=== PATIENT | male | born 1960 | race Caucasian/White ===

== ENCOUNTER 2020-08-07 17:26 | Emergency (ER) | payer BC, SELFPAY ==
[2020-08-07] VITALS (11 sets, daily range): BP systolic 88–109; BP diastolic 59–74; PULSE 72–92; RESP 16; TEMP 36.8; O2SAT 95–100; BMI 26.9
[2020-08-07 17:48] LABS: INR 1.2 (0.9-1.3); Prothrombin Time 13.7 SECONDS (10.1-12.7)
[2020-08-07 17:50] LABS: PTT Partial Thromboplastin Tim 29 SECONDS (26.4-36.2)
[2020-08-07 17:52] LABS: Alanine Aminotransferase 70 IU/L (<50); Albumin Globulin Ratio 1.3 (1.0-2.8); Alkaline Phosphatase 166 U/L (38-126); Aspartate Aminotransferase 36 IU/L (17-59); BUN Creatinine Ratio 20.4 (6-22); Bilirubin Total 1.1 mg/dL (0.2-1.3); Blood Urea Nitrogen 11 mg/dL (9-20); Calcium 8.1 mg/dL (8.4-10.2); Carbon Dioxide 28 mmol/L (22-32); Chloride 106 mmol/L (98-107); Estimated Glomerular Filt Rate > 60.0 mL/min (>60); Globulin 2.4 g/dL (1.7-4.1); Glucose 101 mg/dL (70-100); HEMOLYSIS < 15 (0-50); Hematocrit 29.5 % (41-53); Lipase < 10 U/L (23-300); Mean Corpuscular HGB Conc 33.8 % (30-36); Mean Corpuscular Hemoglobin 33.1 PG (26-34); Mean Corpuscular Volume 97.9 fL (80-100); Platelet Count 63 X10^3/uL (150-400); Potassium 3.4 mmol/L (3.4-5.1); Red Blood Cell Count 3.01 X10^6/uL (4.5-5.9); Sodium 134 mmol/L (137-145); Total Protein 5.4 g/dL (6.3-8.2)
[2020-08-07 17:54] LABS: Add Manual Diff / Slide Review YES
[2020-08-07 18:12] LABS: Neutrophils Absolute Manual 570 /uL (3000-5900); RBC Morphology Normal Morphology; Total Cells Counted 100
[2020-08-07 18:13] LABS: Platelet Estimate Decreased on smear
--- NOTE | 2020-08-07 18:21 | ED.GENADULT ---
HPI - General Adult General Chief complaint: Abdominal Pain Stated complaint: Abdominal Pain Time Seen by Provider: 08/07/20 17:57 Source: patient Mode of arrival: EMS Limitations: no limitations History of Present Illness HPI narrative: Patient is a 60-year-old male. History of cholangiocarcinoma. Had a Whipple approximately 2 years ago. Is currently being seen by Oncology at [facility]. His last chemo was approximately 1 week ago. Here for evaluation of bilateral lower abdominal pain. States it is a sharp pain. Has had diarrhea since the surgery and this is not changed. No changes urinary status. No vomiting. No fevers. Related Data Allergies Allergy/AdvReac Type Severity Reaction Status Date / Time erythromycin base Allergy Verified 08/07/20 17:39 Penicillins Allergy Verified 08/07/20 17:39 Review of Systems Constitutional Constitutional: Denies fever(s) Cardiovascular Cardiovascular: Denies chest pain and Denies dyspnea Respiratory Respiratory: Denies dyspnea Gastrointestinal Gastrointestinal: Reports abdominal pain, Reports diarrhea (Not new), Denies nausea and Denies vomiting Genitourinary Genitourinary: Denies dysuria Genitourinary: Denies dysuria Musculoskeletal Musculoskeletal: Denies arthralgias and Denies myalgias Integumentary/Breasts Skin/Breast: Denies lesions and Denies rash Neurologic Neurologic: Denies behavioral changes Psychiatric Psychiatric: Denies behavioral changes Hematologic/Lymphatic On Anticoagulants: No Allergic/Immunologic Allergic/Immunologic: Denies urticaria Patient History Medical History Cholangiocarcinoma Lqumx-Hmfvhsdjr-Tvlyv syndrome Social History Smoking Status: Former smoker Smoking Status: Former smoker alcohol intake frequency: 0-2 drinks per day Substance Use Type: does not use Exam Initial Vital Signs Initial Vital Signs: Vital Signs Temperature 98.2 F 08/07/20 17:25 Pulse Rate 92 H 08/07/20 17:25 Respiratory Rate 16 08/07/20 17:25 Blood Pressure 105/59 L 08/07/20 17:25 Pulse Oximetry 100 08/07/20 17:25 Const General: cooperative, comfortable and well developed Limitations: mental status not altered HENMT Head: normal to inspection and normocephalic Resp Effort & Inspection: normal respiratory effort Auscultation: clear to auscultation bilaterally Cardio Rate: regular rate Rhythm: regular rhythm GI Inspection: non-distended Palpation: soft, No firm and tender (Bilateral lower abdomen) Skin Other: Well-healed surgical incision midline abdomen consistent with stated Whipple history Neuro General: patient alert and patient awake Cognition: normal cognition Speech: speech normal Extrem General: capillary refill normal Psych Appearance: grossly normal and well kempt Course Orders Ordered: ED Orders 08/07/20 17:31 Complete Blood Count AUTO DIFF Stat Comprehensive Metabolic Panel Stat Lipase Stat Partial Thromboplastin Time Stat Prothrombin Time INR Stat 08/07/20 17:40 EKG-12 Lead Stat 08/07/20 18:22 CT abdomen pelvis w con Stat Discontinued Medications Hydromorphone HCl (Hydromorphone 1 Mg Inj) 1 mg IV NOW ONE Stop: 08/07/20 18:50 Last Admin: 08/07/20 18:54 Dose: 1 mg Documented by: LEONARD Sodium Chloride (Normal Saline 0.9%) 1,000 mls @ 1,000 mls/hr IV BOLUS ONE Stop: 08/07/20 19:20 Last Infusion: 08/07/20 20:35 Dose: 0 mls/hr Documented by: Admin: 08/07/20 18:54 Dose: 1,000 mls/hr Documented by: LEONARD Vital Signs Vital signs: Vital Signs - 8 hr 08/07/20 17:25 08/07/20 17:37 08/07/20 18:00 Temperature 98.2 F Pulse Rate 92 H 92 H 80 Respiratory Rate 16 Blood Pressure 105/59 L 96/68 Pulse Oximetry 100 100 100 08/07/20 18:30 08/07/20 18:54 08/07/20 19:00 Temperature Pulse Rate 76 82 Respiratory Rate Blood Pressure 106/63 109/74 95/65 Pulse Oximetry 100 95 100 08/07/20 19:30 08/07/20 20:00 08/07/20 20:24 Temperature Pulse Rate 77 72 82 Respiratory Rate Blood Pressure 94/64 94/69 99/66 Pulse Oximetry 96 99 99 08/07/20 20:30 08/07/20 20:32 Temperature Pulse Rate 74 79 Respiratory Rate Blood Pressure 88/66 L 93/62 Pulse Oximetry 100 100 Medical Decision Making Lab Data Lab results reviewed: Yes I reviewed the patient's lab results. Result diagrams: 08/07/20 17:31 08/07/20 17:31 Labs: Lab Results 08/07/20 08/07/20 08/07/20 Range/Units 17:31 17:31 17:31 WBC 1.0 L* (4.5-11.0) X10^3/uL RBC 3.01 L (4.5-5.9) X10^6/uL Hgb 10.0 L (13.5-17.5) g/dL Hct 29.5 L (41-53) % MCV 97.9 (80-100) fL MCH 33.1 (26-34) PG MCHC 33.8 (30-36) % RDW 15.0 H (11.6-14.8) % Plt Count 63 L (150-400) X10^3/uL Neut % (Auto) Not Reportable Lymph % (Auto) Not Reportable Price % (Auto) Not Reportable Eos % (Auto) Not Reportable Baso % (Auto) Not Reportable Lymph # (Auto) Not Reportable Price # (Auto) Not Reportable Baso # (Auto) Not Reportable Total Counted 100 Seg Neutrophils % 57.0 (38-70) % Lymphocytes % (Manual) 28.0 (25-45) % Monocytes % (Manual) 14.0 H (2-11) % Eosinophils % (Manual) 1.0 L (2-4) % Neutrophils # (Manual) 570 L (2948-8150) /uL Platelet Estimate Decreased on smear RBC Morphology Normal morphology PT 13.7 H (10.1-12.7) SECONDS INR 1.2 (0.9-1.3) APTT 29 (26.4-36.2) SECONDS Sodium 134 L (137-145) mmol/L Potassium 3.4 (3.4-5.1) mmol/L Chloride 106 (98-107) mmol/L Carbon Dioxide 28 (22-32) mmol/L BUN 11 (9-20) mg/dL Creatinine 0.54 L (0.66-1.25) mg/dL Estimated GFR > 60.0 (>60) mL/min BUN/Creatinine Ratio 20.4 (6-22) Glucose 101 H (70-100) mg/dL Calcium 8.1 L (8.4-10.2) mg/dL Total Bilirubin 1.1 (0.2-1.3) mg/dL AST 36 (17-59) IU/L ALT 70 H (<50) IU/L Alkaline Phosphatase 166 H (38-126) U/L Total Protein 5.4 L (6.3-8.2) g/dL Albumin 3.0 L (3.5-5.0) g/dL Globulin 2.4 (1.7-4.1) g/dL Albumin/Globulin Ratio 1.3 (1.0-2.8) Lipase < 10 L (23-300) U/L Imaging Data CT scan - abdomen/pelvis: Radiologist's Impression: [address] [id number] Scan ReportSigned Patient: Hiram Dai CMR#: [id number]: 1Acct:[id number]/Sex: 60 / MDate of Service: 08/07/20Loc: EDAccession Number: [id number] Procedure: CT abdomen pelvis w con Ordering Provider: Alvin Braga D.O. PROCEDURE: CT ABDOMEN PELVIS W CON INDICATIONS: Bilateral lower abdominal pain TECHNIQUE: After the administration of intravenous contrast, 5 mm thick sections acquired from the diaphragm to the symphysis. 5 mm coronal and sagittal reformats were acquired. For radiation dose reduction, the following was used: automated exposure control, adjustment of mA and/or kV according to patient size. COMPARISON: Outside Film, CT, CT ABDOMEN PELVIS WITH CONTRAST, 07/10/2018, 23:51. [facility], CT, CT ABDOMEN WITH CONTRAST, 06/14/2019, 8:43. Outside Film, CT, CT CHEST ABDOMEN PELVIS WITH CONTRAST, 09/04/2018, 8:27. Outside Film, CT, CT CHEST ABDOMEN PELVIS WITH CONTRAST, 05/27/2019, 12:03. Outside Film, CT, CT CHEST ABDOMEN PELVIS WITH CONTRAST, 12/24/2018, 12:16. Outside Film, CT, CT ABDOMEN PELVIS WITH CONTRAST, 10/27/2018, 9:33. Outside Film, CT, CT ABDOMEN PELVIS WITH CONTRAST, 10/13/2018, 9:06. Outside Film, CT, CT ABDOMEN PELVIS WITH CONTRAST, 10/05/2018, 8:07. Outside Film, CT, CT ABDOMEN PANCREATIC PROTOCOL, 09/27/2018, 22:07. Outside Film, CT, CT ABDOMEN PELVIS WITH CONTRAST, 09/25/2018, 8:26. FINDINGS: Image quality: Excellent. ABDOMEN: Lung bases: There is a 2.2 cm subpleural nodule in the left lower lobe, most likely round atelectasis. Small subcentimeter nodules are seen in left lower lobe are unchanged. Heart size is normal. Epicardial pacing device is noted. Solid organs: There are postsurgical changes related to with postprocedure. Liver is normal in size. There is mild intrahepatic biliary dilation is in the left hepatic lobe. Gallbladder is absent. There is a mass involving the pancreatic tail measuring 3.4 cm, new since the last CT dated 06/14/2019. There is irregular pancreatic duct dilation measuring up to 5 mm. Spleen is moderately enlarged. No adrenal nodules. Kidneys demonstrate normal size and enhancement, without hydronephrosis. Peritoneum and bowel: Bowel loops demonstrate normal wall thickness and caliber. No free air. There is a small amount of free fluid around the liver and in the pelvis. A 1.9 x 2.7 cm irregular soft tissue is seen in the anterior abdomen, probably within omentum or mesenteric. Nodes and vessels: No retroperitoneal or mesenteric adenopathy by size criteria. Aorta and inferior vena cava are normal in size. Miscellaneous: No ventral hernias. PELVIS: Genitourinary: Bladder wall thickness is normal. Prostate is enlarged. Miscellaneous: No inguinal adenopathy. There is a fat containing right inguinal hernia. Bones: No suspicious bony lesions. No vertebral body compression fractures. IMPRESSION: 1. There is a mass in the pancreatic tail measuring 3.4 cm, new since the last CT dated 06/14/2019, consistent with recurrent neoplasm. 2. Status post Whipple's procedure. There is irregular pancreatic duct dilation. Mild intrahepatic biliary dilation is noted. 3. There is a 1.9 x 2.7 cm irregular soft tissue in the anterior abdomen either within the omentum or mesentery, suspicious for omental/peritoneal carcinomatosis. A small amount of free peritoneal fluid is present. 4. A 2.2 cm round density in the left lung base, most likely round atelectasis. Comparison to more recent outside CT would be helpful. Recommend a short-term follow-up CT to ensure resolution. 5. Mild splenomegaly. The result was discussed with Dr. Braga. Dictated by: Delmy Nunez M.D. on 08/07/2020 at 19:02 Approved by: Delmy Nunez M.D. on 08/07/2020 at 19:20 ECG Data Attestation: I personally reviewed and interpreted this ECG as follows: Prior ECG tracings: not available for review Interpretation: Atrial fibrillation Ventricular rate 81 Right bundle-branch block Nonspecific ST T wave changes MDM Narrative Medical decision making narrative: Patient does have a low white blood cell count and also low platelets however he did receive chemotherapy 1 week ago. He is afebrile. He is having diarrhea but this is not new and he states that this has not caused any changes in his abdominal discomfort. His CT scan today does have abnormal findings however I discussed it with his oncologist at [facility]. The findings today are not emergent and his oncologist was going to talk with the radiologist at [facility] to see if they can compare the CT scan done today with more recent CT scans that we have here at our facility. No indication for antibiotics. Patient does have pain medicine already prescribed to him. I discussed this with him and his . His oncologist office going to contact him tomorrow for follow-up. He was given return precautions. He expressed understanding and agreement. Discharge Plan Departure Patient Disposition: Home Clinical Impression: Abdominal pain Instructions: DI for Abdominal Pain-Adult Activity Restrictions/Additional Instructions: Continue all of your medications as directed. You should be receiving a call from your oncologist tomorrow to discuss follow-up. Return to the emergency department for any new or worsening symptoms Referrals: Laurie Hammer PA-C [Primary Care Provider] -
[2020-08-07] MEDS: SODIUM CHLORIDE 0.9% 1,000 ML 1000 ML IV (18:54)
[2020-08-07] MEDS: HYDROMORPHONE 1 MG INJ IV (18:54)
== END 2020-08-07 20:50 | disposition home or self-care (01) ==
PROVIDERS: Emergency Medicine; Emergency Provider Emergency Medicine; PCP Physician Assistant
DX: R10.9 Unspecified abdominal pain (principal); D72.819 Decreased white blood cell count, unspecified; D69.6 Thrombocytopenia, unspecified; R19.7 Diarrhea, unspecified; Z85.09 Personal history of malignant neoplasm of other digestive organs
CPT/HCPCS: 36415; 74177; 80053; 83690; 85007; 85025; 85610; 85730; 93005; 96361; 96374; 99283; 99284; J1170

== ENCOUNTER 2021-02-01 18:41 | Inpatient (IN) | payer BC, SELFPAY ==
[2021-02-01] VITALS (10 sets, daily range): BP systolic 97–101; BP diastolic 55–64; PULSE 66–103; RESP 17–21; TEMP 37.3; O2SAT 90–98; BMI 24.2
[2021-02-01 19:20] LABS: COVID19 -Nasal RAPID POSITIVE (Negative)
--- NOTE | 2021-02-01 19:33 | DI.RAD.S_ITS ---
PROCEDURE: XR CHEST 1V INDICATIONS: COVID positive with hypoxia TECHNIQUE: One view of the chest was acquired. COMPARISON: [facility], CT, CT ABDOMEN PELVIS W CON, 08/07/2020, 18:37. FINDINGS: Surgical changes and devices: Port-A-Cath and sternotomy wire stable over time. Lungs and pleura: Lungs are abnormal with patchy bilateral alveolar infiltration involving the lungs, in a pattern consistent with the stated clinical history of atypical/viral pneumonia.. No pleural effusions or pneumothorax. Mediastinum: Mediastinal contours appear normal. Heart size is normal. Bones and chest wall: No suspicious bony lesions. Overlying soft tissues appear unremarkable. IMPRESSION: Moderately severe to severe atypical/viral pneumonia. No pneumothorax seen. Port-A-Cath in normal position. Prior sternotomy wires, presumed prior CABG. Dictated by: Shady Ann M.D. on 02/01/2021 at 20:36 Approved by: Shady Ann M.D. on 02/01/2021 at 20:37
--- NOTE | 2021-02-01 19:41 | ED_ITS ---
HPI - General Adult General Chief complaint: Upper Respiratory Symptoms Stated complaint: COUGH CHEMO WEEK AGO THURSDAY Time Seen by Provider: 02/01/21 19:31 Source: patient and family Mode of arrival: Wheelchair Limitations: no limitations History of Present Illness HPI narrative: Patient is a 60-year-old male. Has cholangiocarcinoma. Has had a Whipple procedure. Had chemotherapy approximately 1 week ago. He also has had 2 doses of the Pfizer vaccine with the 2nd dose being greater than 1 month ago. Here with evaluation of cough I and fevers and not feeling well over the past 4-5 days. He has not had any known sick contacts. Related Data Home Medications Medication Instructions Recorded Confirmed fluconazole 200 mg tablet mg DAILY 02/02/21 furosemide 20 mg tablet 20 mg DAILY 02/02/21 02/02/21 hydrocortisone 5 mg tablet 10 mg DAILY 02/02/21 02/02/21 metoprolol tartrate 100 mg tablet 25 mg BID 02/02/21 02/02/21 omeprazole 20 mg capsule,delayed 40 mg QID 02/02/21 02/02/21 release Allergies Allergy/AdvReac Type Severity Reaction Status Date / Time erythromycin base Allergy Verified 08/07/20 17:39 Penicillins Allergy Verified 08/07/20 17:39 Review of Systems Constitutional Constitutional: Reports fatigue and Reports fever(s) Cardiovascular Cardiovascular: Denies chest pain Respiratory Respiratory: Reports cough Gastrointestinal Gastrointestinal: Reports system reviewed and no additional complaints, except as documented Musculoskeletal Musculoskeletal: Reports system reviewed and no additional complaints, except as documented Integumentary/Breasts Skin/Breast: Reports system reviewed and no additional complaints, except as documented Neurologic Neurologic: Reports system reviewed and no additional complaints, except as documented Endocrine Endocrine: Reports fatigue Hematologic/Lymphatic On Anticoagulants: Yes Allergic/Immunologic Allergic/Immunologic: Reports system reviewed and no additional complaints, except as documented Patient History Medical History Cholangiocarcinoma COVID-19 vaccine series completed Jgwyy-Izrolusqc-Zwoxc syndrome Surgical History History of Whipple procedure Midline sternotomy scar Family History Mother CVA (cerebral vascular accident) Father Lung cancer Social History household members: spouse and family Smoking Status: Former smoker Smoking Status: Former smoker alcohol intake frequency: 0-2 drinks per day Substance Use Type: does not use Exam Initial Vital Signs Initial Vital Signs: Vital Signs Temperature 99.1 F 02/01/21 18:45 Pulse Rate 66 02/01/21 18:45 Respiratory Rate 20 02/01/21 18:45 Blood Pressure 97/64 02/01/21 18:45 Pulse Oximetry 90 L 02/01/21 18:45 Const General: cooperative and comfortable HENMT Head: normal to inspection and normocephalic Resp Effort & Inspection: normal respiratory effort Auscultation: clear to auscultation bilaterally Cardio Rate: regular rate Rhythm: regular rhythm GI Palpation: soft Skin General: no rashes or lesions noted Neuro General: patient alert, patient awake and patient oriented x3 Extrem General: normal to inspection and capillary refill normal Psych Appearance: grossly normal and well kempt Course Orders Ordered: ED Orders 02/01/21 19:01 COVID19 -Nasal swab/Pre-Proc Stat 02/01/21 19:33 XR chest 1V Stat 02/01/21 19:50 EKG-12 Lead Stat 02/01/21 20:33 Blood Culture Stat C-Reactive Protein Quant Stat Complete Blood Count AUTO DIFF Stat Comprehensive Metabolic Panel Stat Lactate (Lactic Acid) Stat Procalcitonin Stat Troponin & CK Cardiac Panel Stat 02/01/21 20:49 Arterial Blood Gas Stat Dexamethasone (Dexamethasone 10 Mg/Ml Vial) 6 mg IV DAILY CHAD POTASSIUM CHLORIDE IN WATER (Potassium Cl 10 Meq/100 Ml Josie) 10 meq in 100 mls @ 100 mls/hr IV Q1H CHAD Stop: 02/02/21 05:29 Last Admin: 02/02/21 01:50 Dose: 100 mls/hr Documented by: Infusion: 02/02/21 01:31 Dose: 100 mls/hr Documented by: Admin: 02/02/21 00:31 Dose: 100 mls/hr Documented by: Admin: 02/02/21 00:31 Dose: Not Given Documented by: MARITZA Remdesivir 100 mg/ Sodium (Chloride) 250 mls @ 250 mls/hr IV 2000 [facility] Azithromycin 500 mg/ Dextrose 250 mls @ 250 mls/hr IV Q24H [facility] Naloxone HCl (Naloxone 0.4 Mg/Ml Vial) 0.2 mg IV Q2MIN PRN PRN Reason: Opiate Reversal Ondansetron HCl (Ondansetron 4 Mg/2 Ml Inj) 4 mg IV Q8HR PRN PRN Reason: Nausea And Vomiting Discontinued Medications Dexamethasone (Dexamethasone 10 Mg/Ml Vial) 10 mg IV NOW ONE Stop: 02/01/21 19:34 Last Admin: 02/01/21 20:08 Dose: 10 mg Documented by: QUEENIE Remdesivir 200 mg/ Sodium (Chloride) 250 mls @ 250 mls/hr IV NOW ONE Stop: 02/01/21 19:34 Last Infusion: 02/01/21 21:51 Dose: 0 mls/hr Documented by: Admin: 02/01/21 20:50 Dose: 250 mls/hr Documented by: QUEENIE Azithromycin 500 mg/ Dextrose 250 mls @ 250 mls/hr IV NOW ONE Stop: 02/01/21 19:43 Last Admin: 02/01/21 20:12 Dose: Not Given Documented by: QUEENIE Azithromycin 500 mg/ Sodium (Chloride) 250 mls @ 250 mls/hr IV NOW ONE Stop: 02/01/21 21:14 Last Infusion: 02/01/21 22:11 Dose: 0 mls/hr Documented by: Admin: 02/01/21 21:04 Dose: 250 mls/hr Documented by: QUEENIE Azithromycin 500 mg/ Dextrose 250 mls @ 250 mls/hr IV Q24H [facility] Morphine Sulfate (Morphine 4 Mg/Ml Inj) 4 mg IV NOW ONE Stop: 02/01/21 20:48 Last Admin: 02/01/21 20:51 Dose: 4 mg Documented by: QUEENIE Potassium Chloride (Potassium Chloride 20 Meq Tab) 40 meq PO NOW ONE Stop: 02/01/21 23:25 Last Admin: 02/02/21 00:27 Dose: 40 meq Documented by: MARITZA Vital Signs Vital signs: Vital Signs - 8 hr 02/01/21 20:39 02/01/21 20:45 Pulse Rate 102 H Pulse Oximetry 97 97 Medical Decision Making Lab Data Lab results reviewed: Yes I reviewed the patient's lab results. Result diagrams: 02/01/21 20:33 02/01/21 20:33 Labs: Lab Results 02/01/21 02/01/21 02/01/21 Range/Units 10:33 10:33 10:33 WBC (4.5-11.0) X10^3/uL RBC (4.5-5.9) X10^6/uL Hgb (13.5-17.5) g/dL Hct (41-53) % MCV (80-100) fL MCH (26-34) PG MCHC (30-36) % RDW (11.6-14.8) % Plt Count (150-400) X10^3/uL Neut % (Auto) Not Reportable Lymph % (Auto) Not Reportable [place] % (Auto) Not Reportable Eos % (Auto) Not Reportable Baso % (Auto) Not Reportable Lymph # (Auto) Not Reportable [place] # (Auto) Not Reportable Baso # (Auto) Not Reportable Total Counted Seg Neutrophils % (38-70) % Lymphocytes % (Manual) (25-45) % Monocytes % (Manual) (2-11) % Eosinophils % (Manual) (2-4) % Neutrophils # (Manual) (6611-3631) /uL Platelet Estimate RBC Morphology Not Reportable Anisocytosis Macrocytosis D-Dimer 2728 H (<230) ng/mL Sodium (137-145) mmol/L Potassium (3.4-5.1) mmol/L Chloride (98-107) mmol/L Carbon Dioxide (22-32) mmol/L BUN (9-20) mg/dL Creatinine (0.66-1.25) mg/dL Estimated GFR (>60) mL/min BUN/Creatinine Ratio (6-22) Glucose (70-100) mg/dL Lactate (0.7-2.1) mmol/L Calcium (8.4-10.2) mg/dL Magnesium (1.6-2.3) mg/dL Ferritin 723 H (18-464) ng/mL Total Bilirubin (0.2-1.3) mg/dL AST (17-59) IU/L ALT (<50) IU/L Alkaline Phosphatase (38-126) U/L Lactate Dehydrogenase 402 (313-618) U/L Total Creatine Kinase (55-170) U/L CK-MB (CK-2) CK-MB (CK-2) Rel Index Troponin I (0.01-0.034) ng/mL C-Reactive Protein (<1.0) mg/dL Total Protein (6.3-8.2) g/dL Albumin (3.5-5.0) g/dL Globulin (1.7-4.1) g/dL Albumin/Globulin Ratio (1.0-2.8) Procalcitonin (<0.5) ng/mL SARS-CoV-2 (PCR) (Negative) 02/01/21 02/01/21 02/01/21 Range/Units 19:01 20:33 20:33 WBC 3.0 L (4.5-11.0) X10^3/uL RBC 2.91 L (4.5-5.9) X10^6/uL Hgb 9.6 L (13.5-17.5) g/dL Hct 28.3 L (41-53) % MCV 97.2 (80-100) fL MCH 33.1 (26-34) PG MCHC 34.0 (30-36) % RDW 19.3 H (11.6-14.8) % Plt Count 26 L* (150-400) X10^3/uL Neut % (Auto) Lymph % (Auto) [place] % (Auto) Eos % (Auto) Baso % (Auto) Lymph # (Auto) [place] # (Auto) Baso # (Auto) Total Counted 100 Seg Neutrophils % 93.0 H (38-70) % Lymphocytes % (Manual) 2.0 L (25-45) % Monocytes % (Manual) 4.0 (2-11) % Eosinophils % (Manual) 1.0 L (2-4) % Neutrophils # (Manual) 2790 L (0587-2639) /uL Platelet Estimate Decreased on smear RBC Morphology Anisocytosis 1+ H Macrocytosis 3+ H D-Dimer (<230) ng/mL Sodium 135 L (137-145) mmol/L Potassium 2.1 L* (3.4-5.1) mmol/L Chloride 106 (98-107) mmol/L Carbon Dioxide 22 (22-32) mmol/L BUN 14 (9-20) mg/dL Creatinine 0.51 L (0.66-1.25) mg/dL Estimated GFR > 60.0 (>60) mL/min BUN/Creatinine Ratio 27.5 H (6-22) Glucose 219 H (70-100) mg/dL Lactate (0.7-2.1) mmol/L Calcium 7.7 L (8.4-10.2) mg/dL Magnesium (1.6-2.3) mg/dL Ferritin (18-464) ng/mL Total Bilirubin 1.4 H (0.2-1.3) mg/dL AST 27 (17-59) IU/L ALT 20 (<50) IU/L Alkaline Phosphatase 115 (38-126) U/L Lactate Dehydrogenase (313-618) U/L Total Creatine Kinase < 20 L (55-170) U/L CK-MB (CK-2) TNP CK-MB (CK-2) Rel Index TNP Troponin I 0.018 (0.01-0.034) ng/mL C-Reactive Protein 13.9 H (<1.0) mg/dL Total Protein 5.3 L (6.3-8.2) g/dL Albumin 2.1 L (3.5-5.0) g/dL Globulin 3.2 (1.7-4.1) g/dL Albumin/Globulin Ratio 0.7 L (1.0-2.8) Procalcitonin (<0.5) ng/mL SARS-CoV-2 (PCR) Positive H (Negative) 02/01/21 02/01/21 02/01/21 Range/Units 20:33 20:33 20:33 WBC (4.5-11.0) X10^3/uL RBC (4.5-5.9) X10^6/uL Hgb (13.5-17.5) g/dL Hct (41-53) % MCV (80-100) fL MCH (26-34) PG MCHC (30-36) % RDW (11.6-14.8) % Plt Count (150-400) X10^3/uL Neut % (Auto) Lymph % (Auto) [place] % (Auto) Eos % (Auto) Baso % (Auto) Lymph # (Auto) [place] # (Auto) Baso # (Auto) Total Counted Seg Neutrophils % (38-70) % Lymphocytes % (Manual) (25-45) % Monocytes % (Manual) (2-11) % Eosinophils % (Manual) (2-4) % Neutrophils # (Manual) (2377-1514) /uL Platelet Estimate RBC Morphology Anisocytosis Macrocytosis D-Dimer (<230) ng/mL Sodium (137-145) mmol/L Potassium (3.4-5.1) mmol/L Chloride (98-107) mmol/L Carbon Dioxide (22-32) mmol/L BUN (9-20) mg/dL Creatinine (0.66-1.25) mg/dL Estimated GFR (>60) mL/min BUN/Creatinine Ratio (6-22) Glucose (70-100) mg/dL Lactate 4.2 H* (0.7-2.1) mmol/L Calcium (8.4-10.2) mg/dL Magnesium 1.9 (1.6-2.3) mg/dL Ferritin (18-464) ng/mL Total Bilirubin (0.2-1.3) mg/dL AST (17-59) IU/L ALT (<50) IU/L Alkaline Phosphatase (38-126) U/L Lactate Dehydrogenase (313-618) U/L Total Creatine Kinase (55-170) U/L CK-MB (CK-2) CK-MB (CK-2) Rel Index Troponin I (0.01-0.034) ng/mL C-Reactive Protein (<1.0) mg/dL Total Protein (6.3-8.2) g/dL Albumin (3.5-5.0) g/dL Globulin (1.7-4.1) g/dL Albumin/Globulin Ratio (1.0-2.8) Procalcitonin 0.36 (<0.5) ng/mL SARS-CoV-2 (PCR) (Negative) Imaging Data Chest x-ray: Radiologist's Impression: [address] [id number] ReportSigned Patient: Hiram Dai CMR#: [id number]: 1960cct:[id number]/Sex: 60 / MDate of Service: 02/01/21Loc: EDAccession Number: [id number] Procedure: XR chest 1V Ordering Provider: Alvin Braga D.O. PROCEDURE: XR CHEST 1V INDICATIONS: COVID positive with hypoxia TECHNIQUE: One view of the chest was acquired. COMPARISON: [facility], CT, CT ABDOMEN PELVIS W CON, 08/07/2020, 18:37. FINDINGS: Surgical changes and devices: Port-A-Cath and sternotomy wire stable over time. Lungs and pleura: Lungs are abnormal with patchy bilateral alveolar infiltration involving the lungs, in a pattern consistent with the stated clinical history of atypical/viral pneumonia.. No pleural effusions or pneumothorax. Mediastinum: Mediastinal contours appear normal. Heart size is normal. Bones and chest wall: No suspicious bony lesions. Overlying soft tissues appear unremarkable. IMPRESSION: Moderately severe to severe atypical/viral pneumonia. No pneumothorax seen. Port-A-Cath in normal position. Prior sternotomy wires, presumed prior CABG. Dictated by: Shady Ann M.D. on 02/01/2021 at 20:36 Approved by: Shady Ann M.D. on 02/01/2021 at 20:37 MDM Narrative Medical decision making narrative: Patient is COVID positive. Is hypoxic on room air. He improves with oxygen by nasal cannula. Given his hypoxia, chemotherapy status can chest x-ray patient does require admission to the hospital for further evaluation. He was started on remdesivir. Was given dexamethasone. He states he does have a allergy to erythromycin but states that he has had azithromycin in the past and has not had issues with this. This was also ordered for him. Discussed case with LIZZY Griffin the [facility] provider who will admit for further evaluation for treatment. I did discuss this with the patient as well. He expressed understanding and agreement. Discharge Plan Departure Patient Disposition: Admitted As Inpatient Clinical Impression: COVID-19, Hypoxia Admit Date/Time: 02/01/21 20:45 Admit Provider: Adri Griffin
[2021-02-01] MEDS: DEXAMETHASONE 10 MG/ML VIAL IV (20:08)
[2021-02-01 20:48] LABS: Hematocrit 28.3 % (41-53); Hemoglobin 9.6 g/dL (13.5-17.5); Mean Corpuscular Hemoglobin 33.1 PG (26-34); Mean Corpuscular Volume 97.2 fL (80-100); Red Blood Cell Count 2.91 X10^6/uL (4.5-5.9); Red Cell Distribution Width 19.3 % (11.6-14.8)
[2021-02-01 20:50] LABS: Add Manual Diff / Slide Review YES; Platelet Count 26 X10^3/uL (150-400)
[2021-02-01] MEDS: REMDESIVIR 200 MG in SODIUM CHLORIDE 0.9% 210 ML 250 ML IV (20:50)
[2021-02-01] MEDS: MORPHINE 4 MG/ML INJ IV (20:51)
[2021-02-01 20:59] LABS: Alanine Aminotransferase 20 IU/L (<50); Albumin 2.1 g/dL (3.5-5.0); Albumin Globulin Ratio 0.7 (1.0-2.8); Alkaline Phosphatase 115 U/L (38-126); Aspartate Aminotransferase 27 IU/L (17-59); BUN Creatinine Ratio 27.5 (6-22); Bilirubin Total 1.4 mg/dL (0.2-1.3); Blood Urea Nitrogen 14 mg/dL (9-20); Calcium 7.7 mg/dL (8.4-10.2); Carbon Dioxide 22 mmol/L (22-32); Chloride 106 mmol/L (98-107); Creatine Kinase < 20 U/L (55-170); Estimated Glomerular Filt Rate > 60.0 mL/min (>60); Globulin 3.2 g/dL (1.7-4.1); Glucose 219 mg/dL (70-100); HEMOLYSIS < 15 (0-50); Sodium 135 mmol/L (137-145); Total Protein 5.3 g/dL (6.3-8.2)
[2021-02-01 21:00] LABS: D Dimer 2728 ng/mL (<230)
[2021-02-01] MEDS: AZITHROMYCIN 500 MG in SODIUM CHLORIDE 0.9% 250 ML IV (21:04)
[2021-02-01 21:06] LABS: Neutrophils Absolute Manual 2790 /uL (3000-5900); Total Cells Counted 100
[2021-02-01 21:07] LABS: Anisocytosis 1+; Macrocytosis 3+
[2021-02-01 21:07] LABS: Lactate Dehydrogenase 402 U/L (313-618)
[2021-02-01 21:08] LABS: Platelet Estimate Decreased on smear; Troponin I 0.018 ng/mL (0.01-0.034)
--- NOTE | 2021-02-01 21:08 | PC.NURSE ---
Pt with cough and fever and SOB starting 4-5 days ago. stage 4 colangiocarcinoma. took home COVID test which was positive. Vaccinated in October with Pfizer x 2. Arrived to ED requiring O2 @ 4L to >94%. 90% RA. Last chemo 7 days ago. Lungs clear anteriorly, cough persistant with yellow exudate. temp 99.1. h/o afib and currently in afib at 94, BP 101/55. Port accessed in RUC with good blood return. 20G IV placed in RAC. RT in room for EKG and ABG. Labs drawn including BC x 2 before administration of ABX. appears calm and comfortable. medicated for pain with morphine 4mg. denies nausea. given warm blanket per request and lights dimmed for comfort.
[2021-02-01 21:14] LABS: Procalcitonin 0.36 ng/mL (<0.5)
[2021-02-01 21:20] LABS: C-Reactive Protein Quant 13.9 mg/dL (<1.0); Lactate (Lactic Acid) 4.2 mmol/L (0.7-2.1)
[2021-02-01 21:21] LABS: Potassium 2.1 mmol/L (3.4-5.1)
[2021-02-01 21:38] LABS: Ferritin 723 ng/mL (18-464)
--- NOTE | 2021-02-01 21:43 | PM.HP.1 ---
History of Present Illness History of Present Illness Date Patient Seen: 02/01/21 Chief complaint: Cough, found to be COVID + Narrative: Hiram Dai is a 60 y.o. male currently undergoing chemotherapy at [facility] for cholangiocarcinoma was seen there a week ago for his chemotherapy. He developed a cough and became short of breath. He took a home COVID test that resulted positive and presented today with increased hypoxia. He denies fevers sweats or chills, chest pain, nausea or vomiting, he has persistent diarrhea due to the Whipple procedure he underwent, denies constipation or neuropathy. Chest Xray ordered in the ED indicated bilateral atypical pneumonia. Patient is afebrile, blood pressure 100/77, heart rate 87, respiratory rate 16, oxygen saturation 95% on 4 L, he weighs 68 kg with a BMI of 24.2. His white count is depressed at 3.0 with a mild left shift RBC 2.91, hemoglobin 9.6, hematocrit 28.3, seriously low platelet count of 26, D-dimer is 01/30/2028, he has a compensated respiratory alkalosis with a pCO2 of 28.2 and an ABG O2 of 69, pH is 7.5, sodium 135, potassium 2.1, chloride 106, CO2 22, BUN 14, creatinine 0.51, with a GFR greater than 60, glucose is 209, lactate 2.9, calcium 7.7, ferritin 723, total bilirubin 1.4, the total CK of less than 20, C-reactive protein is 13.9, albumin is 2.1, procalcitonin is normal at 0.36, and COVID PCR is positive. Patient History Medical History (Updated 02/02/21 @ 02:36 by ISAURA Portillo) Cholangiocarcinoma COVID-19 vaccine series completed Ouhwk-Sicvczahu-Xozbf syndrome Surgical History History of Whipple procedure Midline sternotomy scar Family & Social History Family History Mother CVA (cerebral vascular accident) Father Lung cancer Safety & Behavioral: Feels Safe in Current Yes Environment Tobacco & Substance use: Smoking Status Former smoker alcohol intake frequency 0-2 drinks per day Substance Use Type does not use Meds Home Medications and Allergies Home Medications Medication Instructions Recorded Confirmed Type fluconazole 200 mg tablet mg DAILY 02/02/21 History furosemide 20 mg tablet 20 mg DAILY 02/02/21 02/02/21 History metoprolol tartrate 100 mg tablet 25 mg BID 02/02/21 02/02/21 History omeprazole 20 mg capsule,delayed mg DAILY 02/02/21 History release Allergies Allergy/AdvReac Type Severity Reaction Status Date / Time erythromycin base Allergy Verified 08/07/20 17:39 Penicillins Allergy Verified 08/07/20 17:39 Review of Systems Review of Systems ROS: Yes All systems reviewed with the patient and are negative except as otherwise documented Exam Vital Signs (past 8 hours): - 02/01/21 18:45 02/01/21 20:39 02/01/21 20:47 Temperature 99.1 F Pulse Rate 66 102 H 98 H Respiratory Rate 20 21 Blood Pressure 97/64 101/55 L Pulse Oximetry 90 L 97 97 02/01/21 21:00 Temperature Pulse Rate 102 H Respiratory Rate 17 Blood Pressure Pulse Oximetry 98 Oxygen Delivery Method Nasal Cannula Oxygen Flow Rate 4 Narrative Exam Narrative: Gen: Alert, oriented, cachectic and ill appearing 60 y.o. male, on a nasal cannula HEENT: normocephalic, atraumatic, conjunctiva clear, sclera non-icteric, oral mucosa pink and moist Neck: supple, full ROM, no JVD, trachea is midline Resp: Lungs CTA, non-labored breathing Chest: Portacath in place on right upper chest, no s/s of infection CV: RRR, no murmur or rubs Abd: soft, non-tender, normoactive BTs Skin: no lesions or rashes, dry and intact Neuro: Alert and oriented X 4 w/no focal deficits. Speech clear and coherent. Extremities: moves all 4 extremities, is ambulatory, negative Yajaira?s sign Psyche: normal mood and affect. Objective Labs Result Diagrams: 02/01/21 20:33 02/01/21 20:33 Labs: Laboratory Results - last 24 hr 02/01/21 02/01/21 02/01/21 10:33 10:33 10:33 WBC 3.0 L RBC 2.91 L Hgb 9.6 L Hct 28.3 L MCV 97.2 MCH 33.1 MCHC 34.0 RDW 19.3 H Plt Count 26 L* Neut % (Auto) Not Reportable Lymph % (Auto) Not Reportable [place] % (Auto) Not Reportable Eos % (Auto) Not Reportable Baso % (Auto) Not Reportable Lymph # (Auto) Not Reportable [place] # (Auto) Not Reportable Baso # (Auto) Not Reportable Total Counted 100 Seg Neutrophils % 93.0 H Lymphocytes % (Manual) 2.0 L Monocytes % (Manual) 4.0 Eosinophils % (Manual) 1.0 L Neutrophils # (Manual) 2790 L Platelet Estimate Decreased on smear RBC Morphology Not Reportable Anisocytosis 1+ H Macrocytosis 3+ H D-Dimer 2728 H Sodium Potassium Chloride Carbon Dioxide BUN Creatinine Estimated GFR BUN/Creatinine Ratio Glucose Lactate Calcium Ferritin 723 H Total Bilirubin AST ALT Alkaline Phosphatase Lactate Dehydrogenase 402 Total Creatine Kinase CK-MB (CK-2) CK-MB (CK-2) Rel Index Troponin I C-Reactive Protein Total Protein Albumin Globulin Albumin/Globulin Ratio Procalcitonin SARS-CoV-2 (PCR) 02/01/21 02/01/21 02/01/21 10:33 10:33 10:33 WBC RBC Hgb Hct MCV MCH MCHC RDW Plt Count Neut % (Auto) Lymph % (Auto) [place] % (Auto) Eos % (Auto) Baso % (Auto) Lymph # (Auto) [place] # (Auto) Baso # (Auto) Total Counted Seg Neutrophils % Lymphocytes % (Manual) Monocytes % (Manual) Eosinophils % (Manual) Neutrophils # (Manual) Platelet Estimate RBC Morphology Anisocytosis Macrocytosis D-Dimer Sodium 135 L Potassium 2.1 L* Chloride 106 Carbon Dioxide 22 BUN 14 Creatinine 0.51 L Estimated GFR > 60.0 BUN/Creatinine Ratio 27.5 H Glucose 219 H Lactate 4.2 H* Calcium 7.7 L Ferritin Total Bilirubin 1.4 H AST 27 ALT 20 Alkaline Phosphatase 115 Lactate Dehydrogenase Total Creatine Kinase < 20 L CK-MB (CK-2) TNP CK-MB (CK-2) Rel Index TNP Troponin I 0.018 C-Reactive Protein 13.9 H Total Protein 5.3 L Albumin 2.1 L Globulin 3.2 Albumin/Globulin Ratio 0.7 L Procalcitonin 0.36 SARS-CoV-2 (PCR) 02/01/21 19:01 WBC RBC Hgb Hct MCV MCH MCHC RDW Plt Count Neut % (Auto) Lymph % (Auto) [place] % (Auto) Eos % (Auto) Baso % (Auto) Lymph # (Auto) [place] # (Auto) Baso # (Auto) Total Counted Seg Neutrophils % Lymphocytes % (Manual) Monocytes % (Manual) Eosinophils % (Manual) Neutrophils # (Manual) Platelet Estimate RBC Morphology Anisocytosis Macrocytosis D-Dimer Sodium Potassium Chloride Carbon Dioxide BUN Creatinine Estimated GFR BUN/Creatinine Ratio Glucose Lactate Calcium Ferritin Total Bilirubin AST ALT Alkaline Phosphatase Lactate Dehydrogenase Total Creatine Kinase CK-MB (CK-2) CK-MB (CK-2) Rel Index Troponin I C-Reactive Protein Total Protein Albumin Globulin Albumin/Globulin Ratio Procalcitonin SARS-CoV-2 (PCR) Positive H Assessment & Plan Assessment & Plan narrative: Candi Dai is admitted to the inpatient service for further treatment of his hypoxia associated with a breakthrough COVID-19 associated hypoxia. 1. COVID-19 breakthrough infection in the setting of immunocompromize and fully and currently vaccinated, acute and present on admission He was adminstered IV Remdesivir, Dexamethasone, and Azithromycin and will be continued RT consult for hypoxia 2. Thrombocytopenia in the setting of right femoral DVT diagnosed 3 weeks ago and present on admission Patient was self administering enoxaparin 120 mg daily which will be held Current platelet count is 26 compared to 63 in July 2020. Recommendation is when his platelet count increases to over 50, he can resume his anticoagulation with enoxaparin. Consulted with Dr. Goldsmith, Oncologist at [facility]. Patient's Caprini calculated score placed him at the highest risk for a PE or other embolic event Monitor CBC daily 3. Severe hypokalemia, likely in the setting of persistent diarrhea, present on admission Potassium is 2.1 He will receive IV potassium riders 60 mEq and oral potassium 40 mEq X 1 and monitor potassium daily 4. History of atrial fibrillation, unknown if currently present He is rate controlled on Metoprolol tartrate 100 mg, his dose needs to be confirmed with his pharmacy VTE prophylaxis: Wells risk score: 7 Bilateral SCDs, when platelet count rises above 50, he can resume therapeutic dose of enoxaparin injections Consults: none Patient is admitted under inpatient status with expected length of stay greater than 2 midnights due to severity of presenting symptoms, risk of adverse event, and complexity of treatment plan. FEN: saline lock, regular diet , BMP and magnesium in the am. Dispo: unknown at this time Code Status: Full code, as discussed with patient who names his spouse, Adri as surrogate and POA COVID-19 COVID-19 status: Positive Result date/Date tested (Pos, Neg/Pending): 02/01/21 Scores Wells' Criteria for PE Clinical signs and symptoms of DVT: Yes PE is #1 Dx or equally likely: No Heart rate > 100: Yes Immobilization at least 3 days or surg in previous 4 weeks: No History of PE or DVT: Yes Hemoptysis: No Malignancy w/Treatment within 6 months or palliative: Yes Wells' PE Score total: 7.0 Quality VTE Deep Vein Thrombosis/Pulmonary Embolism Present on Admission: Yes MIPS - Admit I confirm the patient?s Advance Care Plan is present, Code status is documented, Surrogate decision maker is in patient?s record [If Yes, STOP here]: Yes
[2021-02-01 21:50] LABS: HCO3 ABG 22 mmol/L (22-26); PCO2 ABG 28.2 mmHg (35-45); PO2 ABG 69 mmHg (80-100); TCO2 ABG 23 mmol/L (21-31)
[2021-02-01 21:51] LABS: Fractionated Inspired Oxygen 36; Oxygen Saturation ABG 95 % (95-100)
[2021-02-01 22:42] LABS: Reflexed Lactate in 2 Hours Y
[2021-02-01 22:44] LABS: Magnesium 1.9 mg/dL (1.6-2.3)
[2021-02-01 23:27] LABS: Lactate 2HR (Lactic Acid Rflx) 2.9 mmol/L (0.7-2.1)
[2021-02-02] VITALS (10 sets, daily range): BP systolic 97–120; BP diastolic 48–77; PULSE 42–91; RESP 16–21; TEMP 36.5–36.9; O2SAT 93–100; BMI 24.2
[2021-02-02] MEDS: POTASSIUM CHLORIDE 20 MEQ TAB 40 MEQ PO (00:27)
[2021-02-02] MEDS: POTASSIUM CHLORIDE IN WATER 10 MEQ/100 ML PIGGYBACK 100 MEQ IV ×5 (00:31→05:00)
[2021-02-02 07:07] LABS: Add Manual Diff / Slide Review NO; Basophils Absolute Auto 0 /uL (0-100); Basophils Percent Auto 0.1 % (0-2); Eosinophils Absolute Auto 0 /uL (0-450); Hematocrit 24.8 % (41-53); Hemoglobin 8.5 g/dL (13.5-17.5); Lymphocytes Absolute Auto 100 /uL (1100-4500); Lymphocytes Percent Auto 7.5 % (25-40); Mean Corpuscular HGB Conc 34.2 % (30-36); Mean Corpuscular Hemoglobin 32.9 PG (26-34); Mean Corpuscular Volume 96.3 fL (80-100); Monocytes Absolute Auto 100 /uL (0-900); Monocytes Percent Auto 3.8 % (3-14); Neutrophils Absolute Auto 1400 /uL (1500-7000); Neutrophils Percent Auto 88.6 % (50-75); Red Blood Cell Count 2.58 X10^6/uL (4.5-5.9); Red Cell Distribution Width 18.9 % (11.6-14.8)
[2021-02-02 07:11] LABS: Platelet Count 19 X10^3/uL (150-400); White Blood Cell Count 1.6 X10^3/uL (4.5-11.0)
[2021-02-02 07:56] LABS: BUN Creatinine Ratio 30.4 (6-22); Blood Urea Nitrogen 14 mg/dL (9-20); Calcium 7.5 mg/dL (8.4-10.2); Carbon Dioxide 25 mmol/L (22-32); Chloride 108 mmol/L (98-107); Estimated Glomerular Filt Rate > 60.0 mL/min (>60); Glucose 226 mg/dL (70-100); HEMOLYSIS < 15 (0-50); Sodium 136 mmol/L (137-145)
[2021-02-02 07:57] LABS: Lactate Dehydrogenase 362 U/L (313-618)
[2021-02-02 08:07] LABS: C-Reactive Protein Quant 13.9 mg/dL (<1.0)
[2021-02-02 08:31] LABS: Platelet Estimate Decreased on smear; RBC Morphology Normal Morphology
[2021-02-02 08:32] LABS: Anisocytosis 1+; Macrocytosis 1+; Tear Drop Cells 1+
[2021-02-02] MEDS: DEXAMETHASONE 10 MG/ML VIAL 6 MG IV (10:02)
--- NOTE | 2021-02-02 11:22 | CM.DANOTE ---
Patient is a 60 year old male who was admitted on 02/01/21 for Cough/COVID. Pt has [employer] for insurance and his PCP is Dr. Ruby Peck. EMR was reviewed. Per MD, pt with hx of cholangiocarcinoma and receiving Chemo from [facility] at baseline. Pt developed hypoxia and cough and found to be COVID + and pt was fully vaccinated. Pt with DVT two weeks ago and MD unable to currently treat due to pt's count/lab levels. Pt not medically stable to d/c today and currently on room air. SW called pt's room phone due to COVID+ precautions and pt able to participate in discussion. Pt confirms that he lives at home with his spouse and adult Dtr and 2 grandchildren in [place]. Pt states his spouse is his DPOA and she plans to bring in a copy to the hospital today. Pt confirms that he and his family are all COVID vaccinated and no one else in the household showing signs of sickness or COVID. Pt states his is currently not working due to pt's Chemo/cancer dx and needs and therefore she is home and available for assist if needed. Pt drives and typically does not use DME to ambulate and is hopeful to d/c home when stable and family can transport him home and he does not anticipate any needs at discharge. Pt denies any hx of HH or SNF and states his next chemo appt at [facility] is next Thursday02/08/21. Plan: SW to follow closely for pt's progress with COVID recovery and cancer at baseline towards confirming safe d/c home with spouse and family assist and any further identified needs. RASHID Brower Discharge Planning/Care Management CM Discharge Assessment Start: 02/02/21 11:19 Freq: Status: Active Protocol: Document 02/02/21 11:20 BF (Rec: 02/02/21 11:22 [id number]) Discharge Planning Assessment Assigned Production Line Manager RASHID Rajan DPOA/Assigned Designee Name spouse Faina Contact Information [phone] Advance Directives? Yes Advance Directives on File No: spouse bringing today History Provided By Patient,Medical Record Has Patient been admitted in last 30 No days? Prior Living Arrangements House Household Members spouse,family Comment Spouse, adult Dtr, and two grandchildren Type of transporation used prior to Relies on Others admit Independent with ADL's Yes Is patient alert and oriented? Yes Needs Assistance With Managing Medications,Home Chores / Shopping Caregiver for Another No: grandchildren in the home though Community Services used prior to IV Therapy admission: Comment Chemo at [facility] appt scheduled for 02/08/21 Barriers to Discharge No Discharge Plan Home Transportation Arrangement spouse or Dtr can transport at d/c Referrals Initiated None needed Additional Comment Pending pt progress and DVT Whiteboard Updated in Patient Room with Yes name and ext. # of Production Line Manager Review Status In Process Please Provide Date Initial DC 02/02/21 Assessment Was Performed Next Review Type Continued Stay Review
--- NOTE | 2021-02-02 11:45 | PC.NURSE ---
Desat to 88% on 4L; RT consulted and pt and O2 increased to 5L NC; IS 1800; dry cough with deep breathing; pt denies pain and SOB with rest; BL 1+ ankle edema; pt encouraged to use call light, as needed
--- NOTE | 2021-02-02 16:44 | PM.PN.1 ---
Subjective Subjective Date Patient Seen: 02/02/21 Time Patient Seen: 16:45 Interval history: This is a 60-year-old male with a history of metastatic cholangiocarcinoma who is admitted with acute respiratory failure secondary to COVID-19. His oxygen requirement has increased slightly to 5 L today. He complains of chronic diarrhea since his whipple surgery, no recent changes. He denies nausea or vomiting. Feels slightly improved compared to yesterday but quite weak. Just received chemotherapy last Thursday. Exam Vital Signs (past 8 hours): - 02/02/21 10:40 02/02/21 12:10 02/02/21 16:00 Temperature 97.9 F 97.7 F Pulse Rate 70 42 L Respiratory Rate 21 16 Blood Pressure 120/74 112/55 L Pulse Oximetry 93 94 96 Oxygen Delivery Method Nasal Cannula Oxygen Flow Rate 5 Narrative Exam Narrative: Gen: Alert, oriented, cachectic and ill appearing 60 y.o. male, on a nasal cannula HEENT: normocephalic, atraumatic, conjunctiva clear, sclera non-icteric, oral mucosa pink and moist Neck: supple, full ROM, no JVD, trachea is midline Resp: coarse breath sounds bilaterally, no wheezing bilaterally. Chest: Portacath in place on right upper chest, no erythema or induration. CV: bradycardic with regular rhythm, no m/r/g. Abd: soft, non-tender, normoactive BTs Skin: bilateral hand ecchymoses, and possible purplish purpura though just on the dorsum of hands for now. Neuro: Alert and oriented X 4 w/no focal deficits. Speech clear and coherent. Extremities: moves all 4 extremities, is ambulatory, negative Yajaira?s sign Psyche: normal mood and affect. Objective Labs Result Diagrams: 02/02/21 06:45 02/02/21 06:45 Labs: Laboratory Results - last 24 hr 02/01/21 02/01/21 02/01/21 10:33 10:33 10:33 WBC RBC Hgb Hct MCV MCH MCHC RDW Plt Count Neut % (Auto) Not Reportable Lymph % (Auto) Not Reportable Rogers % (Auto) Not Reportable Eos % (Auto) Not Reportable Baso % (Auto) Not Reportable Neut # (Auto) Lymph # (Auto) Not Reportable Rogers # (Auto) Not Reportable Eos # (Auto) Baso # (Auto) Not Reportable Total Counted Seg Neutrophils % Lymphocytes % (Manual) Monocytes % (Manual) Eosinophils % (Manual) Neutrophils # (Manual) Platelet Estimate RBC Morphology Not Reportable Anisocytosis Macrocytosis Tear Drop Cells D-Dimer 2728 H ABG pH ABG pCO2 ABG pO2 ABG HCO3 ABG Total CO2 ABG O2 Saturation ABG Base Excess FiO2 Sodium Potassium Chloride Carbon Dioxide BUN Creatinine Estimated GFR BUN/Creatinine Ratio Glucose Lactate Calcium Magnesium Ferritin 723 H Total Bilirubin AST ALT Alkaline Phosphatase Lactate Dehydrogenase 402 Total Creatine Kinase CK-MB (CK-2) CK-MB (CK-2) Rel Index Troponin I C-Reactive Protein Total Protein Albumin Globulin Albumin/Globulin Ratio Procalcitonin SARS-CoV-2 (PCR) 02/01/21 02/01/21 02/01/21 19:01 20:33 20:33 WBC 3.0 L RBC 2.91 L Hgb 9.6 L Hct 28.3 L MCV 97.2 MCH 33.1 MCHC 34.0 RDW 19.3 H Plt Count 26 L* Neut % (Auto) Lymph % (Auto) Rogers % (Auto) Eos % (Auto) Baso % (Auto) Neut # (Auto) Lymph # (Auto) Rogers # (Auto) Eos # (Auto) Baso # (Auto) Total Counted 100 Seg Neutrophils % 93.0 H Lymphocytes % (Manual) 2.0 L Monocytes % (Manual) 4.0 Eosinophils % (Manual) 1.0 L Neutrophils # (Manual) 2790 L Platelet Estimate Decreased on smear RBC Morphology Anisocytosis 1+ H Macrocytosis 3+ H Tear Drop Cells D-Dimer ABG pH ABG pCO2 ABG pO2 ABG HCO3 ABG Total CO2 ABG O2 Saturation ABG Base Excess FiO2 Sodium 135 L Potassium 2.1 L* Chloride 106 Carbon Dioxide 22 BUN 14 Creatinine 0.51 L Estimated GFR > 60.0 BUN/Creatinine Ratio 27.5 H Glucose 219 H Lactate Calcium 7.7 L Magnesium Ferritin Total Bilirubin 1.4 H AST 27 ALT 20 Alkaline Phosphatase 115 Lactate Dehydrogenase Total Creatine Kinase < 20 L CK-MB (CK-2) TNP CK-MB (CK-2) Rel Index TNP Troponin I 0.018 C-Reactive Protein 13.9 H Total Protein 5.3 L Albumin 2.1 L Globulin 3.2 Albumin/Globulin Ratio 0.7 L Procalcitonin SARS-CoV-2 (PCR) Positive H 02/01/21 02/01/21 02/01/21 20:33 20:33 20:33 WBC RBC Hgb Hct MCV MCH MCHC RDW Plt Count Neut % (Auto) Lymph % (Auto) Rogers % (Auto) Eos % (Auto) Baso % (Auto) Neut # (Auto) Lymph # (Auto) Rogers # (Auto) Eos # (Auto) Baso # (Auto) Total Counted Seg Neutrophils % Lymphocytes % (Manual) Monocytes % (Manual) Eosinophils % (Manual) Neutrophils # (Manual) Platelet Estimate RBC Morphology Anisocytosis Macrocytosis Tear Drop Cells D-Dimer ABG pH ABG pCO2 ABG pO2 ABG HCO3 ABG Total CO2 ABG O2 Saturation ABG Base Excess FiO2 Sodium Potassium Chloride Carbon Dioxide BUN Creatinine Estimated GFR BUN/Creatinine Ratio Glucose Lactate 4.2 H* Calcium Magnesium 1.9 Ferritin Total Bilirubin AST ALT Alkaline Phosphatase Lactate Dehydrogenase Total Creatine Kinase CK-MB (CK-2) CK-MB (CK-2) Rel Index Troponin I C-Reactive Protein Total Protein Albumin Globulin Albumin/Globulin Ratio Procalcitonin 0.36 SARS-CoV-2 (PCR) 02/01/21 02/01/21 02/02/21 20:49 23:10 06:45 WBC 1.6 L* RBC 2.58 L Hgb 8.5 L Hct 24.8 L MCV 96.3 MCH 32.9 MCHC 34.2 RDW 18.9 H Plt Count 19 L* Neut % (Auto) 88.6 H Lymph % (Auto) 7.5 L Rogers % (Auto) 3.8 Eos % (Auto) 0.0 L Baso % (Auto) 0.1 Neut # (Auto) 1400 L Lymph # (Auto) 100 L Rogers # (Auto) 100 Eos # (Auto) 0 Baso # (Auto) 0 Total Counted Seg Neutrophils % Lymphocytes % (Manual) Monocytes % (Manual) Eosinophils % (Manual) Neutrophils # (Manual) Platelet Estimate Decreased on smear RBC Morphology Normal morphology Anisocytosis 1+ H Macrocytosis 1+ H D Tear Drop Cells 1+ H D-Dimer ABG pH 7.50 H ABG pCO2 28.2 L ABG pO2 69 L ABG HCO3 22 ABG Total CO2 23 ABG O2 Saturation 95 ABG Base Excess -1.0 FiO2 36 Sodium Potassium Chloride Carbon Dioxide BUN Creatinine Estimated GFR BUN/Creatinine Ratio Glucose Lactate 2.9 H Calcium Magnesium Ferritin Total Bilirubin AST ALT Alkaline Phosphatase Lactate Dehydrogenase Total Creatine Kinase CK-MB (CK-2) CK-MB (CK-2) Rel Index Troponin I C-Reactive Protein Total Protein Albumin Globulin Albumin/Globulin Ratio Procalcitonin SARS-CoV-2 (PCR) 02/02/21 02/02/21 06:45 06:45 WBC RBC Hgb Hct MCV MCH MCHC RDW Plt Count Neut % (Auto) Lymph % (Auto) Rogers % (Auto) Eos % (Auto) Baso % (Auto) Neut # (Auto) Lymph # (Auto) Rogers # (Auto) Eos # (Auto) Baso # (Auto) Total Counted Seg Neutrophils % Lymphocytes % (Manual) Monocytes % (Manual) Eosinophils % (Manual) Neutrophils # (Manual) Platelet Estimate RBC Morphology Anisocytosis Macrocytosis Tear Drop Cells D-Dimer ABG pH ABG pCO2 ABG pO2 ABG HCO3 ABG Total CO2 ABG O2 Saturation ABG Base Excess FiO2 Sodium 136 L Potassium 3.0 L Chloride 108 H Carbon Dioxide 25 BUN 14 Creatinine 0.46 L Estimated GFR > 60.0 BUN/Creatinine Ratio 30.4 H Glucose 226 H Lactate Calcium 7.5 L Magnesium 2.0 Ferritin Total Bilirubin AST ALT Alkaline Phosphatase Lactate Dehydrogenase 362 Total Creatine Kinase CK-MB (CK-2) CK-MB (CK-2) Rel Index Troponin I C-Reactive Protein 13.9 H Total Protein Albumin Globulin Albumin/Globulin Ratio Procalcitonin SARS-CoV-2 (PCR) [facility] Medical History Cholangiocarcinoma COVID-19 vaccine series completed Avynm-Hkctkdonb-Xfffb syndrome Surgical History History of Whipple procedure Midline sternotomy scar Family History Mother CVA (cerebral vascular accident) Father Lung cancer Social History household members: spouse and family Smoking Status: Former smoker Assessment & Plan Assessment & Plan narrative: Candi Dai is admitted to the inpatient service for further treatment of his hypoxia associated with a breakthrough COVID-19 associated hypoxia. 1. COVID-19 pneumonia and acute respiratory failure with hypoxia. - patient was vaccinated. - continue remdesevir and decadron. - supportive care with pain control, fever suppression, and oxygen to maintain O2 >90% while on supplemental therapy. - increased requirements today to 5L. 2. 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 Patient was self administering enoxaparin 120 mg daily which is held currently. Current platelet count is 26 compared to 63 in July 2020. Also has ? ITP based on oncology note that is scanned, though he does not appear to have any chronic medications related to ITP. Recommendation is when his platelet count increases to over 50, he can resume his anticoagulation with enoxaparin. Consulted with Dr. Goldsmith, Oncologist at [facility]. have sent a HIT antibody given thrombosis and apparent worsening of thrombocytopenia and recent initiation of Lovenox. 4T score of 4, however vague presntation and alternative cause could be his acute infection or recent chemo which is more likely. 3. Severe hypokalemia, likely in the setting of persistent diarrhea, present on admission Potassium is 2.1 on admission, improved with repletion to 3.0 4. History of atrial fibrillation, unknown if currently present somewhat bradycardic today, will hold home beta mara for now. 5. Cholangiocarcinoma, s/p whipple procedure - continue creon - has mets to lung based on oncology note from 6 months ago. Chemo was last done on Thursday 01/25 per patient. VTE prophylaxis: SCDs, can resume lovenox as noted above when thrombocytopenia improves. Consults: none Dispo: likely discharge home, timing uncertain currently. Code Status: Full code, as discussed with patient who names his spouse, Adri as surrogate and POA COVID-19 COVID-19 status: Positive Result date/Date tested (Pos, Neg/Pending): 02/01/21 Quality VTE Deep Vein Thrombosis/Pulmonary Embolism Present on Admission: Yes
--- NOTE | 2021-02-02 16:54 | PC.NURSE ---
Adri, POC, notified about patient's lipase dosing per pharmacist. Adri states she can be here in the morning with the patient's medication. Pharmacy notified.
[2021-02-02] MEDS: REMDESIVIR 100 MG in SODIUM CHLORIDE 0.9% 230 ML 250 ML IV (19:50)
[2021-02-02] MEDS: ACETAMINOPHEN 325 MG TABLET 650 MG PO (19:50)
[2021-02-02] MEDS: AZITHROMYCIN 500 MG in DEXTROSE 5% IN WATER 250 ML IV (21:43)
[2021-02-03] VITALS (10 sets, daily range): BP systolic 91–101; BP diastolic 52–72; PULSE 50–103; RESP 18–22; TEMP 36.4–36.6; O2SAT 88–94
--- NOTE | 2021-02-03 00:50 | PC.NURSE ---
0045- Patient noted to have bradycardia rate as low as 35. RN Tiny notified.
[2021-02-03] MEDS: ACETAMINOPHEN 325 MG TABLET 650 MG PO (06:53)
[2021-02-03 07:22] LABS: Add Manual Diff / Slide Review NO; Basophils Absolute Auto 0 /uL (0-100); Basophils Percent Auto 0.1 % (0-2); Eosinophils Absolute Auto 0 /uL (0-450); Hematocrit 23.5 % (41-53); Hemoglobin 7.9 g/dL (13.5-17.5); Lymphocytes Absolute Auto 100 /uL (1100-4500); Lymphocytes Percent Auto 7.5 % (25-40); Mean Corpuscular HGB Conc 33.7 % (30-36); Mean Corpuscular Hemoglobin 32.9 PG (26-34); Mean Corpuscular Volume 97.6 fL (80-100); Monocytes Absolute Auto 100 /uL (0-900); Monocytes Percent Auto 4.2 % (3-14); Neutrophils Absolute Auto 1500 /uL (1500-7000); Neutrophils Percent Auto 88.2 % (50-75); Red Blood Cell Count 2.41 X10^6/uL (4.5-5.9); Red Cell Distribution Width 18.8 % (11.6-14.8)
[2021-02-03 07:24] LABS: White Blood Cell Count 1.7 X10^3/uL (4.5-11.0)
[2021-02-03 07:25] LABS: Platelet Count 12 X10^3/uL (150-400)
[2021-02-03 07:29] LABS: Alanine Aminotransferase 17 IU/L (<50); Albumin 1.9 g/dL (3.5-5.0); Albumin Globulin Ratio 0.6 (1.0-2.8); Alkaline Phosphatase 96 U/L (38-126); Aspartate Aminotransferase 20 IU/L (17-59); BUN Creatinine Ratio 37.8 (6-22); Bilirubin Total 0.5 mg/dL (0.2-1.3); Blood Urea Nitrogen 17 mg/dL (9-20); Calcium 7.6 mg/dL (8.4-10.2); Carbon Dioxide 24 mmol/L (22-32); Chloride 107 mmol/L (98-107); Estimated Glomerular Filt Rate > 60.0 mL/min (>60); Globulin 3.1 g/dL (1.7-4.1); Glucose 214 mg/dL (70-100); HEMOLYSIS < 15 (0-50); Sodium 134 mmol/L (137-145)
[2021-02-03 07:32] LABS: Potassium 2.5 mmol/L (3.4-5.1)
--- NOTE | 2021-02-03 07:52 | PC.NURSE ---
Nurse received critical labs and was passed on to nurse in report, pt continues to have low plts 12, WBCs 1.4, and K+2.5. day shift nurse will check with provider to see if any new orders.
[2021-02-03] MEDS: FUROSEMIDE 20 MG TABLET PO (09:12)
[2021-02-03] MEDS: POTASSIUM CHLORIDE 20 MEQ TAB 40 MEQ PO ×2 (09:12→16:36)
[2021-02-03] MEDS: FLUCONAZOLE 100 MG TABLET 200 MG PO (09:12)
[2021-02-03] MEDS: DEXAMETHASONE 10 MG/ML VIAL 6 MG IV (09:13)
[2021-02-03 10:24] LABS: Anisocytosis 1+; Macrocytosis 1+; Platelet Estimate Decreased on smear
--- NOTE | 2021-02-03 10:28 | PC.NURSE ---
Addendum entered by Suzy Thompson R.N. 02/03/21 14:18: Patient now down to 3L o2 and sats are 94%. Patients in for a visit but did not know that she could not see him due to our covid guidelines. She brought in patients creon, and some personal belongings. Patients blood sugar 343, 4u of insulin given. Patient is getting decadron steroids. states that if platelet level falls to 10 or below we will transfuse him. Patient given one oxycodone earlier and helpful for back pain. Original Note: Assess- Patient is alert and oriented x3. He has 2+ edema to his l.arm and bilateral lower extremities. Patient is on 6L NC and his sats are any where from 83-90%. He was just up to the commode and is now sitting up in the chair, his sats were up to 97% Patient is going to sit up in recliner for a bit. Medications given, patient does have a cough and is bringing up some sputum. Unable to see color or consistency as he threw kleenex in the garbage. We will be getting a sputum sample as soon as he is able to cough something up. Breath sounds are decreased and he is congested. Resting in reclining chair now.
[2021-02-03] MEDS: OXYCODONE IR 5 MG TABLET PO (10:46)
[2021-02-03] MEDS: INSULIN LISPRO 100 UNIT/ML 3ML VIAL SUBCUT ×3 (11:58→21:08)
--- NOTE | 2021-02-03 14:23 | P.PN_ITS ---
Subjective Subjective Date Patient Seen: 02/03/21 Time Patient Seen: 14:24 Interval history: This is a 60-year-old male with a history of metastatic cholangiocarcinoma who is admitted with acute respiratory failure secondary to COVID-19. His oxygen requirement has remained stable today, and I was able to turn him down to 3L today. He complains of chronic diarrhea since his whipple surgery, no recent changes. He denies nausea or vomiting. Feels unchanged since yesterday. Cough was productive and sputum was sent for culture today. Exam Vital Signs (past 8 hours): - 02/03/21 09:10 02/03/21 09:24 02/03/21 10:45 Temperature 97.8 F Pulse Rate 86 Respiratory Rate 20 Blood Pressure 97/70 Pulse Oximetry 88 L 90 L 92 Oxygen Delivery Method Nasal Cannula Oxygen Flow Rate 6 Narrative Exam Narrative: Gen: Alert, oriented, cachectic and ill appearing 60 y.o. male, on a nasal cannula HEENT: normocephalic, atraumatic, conjunctiva clear, sclera non-icteric, oral mucosa pink and moist Neck: supple, full ROM, no JVD, trachea is midline Resp: coarse breath sounds bilaterally, no wheezing bilaterally. Chest: Portacath in place on right upper chest, no erythema or induration. CV: bradycardic with regular rhythm, no m/r/g. Abd: soft, non-tender, normoactive BTs Skin: bilateral hand ecchymoses, and possible purplish purpura though just on the dorsum of hands for now. No other rashes noted. Neuro: Alert and oriented X 4 w/no focal deficits. Speech clear and coherent. Extremities: moves all 4 extremities, is ambulatory, negative Yajaira?s sign Psyche: normal mood and affect. Objective Labs Result Diagrams: 02/03/21 06:45 02/03/21 06:45 Labs: Laboratory Results - last 24 hr 02/03/21 02/03/21 06:45 06:45 WBC 1.7 L* RBC 2.41 L Hgb 7.9 L Hct 23.5 L MCV 97.6 MCH 32.9 MCHC 33.7 RDW 18.8 H Plt Count 12 L* Neut % (Auto) 88.2 H Lymph % (Auto) 7.5 L Marinette % (Auto) 4.2 Eos % (Auto) 0.0 L Baso % (Auto) 0.1 Neut # (Auto) 1500 Lymph # (Auto) 100 L [place] # (Auto) 100 Eos # (Auto) 0 Baso # (Auto) 0 Platelet Estimate Decreased on smear RBC Morphology See below Anisocytosis 1+ H Macrocytosis 1+ H Sodium 134 L Potassium 2.5 L* Chloride 107 Carbon Dioxide 24 BUN 17 Creatinine 0.45 L Estimated GFR > 60.0 BUN/Creatinine Ratio 37.8 H Glucose 214 H Calcium 7.6 L Magnesium 2.0 Total Bilirubin 0.5 AST 20 ALT 17 Alkaline Phosphatase 96 Total Protein 5.0 L Albumin 1.9 L Globulin 3.1 Albumin/Globulin Ratio 0.6 L PFSH Medical History Cholangiocarcinoma COVID-19 vaccine series completed Iguyk-Ltjccknts-Gipjh syndrome Surgical History History of Whipple procedure Midline sternotomy scar Family History Mother CVA (cerebral vascular accident) Father Lung cancer Social History household members: spouse and family Smoking Status: Former smoker Assessment & Plan Assessment & Plan narrative: Candi Dai is admitted to the inpatient service for further treatment of his hypoxia associated with a breakthrough COVID-19 associated hypoxia. 1. COVID-19 pneumonia and acute respiratory failure with hypoxia. - patient was vaccinated. - continue remdesevir and decadron, today is day 3 of therapy. - supportive care with pain control, fever suppression, and oxygen to maintain O2 >90% while on supplemental therapy. - stable oxygenation requirements today. 2. Pancytopenia with recent right femoral DVT diagnosed 3 weeks ago and present on admission, also with prior history of ITP and chronic thrombocytopenia. Pancy topenia likely secondary to chemotherapy, possible COVID is contributing as well. -Patient was self administering enoxaparin 120 mg daily which is held currently. -Current platelet count is 26 compared to 63 in July 2020. Also has ? ITP based on oncology note that is scanned, though he does not appear to have any chronic medications related to ITP. -Recommendation is when his platelet count increases to over 50, he can resume his anticoagulation with enoxaparin. Consulted with Dr. Goldsmith, Oncologist at [facility]. -have sent a HIT antibody given thrombosis and apparent worsening of th rombocytopenia and recent initiation of Lovenox. 4T score of 4, however vague presentation and alternative cause could be his acute infection or recent chemo which is more likely. -transfuse for Plt <10, <50 if bleeding develops. No current signs of active bleeding. 3. Severe hypokalemia, likely in the setting of persistent diarrhea, present on admission Potassium is 2.1 on admission, improved with repletion to 3.0 though dipped again today. Will continue to follow. 4. History of atrial fibrillation, unknown if currently present somewhat bradycardic yesterday, will hold home beta mara for now. Also with soft BP today. 5. Cholangiocarcinoma, s/p whipple procedure - continue creon - has mets to lung based on oncology note from 6 months ago. Chemo was last done on Thursday 01/25 per patient. VTE prophylaxis: SCDs, can resume lovenox as noted above when thrombocytopenia improves. Consults: none Dispo: likely discharge home, timing uncertain currently. Code Status: Full code, as discussed with patient who names his spouse, Adri as surrogate and POA COVID-19 COVID-19 status: Positive Result date/Date tested (Pos, Neg/Pending): 02/01/21 Quality VTE Deep Vein Thrombosis/Pulmonary Embolism Present on Admission: Yes
--- NOTE | 2021-02-03 17:06 | PC.NURSE ---
Addendum entered by Sunita Menjivar R.N. 02/03/21 21:27: Tele showing a-fib x 2 per ICU staff. Addendum entered by Sunita Menjivar R.N. 02/03/21 21:21: Pt resting at intervals. Denies discomfort. O2 @ 3L SpO2 92% HL RAC & port right chest intact/patent. CBG @ HS 254, covered w/2u S/S Call light w/in reach, pt calls appropriately for needs. Continue w/plan of care. Original Note: Pt watching TV, States he has nausea, Med w/zofran w/good relief. Lungs diminished, SpO2 93% 3L O2 CBG 255, covered w/3u S/S as per orders. Right chest alicia cath intact, HL RAC intact/patent. Call light w/in reach, bed alarm on for pt safety.
[2021-02-03] MEDS: REMDESIVIR 100 MG in SODIUM CHLORIDE 0.9% 230 ML 250 ML IV (19:56)
[2021-02-03] MEDS: LIPASE PROTEASE AMYLASE 2 EACH PO (20:19)
[2021-02-03] MEDS: AZITHROMYCIN 500 MG in DEXTROSE 5% IN WATER 250 ML IV (21:45)
[2021-02-04] VITALS (12 sets, daily range): BP systolic 101–131; BP diastolic 67–83; PULSE 74–95; RESP 11–24; TEMP 36.6–37.1; O2SAT 88–96
[2021-02-04] MEDS: SODIUM CHLORIDE 0.9% FLUSH 10 ML IV ×4 (05:25→20:15)
[2021-02-04 06:03] LABS: Add Manual Diff / Slide Review NO; Basophils Absolute Auto 0 /uL (0-100); Basophils Percent Auto 0.2 % (0-2); Eosinophils Absolute Auto 0 /uL (0-450); Hemoglobin 8.5 g/dL (13.5-17.5); Lymphocytes Absolute Auto 100 /uL (1100-4500); Lymphocytes Percent Auto 5.9 % (25-40); Mean Corpuscular Hemoglobin 33.1 PG (26-34); Mean Corpuscular Volume 97.1 fL (80-100); Monocytes Absolute Auto 100 /uL (0-900); Monocytes Percent Auto 4.9 % (3-14); Neutrophils Absolute Auto 2100 /uL (1500-7000); Red Blood Cell Count 2.58 X10^6/uL (4.5-5.9); Red Cell Distribution Width 19.4 % (11.6-14.8); White Blood Cell Count 2.3 X10^3/uL (4.5-11.0)
[2021-02-04 06:05] LABS: Alanine Aminotransferase 15 IU/L (<50); Albumin 1.9 g/dL (3.5-5.0); Albumin Globulin Ratio 0.6 (1.0-2.8); Alkaline Phosphatase 96 U/L (38-126); Aspartate Aminotransferase 21 IU/L (17-59); BUN Creatinine Ratio 41.9 (6-22); Bilirubin Total 0.7 mg/dL (0.2-1.3); Blood Urea Nitrogen 18 mg/dL (9-20); Calcium 7.6 mg/dL (8.4-10.2); Carbon Dioxide 23 mmol/L (22-32); Chloride 109 mmol/L (98-107); Estimated Glomerular Filt Rate > 60.0 mL/min (>60); Globulin 3.2 g/dL (1.7-4.1); Glucose 204 mg/dL (70-100); HEMOLYSIS < 15 (0-50); Potassium 2.8 mmol/L (3.4-5.1); Sodium 135 mmol/L (137-145); Total Protein 5.1 g/dL (6.3-8.2)
[2021-02-04 06:13] LABS: Platelet Count 13 X10^3/uL (150-400)
[2021-02-04 06:16] LABS: Hemoglobin A1C% w Est Avg Glu 6.6 % (4.0-6.0)
[2021-02-04 06:37] LABS: Anisocytosis 1+; Macrocytosis 1+; Platelet Estimate Decreased on smear
[2021-02-04] MEDS: FLUCONAZOLE 100 MG TABLET 200 MG PO (07:36)
[2021-02-04] MEDS: DEXAMETHASONE 10 MG/ML VIAL 6 MG IV (07:36)
[2021-02-04] MEDS: LIPASE PROTEASE AMYLASE 2 EACH PO ×3 (07:38→18:13)
[2021-02-04] MEDS: INSULIN LISPRO 100 UNIT/ML 3ML VIAL SUBCUT ×4 (09:11→21:07)
--- NOTE | 2021-02-04 09:23 | DIET.PN ---
Dietary Progress Note RD Note: 60y M immune compromised (current chemo tx) fully vaccinated admitted for cough found to be covid+. Pts POs 25-50% c some nausea. Kitchen to send ONS Ensure Max c lunches to support protein and micronutrient intake.
--- NOTE | 2021-02-04 09:36 | PC.NURSE ---
Addendum entered by Maria Esther Lewis R.N. 02/04/21 14:56: Sats on 6L at rest 88-93%, after coughing and deep breathing sats up to 93%, patient c/o of just feeling weak. Had 2 episodes of liquid stool, patient reports this is chronic since his chemo, last chemo was January 25. Original Note: Patient alert, oriented, denies pain, does report shortness of breath with activity, sats on 4L 88%. Increased oxygen to 6L, lungs sound clear, no productive cough. Patient assisted up to BSC had mix of urine and liquid stool. Patient bathed and bed changed out. Patient encouraged to prone, patient states he cant lie on his stomach, is agreeable to lie on his side. RT in to assess, sats on 6L 90%, Dr Hidalgo aware.
[2021-02-04] MEDS: cefTRIAXone 1,000 MG in SODIUM CHLORIDE 0.9% 100 ML 200 ML IV (13:01)
[2021-02-04] MEDS: POTASSIUM CHLORIDE 20 MEQ TAB 40 MEQ PO ×2 (13:20→18:03)
--- NOTE | 2021-02-04 15:44 | PM.PN.1 ---
Subjective Subjective Date Patient Seen: 02/04/21 Time Patient Seen: 15:44 Interval history: This is a 60-year-old male with a history of metastatic cholangiocarcinoma who is admitted with acute respiratory failure secondary to COVID-19. His oxygen requirement has increased slightly to 6L today but he is in no distress. He denies nausea or vomiting. Feels unchanged since yesterday. Cough was productive and sputum was sent for culture which is growing GNB today, ceftriaxone was added. Exam Vital Signs (past 8 hours): - 02/04/21 08:00 02/04/21 08:57 02/04/21 09:34 Temperature 98.5 F Pulse Rate 93 H Respiratory Rate 20 20 Blood Pressure 124/74 Pulse Oximetry 88 L 91 90 L 02/04/21 12:12 Temperature 98.5 F Pulse Rate 74 Respiratory Rate 18 Blood Pressure 110/81 Pulse Oximetry 93 Oxygen Delivery Method Nasal Cannula Oxygen Flow Rate 6 Narrative Exam Narrative: Gen: Alert, oriented, cachectic and ill appearing 60 y.o. male, on a nasal cannula HEENT: normocephalic, atraumatic, conjunctiva clear, sclera non-icteric, oral mucosa pink and moist Neck: supple, full ROM, no JVD, trachea is midline Resp: coarse breath sounds bilaterally, no wheezing bilaterally. Chest: Portacath in place on right upper chest, no erythema or induration. CV: bradycardic with regular rhythm, no m/r/g. Abd: soft, non-tender, normoactive BTs Skin: bilateral hand ecchymoses, and possible purplish purpura though just on the dorsum of hands for now. No other rashes noted. Neuro: Alert and oriented X 4 w/no focal deficits. Speech clear and coherent. Extremities: moves all 4 extremities, is ambulatory, negative Yajaira?s sign Psyche: normal mood and affect. Objective Labs Result Diagrams: 02/04/21 05:35 02/04/21 05:35 Labs: Laboratory Results - last 24 hr 02/04/21 02/04/21 02/04/21 05:35 05:35 05:35 WBC 2.3 L RBC 2.58 L Hgb 8.5 L Hct 25.0 L MCV 97.1 MCH 33.1 MCHC 34.0 RDW 19.4 H Plt Count 13 L* Neut % (Auto) 89.0 H Lymph % (Auto) 5.9 L [place] % (Auto) 4.9 Eos % (Auto) 0.0 L Baso % (Auto) 0.2 Neut # (Auto) 2100 Lymph # (Auto) 100 L [place] # (Auto) 100 Eos # (Auto) 0 Baso # (Auto) 0 Platelet Estimate Decreased on smear RBC Morphology See below Anisocytosis 1+ H Macrocytosis 1+ H Sodium 135 L Potassium 2.8 L Chloride 109 H Carbon Dioxide 23 BUN 18 Creatinine 0.43 L Estimated GFR > 60.0 BUN/Creatinine Ratio 41.9 H Glucose 204 H Hemoglobin A1c 6.6 H Calcium 7.6 L Magnesium 2.0 Total Bilirubin 0.7 AST 21 ALT 15 Alkaline Phosphatase 96 Total Protein 5.1 L Albumin 1.9 L Globulin 3.2 Albumin/Globulin Ratio 0.6 L PFSH Medical History Cholangiocarcinoma COVID-19 vaccine series completed Ogjmt-Omyrrmlue-Oxjbi syndrome Surgical History History of Whipple procedure Midline sternotomy scar Family History Mother CVA (cerebral vascular accident) Father Lung cancer Social History household members: spouse and family Smoking Status: Former smoker Assessment & Plan Assessment & Plan narrative: Candi Dai is admitted to the inpatient service for further treatment of his hypoxia associated with a breakthrough COVID-19 associated hypoxia. 1. COVID-19 and superimposed gram negative bacterial pneumonia, and acute respiratory failure with hypoxia. - patient was vaccinated. - continue remdesevir and decadron, today is day 4 of therapy. - supportive care with pain control, fever suppression, and oxygen to maintain O2 >90% while on supplemental therapy. - currently on 6L via [place]. - sputum cultures with GNB, ceftriaxone added in addition to azithro. Narrow once sensitivities result. 2. Pancytopenia with recent right femoral DVT diagnosed 3 weeks ago and present on admission, also with prior history of ITP and chronic thrombocytopenia. Pancytopenia likely secondary to chemotherapy, possible COVID is contributing as well. -Patient was self administering enoxaparin 120 mg daily which is held currently. - platelet count is 26 on admission compared to 63 in July 2020. Also has ? ITP based on oncology note that is scanned, though he does not appear to have any chronic medications related to ITP. - platelet martín yesterday of 12, improved slightly today to 13. -Recommendation is when his platelet count increases to over 50, he can resume his anticoagulation with enoxaparin. Consulted with Dr. Goldsmith, Oncologist at [facility]. -have sent a HIT antibody given thrombosis and apparent worsening of thrombocytopenia and recent initiation of Lovenox. 4T score of 4, however vague presentation and alternative cause could be his acute infection or recent chemo which is more likely. -transfuse for Plt <10, <50 if bleeding develops. No current signs of active bleeding. 3. Severe hypokalemia, likely in the setting of persistent diarrhea, present on admission Potassium is 2.1 on admission, improved with repletion to 3.0 though dipped again today. Will continue to follow and replete as necessary. 4. History of atrial fibrillation, unknown if currently present somewhat bradycardic initially improved with holding home beta mara for now. Also with soft BP still. 5. Cholangiocarcinoma, s/p whipple procedure - continue creon - has mets to lung based on oncology note from 6 months ago. Chemo was last done on Thursday 01/25 per patient. 6. Diabetes, new diagnosis - A1c 6.6%, glucose elevated recently in setting of decadron therapy for COVID. Recommend dietary changes as an outpatient. - started on sliding scale insulin therapy, AM glucose 200, will add 5 units of long acting this evening. VTE prophylaxis: SCDs, can resume lovenox as noted above when thrombocytopenia improves. Dispo: likely discharge home, timing uncertain currently. Code Status: Full code, as discussed with patient who names his spouse, Adri as surrogate and POA COVID-19 COVID-19 status: Positive Result date/Date tested (Pos, Neg/Pending): 02/01/21 Quality VTE Deep Vein Thrombosis/Pulmonary Embolism Present on Admission: Yes
--- NOTE | 2021-02-04 18:14 | PC.NURSE ---
Pt unable to maintain SpO2 < 76-78% on 6L O2 When @ rest sat may go to 83% RT notified, Pt moved to ICU for increased O2 needs. Placed on non-rebreather by RT SpO2 95% Pt alert/oriented Report given to [employer] Radha. Call light w/in reach, bed alarm on for pt safety.
[2021-02-04] MEDS: AZITHROMYCIN 500 MG in DEXTROSE 5% IN WATER 250 ML IV (20:18)
[2021-02-04] MEDS: REMDESIVIR 100 MG in SODIUM CHLORIDE 0.9% 230 ML 250 ML IV (20:19)
[2021-02-04] MEDS: INSULIN GLARGINE 100 UNIT/ML 3ML PEN SUBCUT (21:13)
[2021-02-04] MEDS: ONDANSETRON 4 MG/2 ML INJ IV (22:27)
[2021-02-05] VITALS (21 sets, daily range): BP systolic 101–139; BP diastolic 58–81; PULSE 58–100; RESP 13–26; TEMP 36.7–37.4; O2SAT 90–99
[2021-02-05] MEDS: FUROSEMIDE 20 MG/2 ML VIAL IV (04:32)
[2021-02-05 05:43] LABS: Add Manual Diff / Slide Review NO; Basophils Absolute Auto 0 /uL (0-100); Basophils Percent Auto 0.3 % (0-2); Eosinophils Absolute Auto 0 /uL (0-450); Hemoglobin 7.9 g/dL (13.5-17.5); Lymphocytes Absolute Auto 200 /uL (1100-4500); Lymphocytes Percent Auto 7.2 % (25-40); Mean Corpuscular HGB Conc 33.7 % (30-36); Mean Corpuscular Hemoglobin 32.6 PG (26-34); Mean Corpuscular Volume 96.8 fL (80-100); Monocytes Absolute Auto 100 /uL (0-900); Monocytes Percent Auto 5.2 % (3-14); Neutrophils Absolute Auto 2000 /uL (1500-7000); Neutrophils Percent Auto 87.3 % (50-75); Red Blood Cell Count 2.42 X10^6/uL (4.5-5.9); Red Cell Distribution Width 19.4 % (11.6-14.8); White Blood Cell Count 2.3 X10^3/uL (4.5-11.0)
[2021-02-05 05:45] LABS: Hematocrit 23.4 % (41-53)
[2021-02-05 05:46] LABS: Platelet Count 18 X10^3/uL (150-400)
[2021-02-05 05:51] LABS: Alanine Aminotransferase 15 IU/L (<50); Albumin 1.9 g/dL (3.5-5.0); Albumin Globulin Ratio 0.7 (1.0-2.8); Alkaline Phosphatase 96 U/L (38-126); Aspartate Aminotransferase 24 IU/L (17-59); BUN Creatinine Ratio 41.5 (6-22); Bilirubin Total 0.8 mg/dL (0.2-1.3); Blood Urea Nitrogen 22 mg/dL (9-20); Calcium 7.8 mg/dL (8.4-10.2); Carbon Dioxide 22 mmol/L (22-32); Chloride 110 mmol/L (98-107); Estimated Glomerular Filt Rate > 60.0 mL/min (>60); Globulin 2.9 g/dL (1.7-4.1); Glucose 171 mg/dL (70-100); HEMOLYSIS < 15 (0-50); Potassium 3.2 mmol/L (3.4-5.1); Sodium 135 mmol/L (137-145); Total Protein 4.8 g/dL (6.3-8.2)
[2021-02-05 06:22] LABS: Platelet Estimate Decreased on smear
[2021-02-05 06:23] LABS: Anisocytosis 1+; Macrocytosis 1+
--- NOTE | 2021-02-05 07:00 | DI.RAD.S_ITS ---
PROCEDURE: XR CHEST 1V INDICATIONS: suspect volume overload TECHNIQUE: One view of the chest was acquired. COMPARISON: [facility], CR, XR CHEST 1V, 02/01/2021, 20:06. FINDINGS: Surgical changes and devices: Right internal jugular catheter appears similar in position with the tip in the region of the cavoatrial junction. Postsurgical changes are redemonstrated in the mediastinum. An epicardial lead is again noted in the left upper quadrant. Lungs and pleura: There are decreased but persistent perihilar confluent opacities. No pleural effusions or pneumothorax. Mediastinum: Mediastinal contours appear unchanged. Heart size is normal. Bones and chest wall: No suspicious bony lesions. Overlying soft tissues appear unremarkable. IMPRESSION: 1. Decreased but persistent confluent perihilar opacities with indistinct margins. The findings are suggestive of pneumonia, but the differential includes pulmonary edema. Dictated by: Ghanshyam Morales M.D. on 02/08/2021 at 14:00 Approved by: Ghanshyam Morales M.D. on 02/08/2021 at 14:10
--- NOTE | 2021-02-05 07:19 | PC.NURSE ---
Director Of Midwifery/Staff Midwife Note-Patient on HHFNC starting at 45L/45% FIO2, but requiring increase to 50L/60% overnight to keep SpO2 >90%, RR 20, lung sounds coarse throughout. Notified Tawana DELAROSA, 20mg IV Lasix given, CXR done. Continues to have loose stools, denies pain or dyspnea.
[2021-02-05] MEDS: FLUCONAZOLE 100 MG TABLET 200 MG PO (08:41)
[2021-02-05] MEDS: DEXAMETHASONE 10 MG/ML VIAL 6 MG IV (08:41)
[2021-02-05] MEDS: POTASSIUM CHLORIDE 20 MEQ TAB 40 MEQ PO ×2 (08:41→17:44)
[2021-02-05] MEDS: INSULIN LISPRO 100 UNIT/ML 3ML VIAL SUBCUT ×4 (08:42→22:15)
[2021-02-05] MEDS: LIPASE PROTEASE AMYLASE 2 EACH PO ×3 (08:42→17:44)
[2021-02-05] MEDS: SODIUM CHLORIDE 0.9% FLUSH 10 ML IV ×2 (08:42→20:02)
--- NOTE | 2021-02-05 10:04 | PC.NURSE ---
Addendum entered by Maria Esther Lewis R.N. 02/05/21 14:51: Patient desats to 88-90% on 50L 55%FIO2, Dr Hidalgo in to discuss treatment plan with patient, patient confirms full code status and desire to be intubated if patients respiratory status were to decline. RT in to assess, patient agreeable to prone. Patient assisted to proning position. Sats up to 99-100% on 50L 50% FIO2. Patient tearful and expresses fear of dying, support given. Call light in reach. Original Note: Patient up to bsc had 500cc urine and liquid stool mix, barrier. Patient then assisted to chair, sats 93-94% on 50L 56% FIO2, denies dyspnea, non productive intermittent cough. Patient denies pain.
[2021-02-05] MEDS: guaiFENesin ER 600 MG TAB 1200 MG PO ×2 (11:45→22:13)
[2021-02-05] MEDS: cefTRIAXone 1,000 MG in SODIUM CHLORIDE 0.9% 100 ML 200 ML IV (11:49)
[2021-02-05 13:19] LABS: Clostridium Difficile Tox PCR Negative for C. diff (Negative)
[2021-02-05] MEDS: LOPERAMIDE 2 MG CAPSULE PO (14:22)
--- NOTE | 2021-02-05 14:29 | PM.PN.1 ---
Subjective Subjective Date Patient Seen: 02/05/21 Time Patient Seen: 14:30 Interval history: This is a 60-year-old male with a history of metastatic cholangiocarcinoma who is admitted with acute respiratory failure secondary to COVID-19. His oxygen requirement has increased again to now requiring heated high flow nasal cannula at 50L at 55%. He denies nausea or vomiting. Feels unchanged since yesterday. Sputum growing a sensitive klebsiella. Remains on antibiotics. CXR today unchanged. Did discuss that if he progresses to needing more oxygen what he would want to do if it looks like he would need to be intubated, he states he would want to be intubated. Was advised there was a high likelihood if he were to need intubation he has at best a 50% chance of coming off the ventilator. Exam Vital Signs (past 8 hours): - 02/05/21 08:00 02/05/21 08:54 02/05/21 10:03 Temperature 98.4 F Pulse Rate 78 100 H 80 Respiratory Rate 16 20 Blood Pressure 122/79 Pulse Oximetry 93 90 L 93 02/05/21 10:15 02/05/21 11:34 02/05/21 11:59 Temperature Pulse Rate 95 H Respiratory Rate 22 Blood Pressure Pulse Oximetry 96 92 93 02/05/21 12:00 02/05/21 13:09 Temperature 98.1 F Pulse Rate 96 H 74 Respiratory Rate 19 17 Blood Pressure 110/67 Pulse Oximetry 99 94 Fraction of Inspired Oxygen 55 Oxygen Delivery Method High Flow Nasal Cannula Oxygen Flow Rate 50 Narrative Exam Narrative: : Gen: Alert, oriented, cachectic and ill appearing 60 y.o. male, on high flow nasal cannula HEENT: normocephalic, atraumatic, conjunctiva clear, sclera non-icteric, oral mucosa pink and moist Neck: supple, full ROM, no JVD, trachea is midline Resp: coarse breath sounds bilaterally, no wheezing bilaterally. shallow breaths Chest: Portacath in place on right upper chest, no erythema or induration. CV: bradycardic with regular rhythm, no m/r/g. Abd: soft, non-tender, normoactive BTs Skin: bilateral hand ecchymoses, and possible purplish purpura though just on the dorsum of hands for now. No other rashes noted. Neuro: Alert and oriented X 4 w/no focal deficits. Speech clear and coherent. Extremities: moves all 4 extremities, is ambulatory, negative Yajaira?s sign Psyche: normal mood and affect. Objective Labs Result Diagrams: 02/05/21 05:00 02/05/21 05:00 Labs: Laboratory Results - last 24 hr 02/04/21 02/05/21 02/05/21 18:00 05:00 05:00 WBC 2.3 L RBC 2.42 L Hgb 7.9 L Hct 23.4 L MCV 96.8 MCH 32.6 MCHC 33.7 RDW 19.4 H Plt Count 18 L* Neut % (Auto) 87.3 H Lymph % (Auto) 7.2 L [place] % (Auto) 5.2 Eos % (Auto) 0.0 L Baso % (Auto) 0.3 Neut # (Auto) 2000 Lymph # (Auto) 200 L [place] # (Auto) 100 Eos # (Auto) 0 Baso # (Auto) 0 Platelet Estimate Decreased on smear RBC Morphology See below Anisocytosis 1+ H Macrocytosis 1+ H Sodium 135 L Potassium 3.2 L Chloride 110 H Carbon Dioxide 22 BUN 22 H Creatinine 0.53 L Estimated GFR > 60.0 BUN/Creatinine Ratio 41.5 H Glucose 171 H Calcium 7.8 L Magnesium 2.0 Total Bilirubin 0.8 AST 24 ALT 15 Alkaline Phosphatase 96 Total Protein 4.8 L Albumin 1.9 L Globulin 2.9 Albumin/Globulin Ratio 0.7 L Nasal Screen MRSA (PCR) Negative for mrsa C. difficile Tox (PCR) 02/05/21 12:30 WBC RBC Hgb Hct MCV MCH MCHC RDW Plt Count Neut % (Auto) Lymph % (Auto) [place] % (Auto) Eos % (Auto) Baso % (Auto) Neut # (Auto) Lymph # (Auto) [place] # (Auto) Eos # (Auto) Baso # (Auto) Platelet Estimate RBC Morphology Anisocytosis Macrocytosis Sodium Potassium Chloride Carbon Dioxide BUN Creatinine Estimated GFR BUN/Creatinine Ratio Glucose Calcium Magnesium Total Bilirubin AST ALT Alkaline Phosphatase Total Protein Albumin Globulin Albumin/Globulin Ratio Nasal Screen MRSA (PCR) C. difficile Tox (PCR) Negative for c. diff PFSH Medical History Cholangiocarcinoma COVID-19 vaccine series completed Zncst-Tyhydxnoa-Qpbrr syndrome Surgical History History of Whipple procedure Midline sternotomy scar Family History Mother CVA (cerebral vascular accident) Father Lung cancer Social History household members: spouse and family Smoking Status: Former smoker Assessment & Plan Assessment & Plan narrative: Candi Dai is admitted with acute respiratory failure secondary to COVID 19 pneumonia and superimposed klebsiella bacterial pneumonia. 1. COVID-19 and superimposed klebsiella, and acute respiratory failure with hypoxia. - patient was vaccinated. - continue remdesevir and decadron, today is day 5 of therapy. - supportive care with pain control, fever suppression, and oxygen to maintain O2 >90% while on supplemental therapy. - currently on 6L via [place]. - sputum cultures with klebsiella, ceftriaxone added in addition to azithro. Continue ceftriaxone and will complete azithro course as well. 2. Pancytopenia with recent right femoral DVT diagnosed 3 weeks ago and present on admission, also with prior history of ITP and chronic thrombocytopenia. Pancytopenia likely secondary to chemotherapy, possible COVID is contributing as well. -Patient was self administering enoxaparin 120 mg daily which is held currently. - platelet count is 26 on admission compared to 63 in July 2020. Also has ? ITP based on oncology note that is scanned, though he does not appear to have any chronic medications related to ITP. - platelet martín yesterday of 12, improved slightly today to 18. -Recommendation is when his platelet count increases to over 50, he can resume his anticoagulation with enoxaparin. Consulted with Dr. Goldsmith, Oncologist at [facility]. -have sent a HIT antibody given thrombosis and apparent worsening of thrombocytopenia and recent initiation of Lovenox. 4T score of 4, however vague presentation and alternative cause could be his acute infection or recent chemo which is more likely. -transfuse for Plt <10, <50 if bleeding develops. No current signs of active bleeding. 3. Severe hypokalemia, likely in the setting of persistent diarrhea, present on admission Potassium is 2.1 on admission, now up to 3.2. Will continue to follow and replete as necessary. 4. History of atrial fibrillation, unknown if currently present somewhat bradycardic initially improved with holding home beta mara for now. Also with soft BP still. 5. Cholangiocarcinoma, s/p whipple procedure - continue creon - has mets to lung based on oncology note from 6 months ago. Chemo was last done on Thursday 01/25 per patient. - Continued diarrhea today, C. diff negative, will add loperamide to try and slow transit time. 6. Diabetes, new diagnosis - A1c 6.6%, glucose elevated recently in setting of decadron therapy for COVID. Recommend dietary changes as an outpatient. - started on sliding scale insulin therapy, AM glucose 171, will continue 5 units of long acting this evening. VTE prophylaxis: SCDs, can resume lovenox as noted above when thrombocytopenia improves. Dispo: unclear discharge given progression, if improvement possible need for rehab given severity of infection, if worsened he may need transfer. Code Status: Full code, as discussed with patient who names his spouse, Adri as surrogate and POA COVID-19 COVID-19 status: Positive Result date/Date tested (Pos, Neg/Pending): 02/01/21 Quality VTE Deep Vein Thrombosis/Pulmonary Embolism Present on Admission: Yes
[2021-02-05] MEDS: OXYCODONE IR 5 MG TABLET PO (16:43)
--- NOTE | 2021-02-05 18:50 | PC.NURSE ---
Assumed care of Pt @ 1500, proning, but c/o significant pain to Chest, portacath and generalized. Tearful, Voices fear of intubation. Discussed the importance of proning as well as side laying if able. Medicated with oxycodone for pain control. Unable to tolerate proning for very long, but agreeable to attempt later this shift. Up to chair for meal, using waffle pad for
[2021-02-05] MEDS: REMDESIVIR 100 MG in SODIUM CHLORIDE 0.9% 230 ML 250 ML IV (20:01)
[2021-02-05] MEDS: AZITHROMYCIN 500 MG in DEXTROSE 5% IN WATER 250 ML IV (22:12)
[2021-02-05] MEDS: INSULIN GLARGINE 100 UNIT/ML 3ML PEN 8 UNIT SUBCUT (22:14)
[2021-02-06] VITALS (17 sets, daily range): BP systolic 96–119; BP diastolic 54–68; PULSE 57–82; RESP 11–26; TEMP 36.2–37.1; O2SAT 87–98
--- NOTE | 2021-02-06 06:28 | PC.NURSE ---
Addendum entered by Arcelia Trammell R.N. 02/09/21 01:32: Time clarification: 7pm to 7am. 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 He is not tachypneic or c/o distress, minimal cough, lung sounds intermittently coarse with crackles bases.
[2021-02-06] MEDS: POTASSIUM CHLORIDE 20 MEQ TAB 40 MEQ PO ×2 (10:22→15:20)
[2021-02-06] MEDS: DEXAMETHASONE 10 MG/ML VIAL 6 MG IV (10:22)
[2021-02-06] MEDS: guaiFENesin ER 600 MG TAB 1200 MG PO ×2 (10:23→20:20)
[2021-02-06] MEDS: FLUCONAZOLE 100 MG TABLET 200 MG PO (10:23)
[2021-02-06] MEDS: LIPASE PROTEASE AMYLASE 2 EACH PO (10:25)
--- NOTE | 2021-02-06 13:10 | PC.NURSE ---
Am shift Pt was able to prone overnight and seems to have good spirits this AM. Up to BSC, reports no SOB, and there is no change to WOB. Pt appears relaxed, with HHFNC. Sticker pulse ox placed, Spo2 99% 50L 65%Fio2 Pt is unable to prone for long periods due to discomfort. Pt will turn to L side on own, and this dislodges his HHFNC, reminded to leave in place and prone as much as he is able. Refused lunch, reports no pain and is resting comfortably at this time. Ubaldo aguilar and BROWN.
--- NOTE | 2021-02-06 13:28 | DIET.PN ---
Dietary Progress Note RD Note: RD consulted for low asrahi score. Pts POs have been 10-50% past few days now that pt is on heated high flow oxygen. Kitchen sending up Ensure Max c lunches but will add ONS glucerna bid and modify pts diet to easy chew to reduce work of chewing. Monitoring POs
[2021-02-06 13:42] LABS: Add Manual Diff / Slide Review NO; Basophils Absolute Auto 0 /uL (0-100); Basophils Percent Auto 0.2 % (0-2); Eosinophils Absolute Auto 0 /uL (0-450); Hematocrit 23.1 % (41-53); Hemoglobin 7.7 g/dL (13.5-17.5); Lymphocytes Absolute Auto 100 /uL (1100-4500); Lymphocytes Percent Auto 5.3 % (25-40); Mean Corpuscular HGB Conc 33.6 % (30-36); Mean Corpuscular Hemoglobin 32.6 PG (26-34); Mean Corpuscular Volume 97.1 fL (80-100); Monocytes Absolute Auto 100 /uL (0-900); Monocytes Percent Auto 6.1 % (3-14); Neutrophils Absolute Auto 2100 /uL (1500-7000); Neutrophils Percent Auto 88.4 % (50-75); Red Blood Cell Count 2.37 X10^6/uL (4.5-5.9); Red Cell Distribution Width 19.6 % (11.6-14.8); White Blood Cell Count 2.4 X10^3/uL (4.5-11.0)
[2021-02-06 13:44] LABS: Platelet Count 25 X10^3/uL (150-400)
[2021-02-06 13:48] LABS: Alanine Aminotransferase 15 IU/L (<50); Albumin 1.8 g/dL (3.5-5.0); Albumin Globulin Ratio 0.6 (1.0-2.8); Alkaline Phosphatase 101 U/L (38-126); Aspartate Aminotransferase 28 IU/L (17-59); BUN Creatinine Ratio 48.9 (6-22); Blood Urea Nitrogen 23 mg/dL (9-20); Calcium 7.6 mg/dL (8.4-10.2); Carbon Dioxide 22 mmol/L (22-32); Chloride 110 mmol/L (98-107); Estimated Glomerular Filt Rate > 60.0 mL/min (>60); Glucose 156 mg/dL (70-100); HEMOLYSIS < 15 (0-50); Potassium 3.4 mmol/L (3.4-5.1); Sodium 134 mmol/L (137-145); Total Protein 4.8 g/dL (6.3-8.2)
[2021-02-06 14:25] LABS: Anisocytosis 1+; Platelet Estimate Decreased on smear
--- NOTE | 2021-02-06 14:26 | P.PN_ITS ---
Subjective Subjective Date Patient Seen: 02/06/21 Time Patient Seen: 14:26 Interval history: This is a 60-year-old male with a history of metastatic cholangiocarcinoma who is admitted with acute respiratory failure secondary to COVID-19. He is now on heated high flow at 65% and 50L. He denies nausea or vomiting. Feels unchanged since yesterday. Sputum growing a sensitive klebsiella. Remains on antibiotics. He was able to prone yesterday, O2 sats definitely improve with proning. Exam Vital Signs (past 8 hours): - 02/06/21 09:00 02/06/21 09:50 02/06/21 11:51 Temperature 97.1 F L 98.1 F Pulse Rate 68 70 Respiratory Rate 17 20 11 L Blood Pressure 113/67 119/67 Pulse Oximetry 98 92 96 Fraction of Inspired Oxygen 56 Oxygen Delivery Method Heated High Flow Oxygen Flow Rate 50 Narrative Exam Narrative: Gen: Alert, oriented, cachectic and ill appearing 60 y.o. Caucas anneliese male, on high flow nasal cannula HEENT: normocephalic, atraumatic, conjunctiva clear, sclera non-icteric, oral mucosa pink and moist Neck: supple, full ROM, no JVD, trachea is midline Resp: coarse breath sounds bilaterally, no wheezing bilaterally. shallow breaths Chest: Portacath in place on right upper chest, no erythema or induration. CV: bradycardic with regular rhythm, no m/r/g. Abd: soft, non-tender, normoactive BTs Skin: bilateral hand ecchymoses, and possible purplish purpura though just on the dorsum of hands for now. No other rashes noted. Neuro: Alert and oriented X 4 w/no focal deficits. Speech clear and coherent. Extremities: moves all 4 extremities, is ambulatory, negative Yajaira?s sign Psyche: normal mood and affect. Objective Labs Result Diagrams: 02/06/21 13:28 02/06/21 13:28 Labs: Laboratory Results - last 24 hr 02/06/21 02/06/21 13:28 13:28 WBC 2.4 L RBC 2.37 L Hgb 7.7 L Hct 23.1 L MCV 97.1 MCH 32.6 MCHC 33.6 RDW 19.6 H Plt Count 25 L* Neut % (Auto) 88.4 H Lymph % (Auto) 5.3 L [place] % (Auto) 6.1 Eos % (Auto) 0.0 L Baso % (Auto) 0.2 Neut # (Auto) 2100 Lymph # (Auto) 100 L [place] # (Auto) 100 Eos # (Auto) 0 Baso # (Auto) 0 Platelet Estimate Decreased on smear RBC Morphology See below Anisocytosis 1+ H Sodium 134 L Potassium 3.4 Chloride 110 H Carbon Dioxide 22 BUN 23 H Creatinine 0.47 L Estimated GFR > 60.0 BUN/Creatinine Ratio 48.9 H Glucose 156 H Calcium 7.6 L Total Bilirubin 1.0 AST 28 ALT 15 Alkaline Phosphatase 101 Total Protein 4.8 L Albumin 1.8 L Globulin 3.0 Albumin/Globulin Ratio 0.6 L PFSH Medical History Cholangiocarcinoma COVID-19 vaccine series completed Wqxcr-Mgemjlqqk-Wmuic syndrome Surgical History History of Whipple procedure Midline sternotomy scar Family History Mother CVA (cerebral vascular accident) Father Lung cancer Social History household members: spouse and family Smoking Status: Former smoker Assessment & Plan Assessment & Plan narrative: Candi Dai is admitted with acute respiratory failure secondary to COVID 19 pneumonia and superimposed klebsiella bacterial pneumonia. 1. COVID-19 and superimposed klebsiella, and acute respiratory failure with hypoxia. - patient was vaccinated. - continue remdesevir and decadron, today is day 6 of therapy. - supportive care with pain control, fever suppression, and oxygen to maintain O2 >90% while on supplemental therapy. - currently on heated high flow. He is full code and would like intubation. - sputum cultures with klebsiella, ceftriaxone added in addition to azithro. Continue ceftriaxone (day 3/5) and now completed 3 days of azithro as well. - have ordered baricitinib, a janus kinase inhibitor, currently has an EUA for treatment of severe COVID. This is non-formulary and pharmacy is looking into it. 2. Pancytopenia with recent right femoral DVT diagnosed 3 weeks ago and present on admission, also with prior history of ITP and chronic thrombocytopenia. Pancytopenia likely secondary to chemotherapy, possible COVID is contributing as well. -Patient was self administering enoxaparin 120 mg daily which is held currently. - platelet count is 26 on admission compared to 63 in July 2020. Also has ? ITP based on oncology note that is scanned, though he does not appear to have any chronic medications related to ITP. - platelet martín of 12, improving slowly to 25 today. -Recommendation is when his platelet count increases to over 50, he can resume his anticoagulation with enoxaparin. Consulted with Dr. Goldsmith, Oncologist at [facility]. -have sent a HIT antibody given thrombosis and apparent worsening of thrombocytopenia and recent initiation of Lovenox. 4T score of 4, however vague presentation and alternative cause could be his acute infection or recent chemo which is more likely. -transfuse for Plt <10, <50 if bleeding develops. No current signs of active bleeding. 3. Severe hypokalemia, likely in the setting of persistent diarrhea, present on admission Potassium is 2.1 on admission, now up to 3.2. Will continue to follow and replete as necessary. 4. History of atrial fibrillation, unknown if currently present somewhat bradycardic initially improved with holding home beta mara for now. Also with soft BP still. 5. Cholangiocarcinoma, s/p whipple procedure - continue creon - has mets to lung based on oncology note from 6 months ago. Chemo was last done on Thursday 01/25 per patient. - Continued diarrhea today, C. diff negative, will add loperamide to try and slow transit time. 6. Diabetes, new diagnosis - A1c 6.6%, glucose elevated recently in setting of decadron therapy for COVID. Recommend dietary changes as an outpatient. - started on sliding scale insulin therapy, AM glucose 171, will continue 5 units of long acting this evening. VTE prophylaxis: SCDs, can resume lovenox as noted above when thrombocytopenia improves. Dispo: unclear discharge given progression, if improvement possible need for rehab given severity of infection, if worsened he may need transfer. Code Status: Full code, as discussed with patient who names his spouse, Adri as surrogate and POA COVID-19 COVID-19 status: Positive Result date/Date tested (Pos, Neg/Pending): 02/01/21 Quality VTE Deep Vein Thrombosis/Pulmonary Embolism Present on Admission: Yes
[2021-02-06] MEDS: cefTRIAXone 1,000 MG in SODIUM CHLORIDE 0.9% 100 ML 200 ML IV (15:18)
[2021-02-06] MEDS: INSULIN LISPRO 100 UNIT/ML 3ML VIAL SUBCUT ×2 (17:19→20:22)
[2021-02-06] MEDS: LIPASE PROTEASE AMYLASE 1 EACH PO ×2 (17:25)
[2021-02-06] MEDS: SODIUM CHLORIDE 0.9% FLUSH 10 ML IV ×2 (17:26→20:25)
[2021-02-06] MEDS: SODIUM CHLORIDE 0.9% 250 ML 21 ML IV (17:54)
--- NOTE | 2021-02-06 18:41 | DIET.PN ---
Dietary Progress Note Assessment: 60y M admitted to 5d ago for cough, found to be Covid+ despite full vaccination referred to nutrition for suspected protein calorie malnutrition. Pt med hx includes currently being treated for metastatic cholangiocarcinoma at outside facility. Pt is on heated high flow oxygen 65% at 50L. Pts POs this hospital stay have been 25-50%. Pt started on ONS Ensure Max on LOS day 1 to support protein needs in low-carb formula for ease of breathing but POs remained low. Today, ONS Glucerna bid was added as well as easy chew consistent carb diet to reduce fatigue from eating. Per chart review pt has a healthy BMI of 24.2 and UBW of 75.7kg as of 07/2020 indicating 9.4% unintentional weight loss in the past 6 months (moderate malnutrition). Pt transferred to ICU for heated high flow O2 forecasting continued difficulty attaining adequate PO and ongoing risk of further unintentional weight loss. HT: 167.6cm WT: 68kg (-9.4% in 6mo, moderate malnutrition) UBW: 75.7kg BMI: 24.2 Labs: WBC 2.4 L, hgb 7.7 L, Cr 0.47 L, BG 156-171 H, alb 1.8 L Nutrition Diagnosis: Acute on Chronic Moderate Malnutrition r/t difficulty eating and cholangiocarcinoma aeb 9.4% unintentional weight loss in 6mo, POs <50% x5d, active Covid19 pneumonia requiring heated high flow oxygen 65% at 50L. Interventions: 1. Recc continuing easy chew CCD to encourage intake of meal trays. 2. Continue ONS Ensure Max and Glucerna providing 35% kcal needs and 50% protein needs in addition to meal trays, encourage sips of ONS between meals as snacks. Diet Order: CCD easy chew EER: 2,000kcal (30kcal/kg per malnutrition), 95g PRO (1.4g/kg per malnutrition) Monitoring/Evaluations: POs
[2021-02-06] MEDS: REMDESIVIR 100 MG in SODIUM CHLORIDE 0.9% 230 ML 250 ML IV (19:23)
[2021-02-06] MEDS: INSULIN GLARGINE 100 UNIT/ML 3ML PEN 8 UNIT SUBCUT (20:21)
[2021-02-07] VITALS (13 sets, daily range): BP systolic 104–149; BP diastolic 57–80; PULSE 55–84; RESP 16–93; TEMP 36.3–36.7; O2SAT 92–98
[2021-02-07] MEDS: OXYCODONE IR 10 MG TABLET PO ×2 (00:30→07:53)
--- NOTE | 2021-02-07 03:46 | PC.NURSE ---
Notified ISAURA Trevino notified that pt. had a transient 9 run V tach.
[2021-02-07 05:46] LABS: Add Manual Diff / Slide Review NO; Basophils Absolute Auto 0 /uL (0-100); Basophils Percent Auto 0.5 % (0-2); Eosinophils Absolute Auto 0 /uL (0-450); Hematocrit 25.4 % (41-53); Hemoglobin 8.6 g/dL (13.5-17.5); Lymphocytes Absolute Auto 200 /uL (1100-4500); Lymphocytes Percent Auto 5.4 % (25-40); Mean Corpuscular HGB Conc 33.8 % (30-36); Mean Corpuscular Hemoglobin 33.1 PG (26-34); Mean Corpuscular Volume 97.9 fL (80-100); Monocytes Absolute Auto 200 /uL (0-900); Monocytes Percent Auto 6.5 % (3-14); Neutrophils Absolute Auto 3200 /uL (1500-7000); Neutrophils Percent Auto 87.6 % (50-75); Red Cell Distribution Width 20.1 % (11.6-14.8); White Blood Cell Count 3.7 X10^3/uL (4.5-11.0)
[2021-02-07 05:50] LABS: Platelet Count 33 X10^3/uL (150-400)
[2021-02-07 05:54] LABS: Alanine Aminotransferase 17 IU/L (<50); Albumin Globulin Ratio 0.6 (1.0-2.8); Alkaline Phosphatase 114 U/L (38-126); Aspartate Aminotransferase 33 IU/L (17-59); BUN Creatinine Ratio 45.1 (6-22); Bilirubin Total 0.9 mg/dL (0.2-1.3); Blood Urea Nitrogen 23 mg/dL (9-20); Calcium 7.6 mg/dL (8.4-10.2); Carbon Dioxide 23 mmol/L (22-32); Chloride 110 mmol/L (98-107); Estimated Glomerular Filt Rate > 60.0 mL/min (>60); Globulin 3.2 g/dL (1.7-4.1); Glucose 145 mg/dL (70-100); HEMOLYSIS < 15 (0-50); Potassium 4.1 mmol/L (3.4-5.1); Sodium 136 mmol/L (137-145); Total Protein 5.2 g/dL (6.3-8.2)
[2021-02-07 06:15] LABS: Platelet Estimate Decreased on smear
[2021-02-07 06:16] LABS: Anisocytosis 2+
[2021-02-07 06:17] LABS: Poikilocytosis 1+
[2021-02-07] MEDS: guaiFENesin ER 600 MG TAB 1200 MG PO ×2 (07:53→20:16)
[2021-02-07] MEDS: FLUCONAZOLE 100 MG TABLET 200 MG PO (07:53)
[2021-02-07] MEDS: LOPERAMIDE 2 MG CAPSULE PO (07:54)
[2021-02-07] MEDS: LIPASE PROTEASE AMYLASE 1 EACH PO (07:54)
[2021-02-07] MEDS: DEXAMETHASONE 10 MG/ML VIAL 6 MG IV (07:54)
[2021-02-07] MEDS: SODIUM CHLORIDE 0.9% FLUSH 10 ML IV ×2 (07:55→21:22)
[2021-02-07] MEDS: LIPASE PROTEASE AMYLASE 2 EACH PO ×3 (07:55→17:03)
--- NOTE | 2021-02-07 10:16 | PC.NURSE ---
Addendum entered by Neha Bird R.N. 02/07/21 15:06: Duoderm placed to cheeks for protection. Addendum entered by Neha Bird R.N. 02/07/21 15:00: Spo2 99% on 75% Fio2, reduced to 70% Fio2 50L. Sitting upright, WOB is minimal, he reports he is feeling quite well, I think I am getting rested and getting there Continue to encourage proning, Pt is aware of oxycodone, and will request for next proning. CBG are good this shift, improved with long acting addition. Addendum entered by Neha Bird R.N. 02/07/21 14:13: RT has had to increased the Spo2 settings to 75% Fio2 to keep Oxygen sat >92% Original Note: AM shift Pt willing to prone this am, medicated with oxycodone for pain assosciated with proning, and in position @ 0840. Requesting to hold breakfast. Held AM insulin until meal. Remains on 50L and 60% Fio2 HHFNC, lungs are dim, faint crackles to R base, occasional exertional wheeze noted, clears with IS and DB&C. When proning, pt is able to sustain Spo2 98-100%, using this goal/outcome with Patient when he is reluctant to prone. Right chest portacath accessed, and HL at present. Continue with chronic loose stools , immodium given PO. Call light in reach.
[2021-02-07] MEDS: cefTRIAXone 1,000 MG in SODIUM CHLORIDE 0.9% 100 ML 200 ML IV (14:40)
[2021-02-07] MEDS: INSULIN LISPRO 100 UNIT/ML 3ML VIAL SUBCUT ×3 (14:41→20:16)
[2021-02-07] MEDS: SODIUM CHLORIDE 0.9% 250 ML 21 ML IV (16:56)
--- NOTE | 2021-02-07 17:01 | PM.PN.1 ---
Subjective Subjective Interval history: 60-year-old male admitted to the hospital with respiratory failure secondary to COVID pneumonia. Patient continues to be markedly hypoxic requiring heated high-flow of FiO2 of 70% with a oxygen flow rate of 50. Patient has no specific complaints. He has no diarrhea, no significant cough at this time. Exam Vital Signs (past 8 hours): - 02/07/21 12:00 02/07/21 12:01 02/07/21 12:50 Temperature 97.4 F L Pulse Rate 55 L 63 Respiratory Rate 18 20 Blood Pressure 113/57 L 113/57 L Pulse Oximetry 93 92 92 02/07/21 16:00 Temperature 97.7 F Pulse Rate 68 Respiratory Rate 17 Blood Pressure 127/76 Pulse Oximetry 92 Fraction of Inspired Oxygen 70 Oxygen Delivery Method Heated High Flow Oxygen Flow Rate 50 Narrative Exam Narrative: Elderly gentleman lying in bed on high-flow oxygen ill-appearing HENMT Other: Normocephalic atraumatic, extraocular muscles are intact, high-flow oxygen in place Resp Other: Lungs: Decreased breath sounds, Cardio Other: Cardiac exam: Regular rate and rhythm normal S1-S2 GI Other: Abdomen soft nontender nondistended Skin Other: No lesion Extrem Other: No edema Objective Labs Result Diagrams: 02/07/21 05:10 02/07/21 05:10 Labs: Laboratory Results - last 24 hr 02/02/21 02/07/21 02/07/21 06:45 05:10 05:10 WBC 3.7 L D RBC 2.60 L Hgb 8.6 L Hct 25.4 L MCV 97.9 MCH 33.1 MCHC 33.8 RDW 20.1 H Plt Count 33 L* Neut % (Auto) 87.6 H Lymph % (Auto) 5.4 L [place] % (Auto) 6.5 Eos % (Auto) 0.0 L Baso % (Auto) 0.5 Neut # (Auto) 3200 Lymph # (Auto) 200 L [place] # (Auto) 200 Eos # (Auto) 0 Baso # (Auto) 0 Platelet Estimate Decreased on smear RBC Morphology See below Poikilocytosis 1+ H Anisocytosis 2+ H Sodium 136 L Potassium 4.1 Chloride 110 H Carbon Dioxide 23 BUN 23 H Creatinine 0.51 L Estimated GFR > 60.0 BUN/Creatinine Ratio 45.1 H Glucose 145 H Calcium 7.6 L Total Bilirubin 0.9 AST 33 ALT 17 Alkaline Phosphatase 114 Total Protein 5.2 L Albumin 2.0 L Globulin 3.2 Albumin/Globulin Ratio 0.6 L Hep-Induced Plt Ab An 0.123 [facility] Medical History Cholangiocarcinoma COVID-19 vaccine series completed Xkjne-Xpqkehavy-Wctwp syndrome Surgical History History of Whipple procedure Midline sternotomy scar Family History Mother CVA (cerebral vascular accident) Father Lung cancer Social History household members: spouse and family Smoking Status: Former smoker Assessment & Plan Assessment & Plan narrative: COVID-19 and superimposed klebsiella, and acute respiratory failure with hypoxia. - patient was vaccinated. - continue remdesevir and decadron, today is day 6 of therapy. - supportive care with pain control, fever suppression, and oxygen to maintain O2 >90% while on supplemental therapy. - currently on heated high flow. He is full code and would like intubation. - sputum cultures with klebsiella, ceftriaxone added in addition to azithro. Continue ceftriaxone (day 3/5) and now completed 3 days of azithro as well. - have ordered baricitinib, a janus kinase inhibitor, currently has an EUA for treatment of severe COVID. This is non-formulary and pharmacy is looking into it. -barcitinib ordered [place], not available today, but should arrive tomorrow -continue high flow oxygen, proning, dexamethasone, and remdesivir -Consider Bipap- if oxygenation not improved with highflow at 70% 2. Pancytopenia with recent right femoral DVT diagnosed 3 weeks ago and present on admission, also with prior history of ITP and chronic thrombocytopenia. Pancytopenia likely secondary to chemotherapy, possible COVID is contributing as well. -Patient was self administering enoxaparin 120 mg daily which is held currently. - platelet count is 26 on admission compared to 63 in July 2020. Also has ? ITP based on oncology note that is scanned, though he does not appear to have any chronic medications related to ITP. - platelet martín of 12, improving slowly to 25 today. -Recommendation is when his platelet count increases to over 50, he can resume his anticoagulation with enoxaparin. Consulted with Dr. Goldsmith, Oncologist at [facility]. -have sent a HIT antibody given thrombosis and apparent worsening of thrombocytopenia and recent initiation of Lovenox. 4T score of 4, however vague presentation and alternative cause could be his acute infection or recent chemo which is more likely. -transfuse for Plt <10, <50 if bleeding develops. No current signs of active bleeding. -platelet count remains low at 33, no DVT prophylaxis with lovenox at this time 3. Severe hypokalemia, likely in the setting of persistent diarrhea, present on admission Potassium is 2.1 on admission, now up to 3.2. Will continue to follow and replete as necessary. improved 4. History of atrial fibrillation, unknown if currently present somewhat bradycardic initially improved with holding home beta mara for now. Also with soft BP still. 5. Cholangiocarcinoma, s/p whipple procedure - continue creon - has mets to lung based on oncology note from 6 months ago. Chemo was last done on Thursday 01/25 per patient. - Continued diarrhea today, C. diff negative, will add loperamide to try and slow transit time. 6. Diabetes, new diagnosis - A1c 6.6%, glucose elevated recently in setting of decadron therapy for COVID. Recommend dietary changes as an outpatient. - started on sliding scale insulin therapy, AM glucose 171, will continue 5 units of long acting this evening. VTE prophylaxis: SCDs, can resume lovenox as noted above when thrombocytopenia improves. Dispo: unclear discharge given progression, if improvement possible need for rehab given severity of infection, if worsened he may need transfer., consider bipap/transfer if worsening hypoxemia Code Status: Full code, as discussed with patient who names his spouse, Adri as surrogate and POA COVID-19 COVID-19 status: Positive Result date/Date tested (Pos, Neg/Pending): 02/01/21 Quality VTE Deep Vein Thrombosis/Pulmonary Embolism Present on Admission: Yes
[2021-02-07] MEDS: REMDESIVIR 100 MG in SODIUM CHLORIDE 0.9% 230 ML 250 ML IV (20:16)
[2021-02-07] MEDS: INSULIN GLARGINE 100 UNIT/ML 3ML PEN 8 UNIT SUBCUT (20:17)
[2021-02-08] VITALS (19 sets, daily range): BP systolic 106–127; BP diastolic 69–77; PULSE 63–122; RESP 12–22; TEMP 36.3–36.9; O2SAT 86–99
[2021-02-08] MEDS: OXYCODONE IR 10 MG TABLET PO ×3 (02:32→23:51)
[2021-02-08 05:37] LABS: Add Manual Diff / Slide Review NO; Basophils Absolute Auto 0 /uL (0-100); Basophils Percent Auto 0.9 % (0-2); Eosinophils Absolute Auto 0 /uL (0-450); Hematocrit 24.3 % (41-53); Hemoglobin 8.3 g/dL (13.5-17.5); Lymphocytes Absolute Auto 200 /uL (1100-4500); Lymphocytes Percent Auto 6.2 % (25-40); Mean Corpuscular HGB Conc 34.2 % (30-36); Mean Corpuscular Hemoglobin 33.9 PG (26-34); Mean Corpuscular Volume 98.9 fL (80-100); Monocytes Absolute Auto 300 /uL (0-900); Monocytes Percent Auto 10.5 % (3-14); Neutrophils Absolute Auto 2200 /uL (1500-7000); Neutrophils Percent Auto 82.4 % (50-75); Platelet Count 37 X10^3/uL (150-400); Red Blood Cell Count 2.46 X10^6/uL (4.5-5.9); Red Cell Distribution Width 19.7 % (11.6-14.8); White Blood Cell Count 2.7 X10^3/uL (4.5-11.0)
[2021-02-08 05:46] LABS: Alanine Aminotransferase 17 IU/L (<50); Albumin Globulin Ratio 0.7 (1.0-2.8); Alkaline Phosphatase 113 U/L (38-126); Aspartate Aminotransferase 31 IU/L (17-59); BUN Creatinine Ratio 54.5 (6-22); Bilirubin Total 0.7 mg/dL (0.2-1.3); Blood Urea Nitrogen 24 mg/dL (9-20); Calcium 7.7 mg/dL (8.4-10.2); Carbon Dioxide 24 mmol/L (22-32); Chloride 108 mmol/L (98-107); Estimated Glomerular Filt Rate > 60.0 mL/min (>60); Glucose 179 mg/dL (70-100); HEMOLYSIS < 15 (0-50); Potassium 4.2 mmol/L (3.4-5.1); Sodium 134 mmol/L (137-145)
--- NOTE | 2021-02-08 07:18 | PC.NURSE ---
Addendum entered by Janna Borden R.N. 02/08/21 07:57: Per BRIGIDA Ferrera, while I was in the room with pt., Dr. Grace came by and instructed her to not let pt. get OOB again, due to the situation of desaturation and rapid HR. Original Note: Pt. had been in prone position since 0230 until 0630 this am due to desaturation to 89% consistently on the semifowlers and side position. This morning, assisted pt. to the BSC to have bm, pt. desats to the 60's and stayed there for a few minutes even after in bed in prone position. HR also was tachy up the the 130's, pulses of 100% 02 via the heated hi flow was given throughout this whole episode and RT also was called. RT came in bringing in a Bipap machine and turns out that one of the corrugated line of the machine was not connected properly and when fixed pt. Sats went up as high as 100%, and HR back to SR, B/P checked when HR was up with a result of 113/72. Pt. is stable at this time in prone position.
[2021-02-08 09:06] LABS: Anisocytosis 1+; Platelet Estimate Decreased on smear
[2021-02-08] MEDS: INSULIN LISPRO 100 UNIT/ML 3ML VIAL SUBCUT ×4 (09:27→20:59)
--- NOTE | 2021-02-08 09:31 | DIET.PN ---
Dietary Progress Note RD Note: Pts POs increased yesterday with adjustment of liquid ONS and easy chew diet from 25-50% to 75-100%.
[2021-02-08] MEDS: guaiFENesin ER 600 MG TAB 1200 MG PO ×2 (09:33→20:58)
[2021-02-08] MEDS: LIPASE PROTEASE AMYLASE 2 EACH PO ×3 (09:33→16:57)
[2021-02-08] MEDS: METOPROLOL ER 25 MG TABLET PO ×2 (09:33→21:02)
[2021-02-08] MEDS: FLUCONAZOLE 100 MG TABLET 200 MG PO (09:33)
[2021-02-08] MEDS: DEXAMETHASONE 10 MG/ML VIAL 6 MG IV (09:34)
[2021-02-08] MEDS: BARICITINIB 2 MG TABLET 4 MG PO (12:27)
[2021-02-08] MEDS: SODIUM CHLORIDE 0.9% FLUSH 10 ML IV (12:28)
[2021-02-08] MEDS: cefTRIAXone 1,000 MG in SODIUM CHLORIDE 0.9% 100 ML 200 ML IV (12:45)
--- NOTE | 2021-02-08 17:20 | P.PN_ITS ---
Subjective Subjective Interval history: Patient remains hypoxic, he is now on 50 L with an FiO2 of 60% to maintain oxygen saturation of 90-92%. He continues to have a cough. He has no diarrhea. Has no other complaints Exam Vital Signs (past 8 hours): - 02/08/21 09:33 02/08/21 11:08 02/08/21 11:09 Temperature Pulse Rate 122 H 79 79 Respiratory Rate 22 22 Blood Pressure 122/69 Pulse Oximetry 93 02/08/21 12:00 02/08/21 14:00 02/08/21 16:00 Temperature 97.6 F 97.3 F L Pulse Rate 81 72 75 Respiratory Rate 18 20 17 Blood Pressure 106/70 106/70 112/76 Pulse Oximetry 92 86 L 92 Fraction of Inspired Oxygen 60 Oxygen Delivery Method Heated High Flow Oxygen Flow Rate 45 Narrative Exam Narrative: Ill-appearing male lying in bed Resp Other: Decreased breath sounds with occasional scattered rhonchi Cardio Other: Cardiac exam regular rate and rhythm normal S1-S2 with a 2/6 systolic ejection murmur GI Other: Abdomen soft nontender nondistended Extrem Other: Extremities no edema Objective Labs Result Diagrams: 02/08/21 05:20 02/08/21 05:20 Labs: Laboratory Results - last 24 hr 02/08/21 02/08/21 05:20 05:20 WBC 2.7 L RBC 2.46 L Hgb 8.3 L Hct 24.3 L MCV 98.9 MCH 33.9 MCHC 34.2 RDW 19.7 H Plt Count 37 L Neut % (Auto) 82.4 H Lymph % (Auto) 6.2 L [place] % (Auto) 10.5 Eos % (Auto) 0.0 L Baso % (Auto) 0.9 Neut # (Auto) 2200 Lymph # (Auto) 200 L [place] # (Auto) 300 Eos # (Auto) 0 Baso # (Auto) 0 Platelet Estimate Decreased on smear RBC Morphology See below Anisocytosis 1+ H Sodium 134 L Potassium 4.2 Chloride 108 H Carbon Dioxide 24 BUN 24 H Creatinine 0.44 L Estimated GFR > 60.0 BUN/Creatinine Ratio 54.5 H Glucose 179 H Calcium 7.7 L Total Bilirubin 0.7 AST 31 ALT 17 Alkaline Phosphatase 113 Total Protein 5.0 L Albumin 2.0 L Globulin 3.0 Albumin/Globulin Ratio 0.7 L [facility] Medical History Cholangiocarcinoma COVID-19 vaccine series completed Ltmiv-Nnygvvgqw-Elaot syndrome Surgical History History of Whipple procedure Midline sternotomy scar Family History Mother CVA (cerebral vascular accident) Father Lung cancer Social History household members: spouse and family Smoking Status: Former smoker Assessment & Plan Assessment & Plan narrative: COVID-19 and superimposed klebsiella, and acute respiratory failure with hypoxia. - patient was vaccinated. - continue remdesevir and decadron, today is day 7 of therapy. - supportive care with pain control, fever suppression, and oxygen to maintain O2 >90% while on supplemental therapy. - currently on heated high flow. He is full code and would like intubation. - sputum cultures with klebsiella, ceftriaxone added in addition to azithro. Continue ceftriaxone (day 3/5) and now completed 3 days of azithro as well. - have ordered baricitinib, a janus kinase inhibitor, currently has an EUA for treatment of severe COVID. This is non-formulary and pharmacy is looking into it. -barcitinib ordered but coming [place] pharmacy [place], not available today, but should arrive tomorrow -continue high flow oxygen, proning, dexamethasone, and remdesivir -Consider Bipap- if oxygenation not improved with highflow at 70% - on high flow, 60% FIO2 45 liters, some small improvement -barcitinib started today Patient has been here 1 week, now weak, oxygenation improved when upright Consider PT consult 2. Pancytopenia with recent right femoral DVT diagnosed 3 weeks ago and present on admission, also with prior history of ITP and chronic thrombocytopenia. Pancytopenia likely secondary to chemotherapy, possible COVID is contributing as well. -Patient was self administering enoxaparin 120 mg daily which is held currently. - platelet count is 26 on admission compared to 63 in July 2020. Also has ? ITP based on oncology note that is scanned, though he does not appear to have any chronic medications related to ITP. - platelet martín of 12, improving slowly to 25 today. -Recommendation is when his platelet count increases to over 50, he can resume his anticoagulation with enoxaparin. Consulted with Dr. Goldsmith, Oncologist at [facility]. -have sent a HIT antibody given thrombosis and apparent worsening of thrombocytopenia and recent initiation of Lovenox. 4T score of 4, however vague presentation and alternative cause could be his acute infection or recent chemo which is more likely. -transfuse for Plt <10, <50 if bleeding develops. No current signs of active bleeding. -platelet count remains low at 33, no DVT prophylaxis with lovenox at this time Platelets still low at 37, SCD's 3. Severe hypokalemia, likely in the setting of persistent diarrhea, present on admission Potassium is 2.1 on admission, now up to 3.2. Will continue to follow and replete as necessary. improved 4. History of atrial fibrillation, unknown if currently present somewhat bradycardic initially improved with holding home beta mara for now. Also with soft BP still. episodes of junctional rhythm with bradycardia noted 5. Cholangiocarcinoma, s/p whipple procedure - continue creon - has mets to lung based on oncology note from 6 months ago. Chemo was last done on Thursday 01/25 per patient. - Continued diarrhea today, C. diff negative, will add loperamide to try and sl ow transit time. 6. Diabetes, new diagnosis - A1c 6.6%, glucose elevated recently in setting of decadron therapy for COVID. Recommend dietary changes as an outpatient. - started on sliding scale insulin therapy, AM glucose 171, will continue 5 units of long acting this evening. VTE prophylaxis: SCDs, can resume lovenox as noted above when thrombocytopenia improves. Dispo: unclear discharge given progression, if improvement possible need for rehab given severity of infection, if worsened he may need transfer., consider bipap/transfer if worsening hypoxemia Code Status: Full code, as discussed with patient who names his spouse, Adri as surrogate and POA Quality VTE Deep Vein Thrombosis/Pulmonary Embolism Present on Admission: Yes
[2021-02-08] MEDS: REMDESIVIR 100 MG in SODIUM CHLORIDE 0.9% 230 ML 250 ML IV (19:41)
[2021-02-08] MEDS: INSULIN GLARGINE 100 UNIT/ML 3ML PEN 15 UNIT SUBCUT (20:58)
[2021-02-09] VITALS (16 sets, daily range): BP systolic 114–137; BP diastolic 70–81; PULSE 53–89; RESP 13–24; TEMP 36.7–36.9; O2SAT 90–95
--- NOTE | 2021-02-09 01:56 | PC.NURSE ---
Manager Cash Notes-At beginning of shift patient was attempting to prone but SpO2 was sustaining <87%, RT increased HHFNC to 60L/90% FIO2, he got up to BSC without resp distress, SpO2 increased right away to >96%, he did not prone again when back to bed, HOB 35 degrees, oxycodone given for rib/chest pain, Lung sounds fairly clear except 'pop' sound auscultated to Rt anterior. He had large loose BM. VSS.
[2021-02-09] MEDS: SODIUM CHLORIDE 0.9% FLUSH 10 ML IV (05:21)
[2021-02-09 05:52] LABS: Add Manual Diff / Slide Review NO; Basophils Absolute Auto 0 /uL (0-100); Basophils Percent Auto 0.6 % (0-2); Eosinophils Absolute Auto 0 /uL (0-450); Hemoglobin 8.8 g/dL (13.5-17.5); Lymphocytes Absolute Auto 400 /uL (1100-4500); Lymphocytes Percent Auto 9.5 % (25-40); Mean Corpuscular HGB Conc 33.8 % (30-36); Mean Corpuscular Hemoglobin 33.5 PG (26-34); Mean Corpuscular Volume 99.1 fL (80-100); Monocytes Absolute Auto 600 /uL (0-900); Monocytes Percent Auto 15.2 % (3-14); Neutrophils Absolute Auto 2900 /uL (1500-7000); Neutrophils Percent Auto 74.7 % (50-75); Platelet Count 49 X10^3/uL (150-400); Red Blood Cell Count 2.62 X10^6/uL (4.5-5.9); Red Cell Distribution Width 19.7 % (11.6-14.8); White Blood Cell Count 3.9 X10^3/uL (4.5-11.0)
[2021-02-09 05:59] LABS: Alanine Aminotransferase 20 IU/L (<50); Albumin Globulin Ratio 0.6 (1.0-2.8); Alkaline Phosphatase 129 U/L (38-126); Aspartate Aminotransferase 37 IU/L (17-59); BUN Creatinine Ratio 51.2 (6-22); Bilirubin Total 0.7 mg/dL (0.2-1.3); Blood Urea Nitrogen 22 mg/dL (9-20); Calcium 7.8 mg/dL (8.4-10.2); Carbon Dioxide 24 mmol/L (22-32); Chloride 107 mmol/L (98-107); Estimated Glomerular Filt Rate > 60.0 mL/min (>60); Globulin 3.3 g/dL (1.7-4.1); Glucose 119 mg/dL (70-100); HEMOLYSIS < 15 (0-50); Sodium 134 mmol/L (137-145); Total Protein 5.3 g/dL (6.3-8.2)
[2021-02-09 06:04] LABS: D Dimer 5808 ng/mL (<230)
[2021-02-09] MEDS: BARICITINIB 2 MG TABLET 4 MG PO (08:42)
[2021-02-09] MEDS: LIPASE PROTEASE AMYLASE 2 EACH PO ×3 (08:42→17:05)
[2021-02-09] MEDS: METOPROLOL ER 25 MG TABLET PO ×2 (08:46→20:04)
[2021-02-09] MEDS: guaiFENesin ER 600 MG TAB 1200 MG PO ×2 (08:46→20:04)
[2021-02-09] MEDS: DEXAMETHASONE 10 MG/ML VIAL 6 MG IV (08:46)
--- NOTE | 2021-02-09 12:44 | PM.PN.1 ---
Subjective Subjective Date Patient Seen: 02/09/21 Time Patient Seen: 08:00 Interval history: Today he has no complaints. He remains on high flow heated oxygen. However he denies currently feeling short of breath. He denies cough. Exam Vital Signs (past 8 hours): - 02/09/21 06:25 02/09/21 08:00 02/09/21 10:20 Temperature 98.2 F Pulse Rate 53 L 89 70 Respiratory Rate 18 17 19 Blood Pressure 121/78 Pulse Oximetry 93 91 90 L 02/09/21 12:00 Temperature 98.5 F Pulse Rate 73 Respiratory Rate 18 Blood Pressure 129/81 Pulse Oximetry 91 Fraction of Inspired Oxygen 0.62 Oxygen Delivery Method Heated High Flow Oxygen Flow Rate 50 Narrative Exam Narrative: GEN: no acute distress CV: regular rate and rhythm PULM: diminished, coarse breath sounds ABD: soft, nontender, nondistended, no organomegaly EXT: warm and well perfused with no edema Objective Labs Result Diagrams: 02/09/21 05:30 02/09/21 05:30 Labs: Laboratory Results - last 24 hr 02/09/21 02/09/21 02/09/21 05:30 05:30 05:30 WBC 3.9 L RBC 2.62 L Hgb 8.8 L Hct 26.0 L MCV 99.1 MCH 33.5 MCHC 33.8 RDW 19.7 H Plt Count 49 L Neut % (Auto) 74.7 Lymph % (Auto) 9.5 L [place] % (Auto) 15.2 H Eos % (Auto) 0.0 L Baso % (Auto) 0.6 Neut # (Auto) 2900 Lymph # (Auto) 400 L [place] # (Auto) 600 Eos # (Auto) 0 Baso # (Auto) 0 D-Dimer 5808 H Sodium 134 L Potassium 4.0 Chloride 107 Carbon Dioxide 24 BUN 22 H Creatinine 0.43 L Estimated GFR > 60.0 BUN/Creatinine Ratio 51.2 H Glucose 119 H Calcium 7.8 L Total Bilirubin 0.7 AST 37 ALT 20 Alkaline Phosphatase 129 H Total Protein 5.3 L Albumin 2.0 L Globulin 3.3 Albumin/Globulin Ratio 0.6 L Procalcitonin 02/09/21 05:30 WBC RBC Hgb Hct MCV MCH MCHC RDW Plt Count Neut % (Auto) Lymph % (Auto) [place] % (Auto) Eos % (Auto) Baso % (Auto) Neut # (Auto) Lymph # (Auto) [place] # (Auto) Eos # (Auto) Baso # (Auto) D-Dimer Sodium Potassium Chloride Carbon Dioxide BUN Creatinine Estimated GFR BUN/Creatinine Ratio Glucose Calcium Total Bilirubin AST ALT Alkaline Phosphatase Total Protein Albumin Globulin Albumin/Globulin Ratio Procalcitonin 0.10 [facility] Medical History Cholangiocarcinoma COVID-19 vaccine series completed Ucxba-Rfsqfcxbg-Csfat syndrome Surgical History History of Whipple procedure Midline sternotomy scar Family History Mother CVA (cerebral vascular accident) Father Lung cancer Social History household members: spouse and family Smoking Status: Former smoker Assessment & Plan Assessment & Plan narrative: Mr. Dai is a 60M admitted with hypoxemic respiratory failure secondary to COVID pneumonia. 1. COVID-19 and superimposed klebsiella, and acute respiratory failure with hypoxia. - patient was vaccinated. - continue remdesevir and decadron, today is day 7 of therapy. - supportive care with pain control, fever suppression, and oxygen to maintain O2 >90% while on supplemental therapy. - currently on heated high flow. He is full code and would like intubation. - sputum cultures with klebsiella, ceftriaxone added in addition to azithro. completed antibiotics -continue high flow oxygen, proning, dexamethasone, and remdesivir -Consider Bipap- if oxygenation not improved with highflow at 70% -on high flow, 60% FIO2 45 liters, some small improvement -barcitinib started -Patient has been here 1 week, now weak, oxygenation improved when upright -Consider PT consult 2. Pancytopenia with recent right femoral DVT diagnosed 3 weeks ago and present on admission, also with prior history of ITP and chronic thrombocytopenia. Pancytopenia likely secondary to chemotherapy, possible COVID is contributing as well. -Patient was self administering enoxaparin 120 mg daily which is held currently. -platelet count is 26 on admission compared to 63 in July 2020. Also has ? ITP based on oncology note that is scanned, though he does not appear to have any chronic medications related to ITP. -Recommendation is when his platelet count increases to over 50, he can resume his anticoagulation with enoxaparin. Consulted with Dr. Goldsmith, Oncologist at [facility]. -have sent a HIT antibody given thrombosis and apparent worsening of thrombocytopenia and recent initiation of Lovenox. 4T score of 4, however vague presentation and alternative cause could be his acute infection or recent chemo which is more likely. -transfuse for Plt <10, <50 if bleeding develops. No current signs of active bleeding. 3. Severe hypokalemia, likely in the setting of persistent diarrhea, present on admission -Potassium is 2.1 on admission, now up to 3.2. Will continue to follow and replete as necessary. -improved 4. History of atrial fibrillation, unknown if currently present -somewhat bradycardic initially improved with holding home beta mara for now. Also with soft BP still. -episodes of junctional rhythm with bradycardia noted 5. Cholangiocarcinoma, s/p whipple procedure - continue creon - has mets to lung based on oncology note from 6 months ago. Chemo was last done on Thursday 01/25 per patient. - Continued diarrhea today, C. diff negative, will add loperamide to try and slow transit time. 6. Diabetes, new diagnosis - A1c 6.6%, glucose elevated recently in setting of decadron therapy for COVID. Recommend dietary changes as an outpatient. - started on sliding scale insulin therapy, AM glucose 171, will continue 5 units of long acting this evening. VTE prophylaxis: SCDs, can resume lovenox as noted above when thrombocytopenia improves. Dispo: unclear discharge given progression, if improvement possible need for rehab given severity of infection, if worsened he may need transfer., consider bipap/transfer if worsening hypoxemia Code Status: Full code, as discussed with patient who names his spouse, Adri as surrogate and POA Quality VTE Deep Vein Thrombosis/Pulmonary Embolism Present on Admission: Yes
[2021-02-09] MEDS: LOPERAMIDE 2 MG CAPSULE PO (14:45)
--- NOTE | 2021-02-09 14:59 | DI.RAD.S_ITS ---
PROCEDURE: XR CHEST 1V INDICATIONS: worse sob/hypoxia, +covid, also crackles and LE edema, chf? TECHNIQUE: One view of the chest was acquired. COMPARISON: [facility], CR, XR CHEST 1V, 02/05/2021, 5:54. FINDINGS: Surgical changes and devices: Median sternotomy. Right-sided port catheter, tip of which is at the cavoatrial junction. Lungs and pleura: Increased, moderate bilateral lower lung airspace opacities. No pleural effusions or pneumothorax. Mediastinum: Mediastinal contours appear normal. Heart size is normal. Bones and chest wall: No suspicious bony lesions. Overlying soft tissues appear unremarkable. IMPRESSION: 1. Increased, bilateral lower lobe pneumonia. Continued plain film surveillance is recommended to ensure resolution, and to exclude underlying or central malignancy. Dictated by: Eunice Jaramillo M.D. on 02/09/2021 at 14:15 Approved by: Eunice Jaramillo M.D. on 02/09/2021 at 14:16
--- NOTE | 2021-02-09 15:30 | CM.DPC ---
DCP Cont: Per MD, pt continues to need heated highflow oxygen and attempting to prone at times and not improving much. Per RN, pt able to get up to BSC and void and have bm and continues to have some crackles and pop sounds in his chest and needing some pain medication for his pain management. Per dietary, pt able to tolerate easy to chew diet and some po currently. SW needs unclear at this time. Plan: SW to continue to follow closely for medical progress and determination closer to discharge if pt will be safe for return home with spouse when medically stable and ongoing chemo at [facility] at baseline. RASHID Brower
[2021-02-09] MEDS: INSULIN LISPRO 100 UNIT/ML 3ML VIAL SUBCUT ×2 (17:05→20:06)
[2021-02-09] MEDS: REMDESIVIR 100 MG in SODIUM CHLORIDE 0.9% 230 ML 250 ML IV (20:03)
[2021-02-09] MEDS: INSULIN GLARGINE 100 UNIT/ML 3ML PEN 15 UNIT SUBCUT (20:05)
--- NOTE | 2021-02-09 21:11 | PC.NURSE ---
Patient resting in bed most of the shift. Up to the BSC a few times w/SBA, patient appears weak but able to move around to and from bed well. Patient has been on 50L and 60% FIO2 w/ sats in the low 90s. Patient has been A&O, calm and cooperative.
[2021-02-10] VITALS (21 sets, daily range): BP systolic 103–138; BP diastolic 66–81; PULSE 61–97; RESP 12–20; TEMP 36.4–37; O2SAT 92–98
[2021-02-10] MEDS: SODIUM CHLORIDE 0.9% FLUSH 10 ML IV ×2 (05:09→21:31)
[2021-02-10 05:48] LABS: Hematocrit 28.5 % (41-53); Hemoglobin 9.7 g/dL (13.5-17.5); Mean Corpuscular Hemoglobin 33.6 PG (26-34); Mean Corpuscular Volume 98.8 fL (80-100); Platelet Count 79 X10^3/uL (150-400); Red Blood Cell Count 2.88 X10^6/uL (4.5-5.9); Red Cell Distribution Width 20.7 % (11.6-14.8); White Blood Cell Count 4.7 X10^3/uL (4.5-11.0)
[2021-02-10 05:55] LABS: BUN Creatinine Ratio 52.5 (6-22); Blood Urea Nitrogen 21 mg/dL (9-20); Calcium 7.9 mg/dL (8.4-10.2); Carbon Dioxide 24 mmol/L (22-32); Chloride 106 mmol/L (98-107); Estimated Glomerular Filt Rate > 60.0 mL/min (>60); Glucose 66 mg/dL (70-100); HEMOLYSIS < 15 (0-50); Potassium 3.6 mmol/L (3.4-5.1); Sodium 134 mmol/L (137-145)
--- NOTE | 2021-02-10 06:09 | PC.NURSE ---
Clinical Reimbursement Specialist Note-Patient rested well, HHF 50L/60% FIO2, SpO2 remained >90%, HOB elevated, no proning, denies chest pain or dyspnea. Lab value blood glucose 66 in am, says he is hungry, no other symptoms of hypoglycemia, pudding and joaquin kris given.
[2021-02-10 07:34] LABS: Alanine Aminotransferase 25 IU/L (<50); Albumin 2.2 g/dL (3.5-5.0); Albumin Globulin Ratio 0.6 (1.0-2.8); Alkaline Phosphatase 156 U/L (38-126); Aspartate Aminotransferase 53 IU/L (17-59); Bilirubin Total 0.9 mg/dL (0.2-1.3); Bilirubin Unconjugated 0.6 mg/dL (0.0-1.1); Globulin 3.5 g/dL (1.7-4.1); HEMOLYSIS < 15 (0-50); Total Protein 5.7 g/dL (6.3-8.2)
[2021-02-10] MEDS: LOPERAMIDE 2 MG CAPSULE PO ×2 (08:03→12:12)
[2021-02-10] MEDS: LIPASE PROTEASE AMYLASE 2 EACH PO ×3 (08:03→16:52)
[2021-02-10] MEDS: guaiFENesin ER 600 MG TAB 1200 MG PO ×2 (08:03→20:19)
[2021-02-10] MEDS: METOPROLOL ER 25 MG TABLET PO (08:03)
[2021-02-10] MEDS: DEXAMETHASONE 10 MG/ML VIAL 6 MG IV (08:03)
[2021-02-10] MEDS: BARICITINIB 2 MG TABLET 4 MG PO (08:03)
[2021-02-10] MEDS: cefTRIAXone 1,000 MG in SODIUM CHLORIDE 0.9% 100 ML 200 ML IV (08:07)
[2021-02-10] MEDS: ENOXAPARIN 40 MG/0.4 ML SYRINGE SUBCUT (08:07)
--- NOTE | 2021-02-10 13:02 | PM.PN.1 ---
Subjective Subjective Date Patient Seen: 02/10/21 Time Patient Seen: 08:00 Interval history: He said he had a bad night overnight, feeling short of breath. He is feeling a little better this morning. However, overall he has no significant improvement. He continues to have yellowish sputum. Exam Vital Signs (past 8 hours): - 02/10/21 05:52 02/10/21 07:50 02/10/21 08:00 Temperature 97.9 F Pulse Rate 72 63 Respiratory Rate 16 16 18 Blood Pressure 124/79 124/79 Pulse Oximetry 92 93 97 02/10/21 09:40 02/10/21 12:00 Temperature 97.6 F Pulse Rate 65 Respiratory Rate 17 19 Blood Pressure 121/79 103/66 Pulse Oximetry 95 95 Fraction of Inspired Oxygen 0.50 Oxygen Delivery Method Heated High Flow Oxygen Flow Rate 50 Narrative Exam Narrative: GEN: no acute distress CV: regular rate and rhythm PULM: diminished, coarse breath sounds ABD: soft, nontender, nondistended, no organomegaly EXT: warm and well perfused with no edema Objective Labs Result Diagrams: 02/10/21 05:00 02/10/21 05:00 Labs: Laboratory Results - last 24 hr 02/10/21 02/10/21 02/10/21 05:00 05:00 05:00 WBC 4.7 RBC 2.88 L Hgb 9.7 L Hct 28.5 L MCV 98.8 MCH 33.6 MCHC 34.0 RDW 20.7 H Plt Count 79 L Sodium 134 L Potassium 3.6 Chloride 106 Carbon Dioxide 24 BUN 21 H Creatinine 0.40 L Estimated GFR > 60.0 BUN/Creatinine Ratio 52.5 H Glucose 66 L Calcium 7.9 L Total Bilirubin 0.9 Conjugated Bilirubin 0.0 Unconjugated Bilirubin 0.6 AST 53 ALT 25 Alkaline Phosphatase 156 H Total Protein 5.7 L Albumin 2.2 L Globulin 3.5 Albumin/Globulin Ratio 0.6 L COUNTS INCLUDE 234 BEDS AT THE [facility] Medical History Cholangiocarcinoma COVID-19 vaccine series completed Jhdhy-Ctsocdjjk-Zodpi syndrome Surgical History History of Whipple procedure Midline sternotomy scar Family History Mother CVA (cerebral vascular accident) Father Lung cancer Social History household members: spouse and family Smoking Status: Former smoker Assessment & Plan Assessment & Plan narrative: Mr. Dai is a 60M admitted with hypoxemic respiratory failure secondary to COVID pneumonia. 1. COVID-19 and superimposed klebsiella, and acute respiratory failure with hypoxia. - patient was vaccinated. - continue remdesevir and decadron - supportive care with pain control, fever suppression, and oxygen to maintain O2 >90% while on supplemental therapy. - currently on heated high flow. He is full code and would like intubation. - sputum cultures with klebsiella, ceftriaxone continued, plan for a 7-10 day course given continued poor respiratory status -continue high flow oxygen, proning, dexamethasone, and remdesivir -barcitinib started -Patient has been here greater than 1 week, now weak -Consider PT consult 2. Pancytopenia with recent right femoral DVT diagnosed 3 weeks ago and present on admission, also with prior history of ITP and chronic thrombocytopenia. Pancytopenia likely secondary to chemotherapy, possible COVID is contributing as well. -Patient was self administering enoxaparin 120 mg daily which is held currently. -platelet count is 26 on admission compared to 63 in July 2020. Also has ? ITP based on oncology note that is scanned, though he does not appear to have any chronic medications related to ITP. -Recommendation is when his platelet count increases to over 50, he can resume his anticoagulation with enoxaparin. Consulted with Dr. Goldsmith, Oncologist at [facility]. -have sent a HIT antibody given thrombosis and apparent worsening of thrombocytopenia and recent initiation of Lovenox. 4T score of 4, however vague presentation and alternative cause could be his acute infection or recent chemo which is more likely. -transfuse for Plt <10, <50 if bleeding develops. No current signs of active bleeding. 3. Severe hypokalemia, likely in the setting of persistent diarrhea, present on admission -Potassium is 2.1 on admission, now improved after repletion 4. History of atrial fibrillation, unknown if currently present -somewhat bradycardic initially improved with holding home beta mara for now. Also with soft BP still. -episodes of junctional rhythm with bradycardia noted 5. Cholangiocarcinoma, s/p whipple procedure - continue creon - has mets to lung based on oncology note from 6 months ago. Chemo was last done on Thursday 01/25 per patient. - Continued diarrhea today, C. diff negative, will add loperamide to try and slow transit time. 6. Diabetes, new diagnosis - A1c 6.6%, glucose elevated recently in setting of decadron therapy for COVID. Recommend dietary changes as an outpatient. - started on sliding scale insulin therapy, AM glucose 171, will continue 5 units of long acting this evening. VTE prophylaxis: SCDs, can resume lovenox as noted above when thrombocytopenia improves. Dispo: unclear discharge given progression, if improvement possible need for rehab given severity of infection, if worsened he may need transfer., consider bipap/transfer if worsening hypoxemia Code Status: Full code, as discussed with patient who names his spouse, Adri as surrogate and POA Quality VTE Deep Vein Thrombosis/Pulmonary Embolism Present on Admission: Yes
[2021-02-10] MEDS: INSULIN LISPRO 100 UNIT/ML 3ML VIAL SUBCUT ×2 (16:51→20:22)
[2021-02-10] MEDS: ASPIRIN 325 MG TABLET PO (18:25)
[2021-02-10] MEDS: METOPROLOL IR 25 MG TABLET PO (18:40)
[2021-02-10 18:49] LABS: Troponin I < 0.012 ng/mL (0.01-0.034)
--- NOTE | 2021-02-10 19:07 | PC.NURSE ---
Addendum entered by Dorothy Chiu R.N. 02/10/21 20:59: Patient is resting in bed. States he is feeling much better and then fell back to sleep. Denied chest pain or sob. Addendum entered by Dorothy Chiu R.N. 02/10/21 19:42: at this time patients heart rate is low 100s while resting in bed. o2 sats 96% on 45L & 45% FIO2 Original Note: Patient was resting in bed, then around 1800 his heart rate jumped up to the 120s-130s Afib RVR (patient had been NSR since admission). During that time patient had c/o abd pain and bottom pain. Patient up to the BSC and had an episode of diarrhea. Patient then c/o feeling light headed and dizzy, when up to the BSC. HR up to as much as the 170s. Got patient back to bed. HR did decrease to the low 100s-120s. Patient c/o mild chest pain but no sob. Then patient started feeling better before any meds where given. notified and came to see patient. EKG, labs and meds ordered and given to patient. @ 1935 Patient has been resting in bed comfortably for about an hour. Was a little anxious and got a dose of Ativan. RT in for 2nd EKG and decreased patient HHF down to 45L & 45% FIO2 since patients o2 sats where 98% on 50L & 50% FIO2. o2 Sats now are 96%.
[2021-02-10] MEDS: LORazepam 0.5 MG TABLET PO (19:12)
[2021-02-10] MEDS: METOPROLOL ER 25 MG TABLET 50 MG PO (20:19)
[2021-02-10] MEDS: REMDESIVIR 100 MG in SODIUM CHLORIDE 0.9% 230 ML 250 ML IV (20:19)
[2021-02-10] MEDS: INSULIN GLARGINE 100 UNIT/ML 3ML PEN 15 UNIT SUBCUT (20:21)
[2021-02-11] VITALS (24 sets, daily range): BP systolic 81–113; BP diastolic 56–79; PULSE 64–122; RESP 11–22; TEMP 36.4–37.1; O2SAT 88–99
[2021-02-11] MEDS: SODIUM CHLORIDE 0.9% FLUSH 10 ML IV ×2 (01:04→06:26)
[2021-02-11 01:58] LABS: Troponin I < 0.012 ng/mL (0.01-0.034)
--- NOTE | 2021-02-11 03:01 | PC.NURSE ---
Addendum entered by Tiny Bhagat R.N. 02/11/21 06:56: 0630 Patient given Immodium for loose stools. Patients sats 91-92% on 45 L and FIo2 55%. Addendum entered by Tiny Bhagat R.N. 02/11/21 06:50: [id number] Patient incontinent of loose stool. Patient desating to 80% with repositioning. RT in for assessment after 15 minutes without recovery to 88%. Remained at 45 L Fio2 45%. Adjustments made to 45 L and 55% Fio2. Pt sats increasing to 90-92% in L sidelying position. Original Note: 0115 Patient awakened for assessment and Troponin lab draw. Patient drowsy, but responds to voice. Denies pain. Repositioned with use of Kalpana bed and heels floating on pillow. Assessment completed. Patient remains in Afib, CVR rate 70-80s. Remains on HHF O2 45L/0.45 Fio2 Sats 92-94%. Lungs with coarse rhonchi.
[2021-02-11] MEDS: LOPERAMIDE 2 MG CAPSULE PO (06:25)
[2021-02-11 07:08] LABS: Alanine Aminotransferase 22 IU/L (<50); Albumin 1.9 g/dL (3.5-5.0); Albumin Globulin Ratio 0.6 (1.0-2.8); Alkaline Phosphatase 130 U/L (38-126); Aspartate Aminotransferase 38 IU/L (17-59); BUN Creatinine Ratio 45.9 (6-22); Bilirubin Total 0.7 mg/dL (0.2-1.3); Bilirubin Unconjugated 0.6 mg/dL (0.0-1.1); Blood Urea Nitrogen 17 mg/dL (9-20); C-Reactive Protein Quant 1.8 mg/dL (<1.0); Calcium 7.8 mg/dL (8.4-10.2); Carbon Dioxide 25 mmol/L (22-32); Chloride 108 mmol/L (98-107); Estimated Glomerular Filt Rate > 60.0 mL/min (>60); Globulin 3.1 g/dL (1.7-4.1); Glucose 91 mg/dL (70-100); HEMOLYSIS < 15 (0-50); Potassium 3.6 mmol/L (3.4-5.1); Sodium 135 mmol/L (137-145)
[2021-02-11 07:13] LABS: D Dimer 5284 ng/mL (<230)
[2021-02-11 07:16] LABS: Troponin I < 0.012 ng/mL (0.01-0.034)
[2021-02-11 07:22] LABS: Procalcitonin 0.09 ng/mL (<0.5)
[2021-02-11 07:40] LABS: Ferritin 777 ng/mL (18-464)
[2021-02-11 07:44] LABS: Hemoglobin 8.8 g/dL (13.5-17.5); Mean Corpuscular HGB Conc 34.1 % (30-36); Mean Corpuscular Hemoglobin 33.6 PG (26-34); Mean Corpuscular Volume 98.7 fL (80-100); Platelet Count 55 X10^3/uL (150-400); Red Blood Cell Count 2.63 X10^6/uL (4.5-5.9); White Blood Cell Count 2.5 X10^3/uL (4.5-11.0)
--- NOTE | 2021-02-11 07:58 | DI.RAD.S_ITS ---
PROCEDURE: XR CHEST 1V INDICATIONS: sob TECHNIQUE: One view of the chest was acquired. COMPARISON: [facility], CR, XR CHEST 1V, 02/09/2021, 15:01. FINDINGS: Surgical changes and devices: Status median sternotomy and CABG. Lungs and pleura: There are bilateral airspace opacities, improved on the right compared to the prior study and unchanged on the left compared to the prior study. There is no pleural effusion or pneumothorax. Mediastinum: Mediastinal contours appear normal. Heart size is normal. Bones and chest wall: No suspicious bony lesions. Overlying soft tissues appear unremarkable. IMPRESSION: 1. Airspace opacities in the right lung have improved compared to 02/09/2021. 2. Airspace opacities in the left are relatively unchanged. Dictated by: Kavon Courtney M.D. on 02/11/2021 at 8:42 Approved by: Kavon Courtney M.D. on 02/11/2021 at 8:46
[2021-02-11 08:25] LABS: Fractionated Inspired Oxygen 55; HCO3 ABG 26 mmol/L (22-26); Oxygen Saturation ABG 91 % (95-100); PCO2 ABG 31.8 mmHg (35-45); PO2 ABG 53 mmHg (80-100); TCO2 ABG 27 mmol/L (21-31); pH ABG 7.52 (7.35-7.45)
[2021-02-11] MEDS: ONDANSETRON 4 MG/2 ML INJ IV (09:32)
[2021-02-11] MEDS: FUROSEMIDE 20 MG/2 ML VIAL IV (09:33)
[2021-02-11] MEDS: DEXAMETHASONE 10 MG/ML VIAL 6 MG IV (09:33)
[2021-02-11] MEDS: METOPROLOL ER 25 MG TABLET 50 MG PO ×2 (09:34→21:10)
[2021-02-11] MEDS: cefTRIAXone 1,000 MG in SODIUM CHLORIDE 0.9% 100 ML 200 ML IV (09:34)
--- NOTE | 2021-02-11 11:49 | P.PN_ITS ---
Subjective Subjective Date Patient Seen: 02/11/21 Time Patient Seen: 08:00 Interval history: Last night he became tachycardic had some chest pain. Troponins negative. He did get aspirin. He had afib with rvr which improved with increasing his metoprolol. This morning he is feeling worse, weak, more lethargic. He is more short of breath Exam Vital Signs (past 8 hours): - 02/11/21 04:21 02/11/21 05:35 02/11/21 05:42 Temperature 97.6 F Pulse Rate 83 82 Respiratory Rate 18 16 Blood Pressure 106/72 106/72 Pulse Oximetry 91 96 02/11/21 06:20 02/11/21 08:26 02/11/21 08:30 Temperature 98.1 F Pulse Rate 74 82 85 Respiratory Rate 16 20 18 Blood Pressure 106/72 113/79 Pulse Oximetry 93 92 02/11/21 08:39 02/11/21 09:28 02/11/21 09:34 Temperature Pulse Rate 91 H 122 H Respiratory Rate 16 22 Blood Pressure Pulse Oximetry 88 L 88 L Fraction of Inspired Oxygen 45 Oxygen Delivery Method Heated High Flow Oxygen Flow Rate 45 Narrative Exam Narrative: GEN: no acute distress CV: regular rate and rhythm PULM: diminished, coarse breath sounds ABD: soft, nontender, nondistended, no organomegaly EXT: warm and well perfused with no edema Objective Labs Result Diagrams: 02/11/21 06:30 02/11/21 06:30 Labs: Laboratory Results - last 24 hr 02/10/21 02/11/21 02/11/21 18:20 01:15 06:30 WBC 2.5 L RBC 2.63 L Hgb 8.8 L Hct 26.0 L MCV 98.7 MCH 33.6 MCHC 34.1 RDW 22.0 H Plt Count 55 L D-Dimer ABG pH ABG pCO2 ABG pO2 ABG HCO3 ABG Total CO2 ABG O2 Saturation ABG Base Excess FiO2 Sodium Potassium Chloride Carbon Dioxide BUN Creatinine Estimated GFR BUN/Creatinine Ratio Glucose Calcium Ferritin Total Bilirubin Conjugated Bilirubin Unconjugated Bilirubin AST ALT Alkaline Phosphatase Troponin I < 0.012 < 0.012 C-Reactive Protein Total Protein Albumin Globulin Albumin/Globulin Ratio Procalcitonin 02/11/21 02/11/21 02/11/21 06:30 06:30 06:30 WBC RBC Hgb Hct MCV MCH MCHC RDW Plt Count D-Dimer 5284 H ABG pH ABG pCO2 ABG pO2 ABG HCO3 ABG Total CO2 ABG O2 Saturation ABG Base Excess FiO2 Sodium 135 L Potassium 3.6 Chloride 108 H Carbon Dioxide 25 BUN 17 Creatinine 0.37 L Estimated GFR > 60.0 BUN/Creatinine Ratio 45.9 H Glucose 91 Calcium 7.8 L Ferritin 777 H Total Bilirubin 0.7 Conjugated Bilirubin 0.0 Unconjugated Bilirubin 0.6 AST 38 ALT 22 Alkaline Phosphatase 130 H Troponin I < 0.012 C-Reactive Protein 1.8 H Total Protein 5.0 L Albumin 1.9 L Globulin 3.1 Albumin/Globulin Ratio 0.6 L Procalcitonin 0.09 02/11/21 08:15 WBC RBC Hgb Hct MCV MCH MCHC RDW Plt Count D-Dimer ABG pH 7.52 H ABG pCO2 31.8 L ABG pO2 53 L ABG HCO3 26 ABG Total CO2 27 ABG O2 Saturation 91 L ABG Base Excess 3.0 H FiO2 55 Sodium Potassium Chloride Carbon Dioxide BUN Creatinine Estimated GFR BUN/Creatinine Ratio Glucose Calcium Ferritin Total Bilirubin Conjugated Bilirubin Unconjugated Bilirubin AST ALT Alkaline Phosphatase Troponin I C-Reactive Protein Total Protein Albumin Globulin Albumin/Globulin Ratio Procalcitonin [facility], [facility] Medical History Cholangiocarcinoma COVID-19 vaccine series completed Gfrjz-Adoclxdio-Cpujb syndrome Surgical History History of Whipple procedure Midline sternotomy scar Family History Mother CVA (cerebral vascular accident) Father Lung cancer Social History household members: spouse and family Smoking Status: Former smoker Assessment & Plan Assessment & Plan narrative: Mr. Dai is a 60M admitted with hypoxemic resp iratory failure secondary to COVID pneumonia. 1. COVID-19 and superimposed klebsiella, and acute respiratory failure with hypoxia. -patient was vaccinated. -supportive care with pain control, fever suppression, and oxygen to maintain O2 >90% while on supplemental therapy. -currently on heated high flow. He is currently full code -sputum cultures with klebsiella, ceftriaxone continued, plan for a 7-10 day course given continued poor respiratory status -continue high flow oxygen, proning, dexamethasone, and remdesivir -barcitinib started -despite these therapies patient continues to decline physically, requiring higher levels of oxygen, becoming more fatigued, this is likely due to his poor immune system in setting of cancer and chemotherapy 2. Pancytopenia with recent right femoral DVT diagnosed 3 weeks ago and present on admission, also with prior history of ITP and chronic thrombocytopenia. Pancytopenia likely secondary to chemotherapy, possible COVID is contributing as well. -Patient was self administering enoxaparin 120 mg daily which is held currently. -platelet count is 26 on admission compared to 63 in July 2020. Also has ? ITP based on oncology note that is scanned, though he does not appear to have any chronic medications related to ITP. -Recommendation is when his platelet count increases to over 50, he can resume his anticoagulation with enoxaparin. Consulted with Dr. Goldsmith, Oncologist at [facility]. -have sent a HIT antibody given thrombosis and apparent worsening of thrombocytopenia and recent initiation of Lovenox. 4T score of 4, however vague presentation and alternative cause could be his acute infection or recent chemo which is more likely. -transfuse for Plt <10, <50 if bleeding develops. No current signs of active bleeding. -restarted his anticoagulation on 02/11 3. Severe hypokalemia, likely in the setting of persistent diarrhea, present on admission -Potassium is 2.1 on admission, now improved after repletion 4. History of atrial fibrillation, with rvr -somewhat bradycardic initially improved with holding home beta mara -developed afib with rvr on 02/10 and needed increasing doses of metoprolol -episodes of junctional rhythm with bradycardia noted 5. Cholangiocarcinoma, s/p whipple procedure - continue creon - has mets to lung based on oncology note from 6 months ago. Chemo was last done on Thursday 01/25 per patient. - Continued diarrhea today, C. diff negative, will add loperamide to try and slow transit time. 6. Diabetes, new diagnosis - A1c 6.6%, glucose elevated recently in setting of decadron therapy for COVID. Recommend dietary changes as an outpatient. - started on sliding scale insulin therapy, AM glucose 171, will continue 5 units of long acting this evening. VTE prophylaxis: SCDs, can resume lovenox as noted above when thrombocytopenia improves. Dispo: unclear discharge given progression Code Status: Full code, as discussed with patient who names his spouse, Adri as surrogate and POA Quality VTE Deep Vein Thrombosis/Pulmonary Embolism Present on Admission: Yes
--- NOTE | 2021-02-11 13:28 | DIET.PN ---
Dietary Progress Note RD Note: Pts POs over weekend 50-75% with addition of ONS and easy chew diet. RD to continue monitoring POs. Recc continued encouragement of pt to consume ONS.
[2021-02-11] MEDS: BARICITINIB 2 MG TABLET 4 MG PO (13:38)
[2021-02-11] MEDS: OXYCODONE IR 10 MG TABLET PO (13:38)
[2021-02-11] MEDS: LORazepam 0.5 MG TABLET PO (13:38)
[2021-02-11] MEDS: LIPASE PROTEASE AMYLASE 2 EACH PO ×2 (13:57→17:27)
[2021-02-11] MEDS: ENOXAPARIN 60 MG/0.6 ML SYRINGE 120 MG SUBCUT (14:02)
[2021-02-11] MEDS: INSULIN LISPRO 100 UNIT/ML 3ML VIAL SUBCUT ×2 (17:19→21:14)
[2021-02-11] MEDS: guaiFENesin ER 600 MG TAB 1200 MG PO (21:10)
[2021-02-11] MEDS: INSULIN GLARGINE 100 UNIT/ML 3ML PEN 15 UNIT SUBCUT (21:13)
[2021-02-12] VITALS (21 sets, daily range): BP systolic 93–135; BP diastolic 52–81; PULSE 58–126; RESP 10–17; TEMP 36.4–36.7; O2SAT 84–100
[2021-02-12] MEDS: SODIUM CHLORIDE 0.9% FLUSH 10 ML IV ×2 (05:10→23:11)
[2021-02-12 06:05] LABS: Hematocrit 25.3 % (41-53); Hemoglobin 8.7 g/dL (13.5-17.5); Mean Corpuscular HGB Conc 34.5 % (30-36); Mean Corpuscular Hemoglobin 34.5 PG (26-34); Mean Corpuscular Volume 100.1 fL (80-100); Platelet Count 70 X10^3/uL (150-400); Red Blood Cell Count 2.53 X10^6/uL (4.5-5.9); Red Cell Distribution Width 23.2 % (11.6-14.8); White Blood Cell Count 3.6 X10^3/uL (4.5-11.0)
--- NOTE | 2021-02-12 06:05 | PC.NURSE ---
7pm-7am Shift Note-Patient has been fatigued and withdrawn, denies pain, anxiety, or respiratory distress. RT decreased FIO2 from 65% to 45%, remains at 60L, SpO2 remains >92%, RR <20, VSS, SR/WPW, no A-fib. Cooperative with small repositioning but didn't want to turn too far, can move on own.
[2021-02-12 06:15] LABS: BUN Creatinine Ratio 38.8 (6-22); Blood Urea Nitrogen 19 mg/dL (9-20); C-Reactive Protein Quant 2.2 mg/dL (<1.0); Calcium 7.8 mg/dL (8.4-10.2); Carbon Dioxide 28 mmol/L (22-32); Chloride 106 mmol/L (98-107); Estimated Glomerular Filt Rate > 60.0 mL/min (>60); Glucose 117 mg/dL (70-100); HEMOLYSIS < 15 (0-50); Potassium 3.7 mmol/L (3.4-5.1); Sodium 134 mmol/L (137-145)
[2021-02-12 06:16] LABS: D Dimer 4875 ng/mL (<230)
[2021-02-12 06:47] LABS: Ferritin 740 ng/mL (18-464)
[2021-02-12] MEDS: cefTRIAXone 1,000 MG in SODIUM CHLORIDE 0.9% 100 ML 200 ML IV (09:01)
[2021-02-12] MEDS: ENOXAPARIN 60 MG/0.6 ML SYRINGE 120 MG SUBCUT (09:02)
[2021-02-12] MEDS: FUROSEMIDE 20 MG/2 ML VIAL IV (09:02)
[2021-02-12] MEDS: DEXAMETHASONE 10 MG/ML VIAL 6 MG IV (09:02)
[2021-02-12] MEDS: BARICITINIB 2 MG TABLET 4 MG PO (09:02)
[2021-02-12] MEDS: METOPROLOL ER 25 MG TABLET 50 MG PO ×2 (09:03→21:31)
[2021-02-12] MEDS: guaiFENesin ER 600 MG TAB 1200 MG PO ×2 (09:03→21:31)
[2021-02-12] MEDS: LOPERAMIDE 2 MG CAPSULE PO (09:50)
[2021-02-12] MEDS: INSULIN LISPRO 100 UNIT/ML 3ML VIAL SUBCUT ×3 (12:32→21:30)
--- NOTE | 2021-02-12 15:22 | P.PN_ITS ---
Subjective Subjective Date Patient Seen: 02/12/21 Time Patient Seen: 08:00 Interval history: He feels fatigued today. He is guarded to how he's doing. He doesnt' feel any more short of breath than he has felt for the last few days; however, he also has not started feeling significantly better. Exam Vital Signs (past 8 hours): - 02/12/21 08:00 02/12/21 09:00 02/12/21 09:05 Temperature 97.6 F Pulse Rate 59 L Respiratory Rate 16 Blood Pressure 135/77 Pulse Oximetry 93 87 L 90 L 02/12/21 12:00 02/12/21 12:49 02/12/21 12:52 Temperature 97.6 F Pulse Rate 73 73 72 Respiratory Rate 17 12 14 Blood Pressure 100/66 103/67 103/67 Pulse Oximetry 92 84 L 91 Fraction of Inspired Oxygen 0.51 Oxygen Delivery Method Heated High Flow Oxygen Flow Rate 60 Narrative Exam Narrative: GEN: no acute distress CV: regular rate and rhythm PULM: diminished, coarse breath sounds ABD: soft, nontender, nondistended, no organomegaly EXT: warm and well perfused with no edema Objective Labs Result Diagrams: 02/12/21 05:10 02/12/21 05:10 Labs: Laboratory Results - last 24 hr 02/12/21 02/12/21 02/12/21 05:10 05:10 05:10 WBC 3.6 L RBC 2.53 L Hgb 8.7 L Hct 25.3 L MCV 100.1 H MCH 34.5 H MCHC 34.5 RDW 23.2 H Plt Count 70 L D-Dimer 4875 H Sodium 134 L Potassium 3.7 Chloride 106 Carbon Dioxide 28 BUN 19 Creatinine 0.49 L Estimated GFR > 60.0 BUN/Creatinine Ratio 38.8 H Glucose 117 H Calcium 7.8 L Ferritin 740 H C-Reactive Protein 2.2 H PFSH Medical History Cholangiocarcinoma COVID-19 vaccine series completed Dqobv-Gftcoigrf-Ookmv syndrome Surgical History History of Whipple procedure Midline sternotomy scar Family History Mother CVA (cerebral vascular accident) Father Lung cancer Social History household members: spouse and family Smoking Status: Former smoker Assessment & Plan Assessment & Plan narrative: Mr. Dai is a 60M admitted with hypoxemic respiratory failure secondary to COVID pneumonia. 1. COVID-19 and superimposed klebsiella, and acute respiratory failure with hypoxia. -patient was vaccinated. -supportive care with pain control, fever suppression, and oxygen to maintain O2 >90% while on supplemental therapy. -currently on heated high flow -sputum cultures with klebsiella, ceftriaxone continued, plan for a 7-10 day course given continued poor respiratory status -continue high flow oxygen, proning, dexamethasone, and remdesivir -barcitinib started -despite these therapies patient continues to decline physically, requiring hi gher levels of oxygen, becoming more fatigued, this is likely due to his poor immune system in setting of cancer and chemotherapy 2. Pancytopenia with recent right femoral DVT diagnosed 3 weeks ago and present on admission, also with prior history of ITP and chronic thrombocytopenia. Pancytopenia likely secondary to chemotherapy, possible COVID is contributing as well. -Patient was self administering enoxaparin 120 mg daily which is held currently. -platelet count is 26 on admission compared to 63 in July 2020. Also has ? ITP based on oncology note that is scanned, though he does not appear to have any chronic medications related to ITP. -Recommendation is when his platelet count increases to over 50, he can resume his anticoagulation with enoxaparin. Consulted with Dr. Goldsmith, Oncologist at [facility]. -have sent a HIT antibody given thrombosis and apparent worsening of thrombo cytopenia and recent initiation of Lovenox. 4T score of 4, however vague presentation and alternative cause could be his acute infection or recent chemo which is more likely. -transfuse for Plt <10, <50 if bleeding develops. No current signs of active bleeding. -restarted his anticoagulation on 02/11 3. Severe hypokalemia, likely in the setting of persistent diarrhea, resolved 4. History of atrial fibrillation, with rvr, resolved -developed afib with rvr on 02/10 and needed increasing doses of metoprolol -episodes of junctional rhythm with bradycardia noted 5. Cholangiocarcinoma, s/p whipple procedure - continue creon - has mets to lung based on oncology note from 6 months ago. Chemo was last done on Thursday 01/25 per patient. - C. diff negative, will add loperamide to try and slow transit time. 6. Diabetes, new diagnosis - A1c 6.6%, glucose elevated recently in setting of decadron therapy for COVID. Recommend dietary changes as an outpatient. - started on sliding scale insulin therapy, AM glucose 171, will continue 5 units of long acting this evening. VTE prophylaxis: SCDs, can resume lovenox as noted above when thrombocytopenia improves. Dispo: unclear discharge given progression Code Status: DNR/DNI, as discussed with patient who names his spouse, Adri as surrogate and POA Quality VTE Deep Vein Thrombosis/Pulmonary Embolism Present on Admission: Yes
[2021-02-12] MEDS: LIPASE PROTEASE AMYLASE 2 EACH PO (17:07)
[2021-02-12] MEDS: DIGOXIN 500 MCG/2 ML AMPUL 250 MCG IV (18:18)
[2021-02-12 18:57] LABS: BUN Creatinine Ratio 35.4 (6-22); Blood Urea Nitrogen 17 mg/dL (9-20); Calcium 7.8 mg/dL (8.4-10.2); Carbon Dioxide 23 mmol/L (22-32); Chloride 103 mmol/L (98-107); Estimated Glomerular Filt Rate > 60.0 mL/min (>60); Glucose 452 mg/dL (70-100); HEMOLYSIS < 15 (0-50); Potassium 3.8 mmol/L (3.4-5.1); Sodium 133 mmol/L (137-145)
--- NOTE | 2021-02-12 19:43 | PC.NURSE ---
Shift Note Pt with increasing oxygen needs this shift, currently at 60L and 60% FIO2. Initially 93% SpO2 but currently running 96-97%. Denies shortness of breath. At 1756 pt noted to be in afib RVR in the 110-120s. BP 90s/50s, denies chest pain, denies palpitations. Dr. Martins notified and new orders received. Labs drawn and digoxin IV administered. Pt converted back to NSR BBB at 1911. Denies pain, resting in room. Port-a-cath needle replaced per protocol without issue.
[2021-02-12] MEDS: INSULIN GLARGINE 100 UNIT/ML 3ML PEN 15 UNIT SUBCUT (21:29)
[2021-02-12] MEDS: METOPROLOL TARTRATE 5 MG/5 ML INJ IV (23:11)
[2021-02-12] MEDS: OXYCODONE IR 10 MG TABLET PO (23:30)
[2021-02-13] VITALS (19 sets, daily range): BP systolic 84–124; BP diastolic 56–79; PULSE 62–109; RESP 10–18; TEMP 36.3–36.8; O2SAT 86–98
--- NOTE | 2021-02-13 00:55 | PC.NURSE ---
Addendum entered by Arcelia Trammell R.N. 02/13/21 07:31: By 0100, HR decreased gradually, was in/out of SR and A-fib, but remained in A-fib CVR, see rhythm strips and vital trends. In am he started to be incontinent of loose stools, Immodium given, Zofran given for nausea, no emesis, 10mg oxycodone given per request. Original Note: 0-Yahir DELAROSA notified that patient went back into A-fib RVR sustaining >110, BP 106/65(81). Order received to give 5mg IV metoprolol. 0-Patient feels short of breath when in A-fib, SpO2 remain >94% on 60L/60% FIO2, RR 14-22, has generalized discomfort, he had been refusing offer of oxycodone or lorazepam, but is now agreeable to 1/2 dose of pain medication, 5mg given and repositioned for comfort.
[2021-02-13] MEDS: SODIUM CHLORIDE 0.9% FLUSH 10 ML IV (05:28)
[2021-02-13 06:12] LABS: Hematocrit 28.4 % (41-53); Hemoglobin 9.6 g/dL (13.5-17.5); Mean Corpuscular HGB Conc 33.9 % (30-36); Mean Corpuscular Hemoglobin 34.2 PG (26-34); Mean Corpuscular Volume 100.7 fL (80-100); Platelet Count 87 X10^3/uL (150-400); Red Blood Cell Count 2.82 X10^6/uL (4.5-5.9); Red Cell Distribution Width 23.7 % (11.6-14.8); White Blood Cell Count 6.4 X10^3/uL (4.5-11.0)
[2021-02-13 06:22] LABS: BUN Creatinine Ratio 43.9 (6-22); Blood Urea Nitrogen 18 mg/dL (9-20); Calcium 7.6 mg/dL (8.4-10.2); Carbon Dioxide 29 mmol/L (22-32); Chloride 104 mmol/L (98-107); Estimated Glomerular Filt Rate > 60.0 mL/min (>60); Glucose 120 mg/dL (70-100); HEMOLYSIS < 15 (0-50); Potassium 3.9 mmol/L (3.4-5.1); Sodium 133 mmol/L (137-145)
[2021-02-13] MEDS: LOPERAMIDE 2 MG CAPSULE PO (06:55)
[2021-02-13] MEDS: ONDANSETRON 4 MG/2 ML INJ IV ×2 (07:05→21:05)
[2021-02-13] MEDS: OXYCODONE IR 10 MG TABLET PO (07:05)
[2021-02-13] MEDS: LIPASE PROTEASE AMYLASE 2 EACH PO ×3 (08:22→17:04)
[2021-02-13] MEDS: INSULIN LISPRO 100 UNIT/ML 3ML VIAL SUBCUT ×2 (08:23→17:02)
[2021-02-13] MEDS: ENOXAPARIN 60 MG/0.6 ML SYRINGE 120 MG SUBCUT (08:25)
[2021-02-13] MEDS: BARICITINIB 2 MG TABLET 4 MG PO (08:25)
[2021-02-13] MEDS: cefTRIAXone 1,000 MG in SODIUM CHLORIDE 0.9% 100 ML 200 ML IV (08:25)
[2021-02-13] MEDS: guaiFENesin ER 600 MG TAB 1200 MG PO (08:25)
[2021-02-13] MEDS: DEXAMETHASONE 10 MG/ML VIAL 6 MG IV (08:26)
[2021-02-13] MEDS: METOPROLOL ER 25 MG TABLET 50 MG PO (08:26)
--- NOTE | 2021-02-13 13:00 | P.PN_ITS ---
Subjective Subjective Date Patient Seen: 02/13/21 Time Patient Seen: 08:00 Interval history: Today he feels mildly improved. He thinks his shortness of breath is less. He has been titrated down slightly on his high flow oxygen, but still remains with significant oxygen requirement. Exam Vital Signs (past 8 hours): - 02/13/21 05:26 02/13/21 07:37 02/13/21 08:00 Temperature 97.9 F Pulse Rate 91 H 77 76 Respiratory Rate 14 14 17 Blood Pressure 116/79 96/70 87/66 L Pulse Oximetry 93 95 90 L 02/13/21 08:45 02/13/21 08:46 02/13/21 09:42 Temperature Pulse Rate 72 Respiratory Rate 16 Blood Pressure Pulse Oximetry 86 L 91 92 02/13/21 11:19 02/13/21 12:00 Temperature 97.5 F L Pulse Rate 76 79 Respiratory Rate 14 18 Blood Pressure 87/66 L 86/61 L Pulse Oximetry 92 88 L Fraction of Inspired Oxygen 0.43 Oxygen Delivery Method Heated High Flow Oxygen Flow Rate 50 Narrative Exam Narrative: GEN: no acute distress CV: regular rate and rhythm PULM: diminished, coarse breath sounds ABD: soft, nontender, nondistended, no organomegaly EXT: warm and well perfused with 1+ edema Objective Labs Result Diagrams: 02/13/21 05:30 02/13/21 05:30 Labs: Laboratory Results - last 24 hr 02/12/21 02/13/21 02/13/21 18:36 05:30 05:30 WBC 6.4 D RBC 2.82 L Hgb 9.6 L Hct 28.4 L MCV 100.7 H MCH 34.2 H MCHC 33.9 RDW 23.7 H Plt Count 87 L Sodium 133 L 133 L Potassium 3.8 3.9 Chloride 103 104 Carbon Dioxide 23 29 BUN 17 18 Creatinine 0.48 L 0.41 L Estimated GFR > 60.0 > 60.0 BUN/Creatinine Ratio 35.4 H 43.9 H Glucose 452 H D 120 H D Calcium 7.8 L 7.6 L Magnesium 2.0 PFSH Medical History Cholangiocarcinoma COVID-19 vaccine series completed Wwyur-Xtvwwoaiu-Ulywj syndrome Surgical History History of Whipple procedure Midline sternotomy scar Family History Mother CVA (cerebral vascular accident) Father Lung cancer Social History household members: spouse and family Smoking Status: Former smoker Assessment & Plan Assessment & Plan narrative: Mr. Dai is a 60M admitted with hypoxemic respiratory failure secondary to COVID pneumonia. 1. COVID-19 and superimposed klebsiella, and acute respiratory failure with hypoxia. -patient was vaccinated. -supportive care with pain control, fever suppression, and oxygen to maintain O2 >90% while on supplemental therapy. -currently on heated high flow -sputum cultures with klebsiella, ceftriaxone continued, and now completed course -continue high flow oxygen, proning, dexamethasone -barcitinib started -remdesivir course completed -despite these therapies patient continues to decline physically, requiring higher levels of oxygen, becoming more fatigued, this is likely due to his poor immune system in setting of cancer and chemotherapy 2. Pancytopenia with recent right femoral DVT diagnosed 3 weeks ago and present on admission, also with prior history of ITP and chronic thrombocytopenia. Pancytopenia likely secondary to chemotherapy, possible COVID is contributing as well. -Patient was self administering enoxaparin 120 mg daily which was initially held -platelet count is 26 on admission compared to 63 in July 2020. Also has ? ITP based on oncology note that is scanned, though he does not appear to have any chronic medications related to ITP. -Recommendation is when his platelet count increases to over 50, he can resume his anticoagulation with enoxaparin. Consulted with Dr. Goldsmith, Oncologist at [facility]. -have sent a HIT antibody given thrombosis and apparent worsening of thrombocytopenia and recent initiation of Lovenox. 4T score of 4, however vague presentation and alternative cause could be his acute infection or recent chemo which is more likely. -transfuse for Plt <10, <50 if bleeding develops. No current signs of active bleeding. -restarted his anticoagulation on 02/11 3. Severe hypokalemia, likely in the setting of persistent diarrhea, resolved 4. History of atrial fibrillation, with rvr, resolved -developed afib with rvr on 02/10 and 02/11 and needed increasing doses of metoprolol -episodes of junctional rhythm with bradycardia noted earlier in hospitalization 5. Cholangiocarcinoma, s/p whipple procedure - continue creon - has mets to lung based on oncology note from 6 months ago. Chemo was last done on Thursday 01/25 per patient. - C. diff negative, will add loperamide to try and slow transit time. 6. Diabetes, new diagnosis - A1c 6.6%, glucose elevated recently in setting of decadron therapy for COVID. Recommend dietary changes as an outpatient. - started on sliding scale insulin therapy, will continue 15 units of long acting this evening. VTE prophylaxis: SCDs, can resume lovenox as noted above when thrombocytopenia improves. Dispo: unclear discharge given progression Code Status: DNR/DNI, as discussed with patient who names his spouse, Adri as surrogate and POA Quality VTE Deep Vein Thrombosis/Pulmonary Embolism Present on Admission: Yes
[2021-02-13] MEDS: INSULIN GLARGINE 100 UNIT/ML 3ML PEN 15 UNIT SUBCUT (20:57)
[2021-02-14] VITALS (18 sets, daily range): BP systolic 103–140; BP diastolic 70–85; PULSE 58–79; RESP 14–22; TEMP 36.6–37; O2SAT 89–96
[2021-02-14] MEDS: SODIUM CHLORIDE 0.9% FLUSH 10 ML IV (00:01)
[2021-02-14] MEDS: LORazepam 2 MG/ML INJ 0.5 MG IV ×2 (00:01→10:32)
--- NOTE | 2021-02-14 06:46 | PC.NURSE ---
[employer] Note-Patient was significantly nauseous at beginning of shift, small frothy yellow emesis, Zofran given at 2100, denied pain. Spoke with SCRAPE GATHERER about IV Ativan prn, patient had been resistant to the Ativan don't like the way it makes me feel but was now agreeable I'll try anything at this point 0.5mg IV Ativan given, effective for nausea and he slept well without desatting, HHF remains at 50L/45% FIO2. No A-fib overnight. Incontinent one small soft formed stool. 225ml sunday UOP in [place]. Patient is very fatigued and withdrawn.
[2021-02-14] MEDS: DEXAMETHASONE 10 MG/ML VIAL 6 MG IV (08:13)
[2021-02-14] MEDS: ENOXAPARIN 100 MG/ML SYRINGE SUBCUT (08:13)
[2021-02-14] MEDS: METOPROLOL ER 25 MG TABLET PO ×2 (08:14→20:56)
[2021-02-14] MEDS: FUROSEMIDE 20 MG TABLET PO (08:15)
[2021-02-14 08:44] LABS: Hematocrit 28.3 % (41-53); Hemoglobin 9.8 g/dL (13.5-17.5); Mean Corpuscular HGB Conc 34.4 % (30-36); Mean Corpuscular Hemoglobin 34.5 PG (26-34); Mean Corpuscular Volume 100.3 fL (80-100); Platelet Count 95 X10^3/uL (150-400); Red Blood Cell Count 2.83 X10^6/uL (4.5-5.9); Red Cell Distribution Width 24.1 % (11.6-14.8); White Blood Cell Count 7.3 X10^3/uL (4.5-11.0)
[2021-02-14 08:57] LABS: Blood Urea Nitrogen 26 mg/dL (9-20); Calcium 7.9 mg/dL (8.4-10.2); Carbon Dioxide 32 mmol/L (22-32); Chloride 101 mmol/L (98-107); Estimated Glomerular Filt Rate > 60.0 mL/min (>60); Glucose 73 mg/dL (70-100); HEMOLYSIS < 15 (0-50); Potassium 4.2 mmol/L (3.4-5.1); Sodium 133 mmol/L (137-145)
--- NOTE | 2021-02-14 11:27 | P.PN_ITS ---
Subjective Subjective Date Patient Seen: 02/14/21 Time Patient Seen: 08:00 Interval history: Today he is fatigued. He has some nausea, no abdominal pain, vomiting, diarrhea. He is short of breath but unchanged from previous days. He has require consistently slightly lower oxygen requirements but remains on heated high flow. Exam Vital Signs (past 8 hours): - 02/14/21 04:00 02/14/21 06:14 02/14/21 08:00 Temperature 97.9 F Pulse Rate 60 62 62 Respiratory Rate 18 15 17 Blood Pressure 137/81 137/81 140/70 Pulse Oximetry 93 94 90 L 02/14/21 09:24 02/14/21 11:17 Temperature Pulse Rate 59 L Respiratory Rate 20 18 Blood Pressure 140/70 Pulse Oximetry 89 L 91 Fraction of Inspired Oxygen 0.43 Oxygen Delivery Method Heated High Flow Oxygen Flow Rate 50 Narrative Exam Narrative: GEN: no acute distress CV: regular rate and rhythm PULM: diminished, coarse breath sounds ABD: soft, nontender, nondistended, no organomegaly EXT: warm and well perfused with 1+ edema Objective Labs Result Diagrams: 02/14/21 08:35 02/14/21 08:35 Labs: Laboratory Results - last 24 hr 02/14/21 02/14/21 08:35 08:35 WBC 7.3 RBC 2.83 L Hgb 9.8 L Hct 28.3 L MCV 100.3 H MCH 34.5 H MCHC 34.4 RDW 24.1 H Plt Count 95 L Sodium 133 L Potassium 4.2 Chloride 101 Carbon Dioxide 32 BUN 26 H Creatinine 0.40 L Estimated GFR > 60.0 BUN/Creatinine Ratio 65.0 H Glucose 73 Calcium 7.9 L [facility] Medical History Cholangiocarcinoma COVID-19 vaccine series completed Ajhhg-Clwkueawj-Sjocm syndrome Surgical History History of Whipple procedure Midline sternotomy scar Family History Mother CVA (cerebral vascular accident) Father Lung cancer Social History household members: spouse and family Smoking Status: Former smoker Assessment & Plan Assessment & Plan narrative: Mr. Dai is a 60M admitted with hypoxemic re spiratory failure secondary to COVID pneumonia. 1. COVID-19 and superimposed klebsiella, and acute respiratory failure with hypoxia. -patient was vaccinated. -supportive care with pain control, fever suppression, and oxygen to maintain O2 >90% while on supplemental therapy. -currently on heated high flow -sputum cultures with klebsiella, ceftriaxone continued, and now completed course -continue high flow oxygen, proning, dexamethasone -barcitinib started -remdesivir course completed after 10 days -despite these therapies patient continues to decline physically, requiring higher levels of oxygen, becoming more fatigued, this is likely due to his poor immune system in setting of cancer and chemotherapy 2. Pancytopenia with recent right femoral DVT diagnosed 3 weeks ago and present on admission, also with prior history of ITP and chronic thrombocytopenia. Pancytopenia likely secondary to chemotherapy, possible COVID is contributing as well. -Patient was self administering enoxaparin 120 mg daily which was initially held -platelet count is 26 on admission compared to 63 in July 2020. Also has ? ITP based on oncology note that is scanned, though he does not appear to have any chronic medications related to ITP. -Recommendation is when his platelet count increases to over 50, he can resume his anticoagulation with enoxaparin. Consulted with Dr. Goldsmith, Oncologist at [facility]. -have sent a HIT antibody given thrombosis and apparent worsening of thrombocytopenia and recent initiation of Lovenox. 4T score of 4, however vague presentation and alternative cause could be his acute infection or recent chemo which is more likely. -transfuse for Plt <10, <50 if bleeding develops. No current signs of active bleeding. -restarted his anticoagulation on 02/11 3. Severe hypokalemia, likely in the setting of persistent diarrhea, resolved 4. History of atrial fibrillation, with rvr, resolved -developed afib with rvr on 02/10 and 02/11 and needed increasing doses of metoprolol -has become slightly bradycardic and in sinus on 02/14 so decreased metoprolol to 25mg BID -episodes of junctional rhythm with bradycardia noted earlier in hospitalization 5. Cholangiocarcinoma, s/p whipple procedure - continue creon - has mets to lung based on oncology note from 6 months ago. Chemo was last done on Thursday 01/25 per patient. - C. diff negative, will add loperamide to try and slow transit time. 6. Diabetes, new diagnosis - A1c 6.6%, glucose elevated recently in setting of decadron therapy for COVID. Recommend dietary changes as an outpatient. - started on sliding scale insulin therapy, will continue 15 units of long acting this evening. VTE prophylaxis: SCDs, can resume lovenox as noted above when thrombocytopenia improves. Dispo: unclear discharge given progression Code Status: DNR/DNI, as discussed with patient who names his spouse, Adri as surrogate and POA Quality VTE Deep Vein Thrombosis/Pulmonary Embolism Present on Admission: Yes
--- NOTE | 2021-02-14 13:07 | DIET.PN ---
Dietary Progress Note RD f/u on this pt c ongoing Covid19 pneumonia. Pts POs continue to range 50-75% of trays with pts dropping off favorite foods that pt is consuming including milkshakes, burgers, fresh fruit. HT: 167.6cm WT: 68kg (-9.4% in 6mo, moderate malnutrition) UBW: 75.7kg BMI: 24.2 Nutrition Diagnosis: Acute on Chronic Moderate Malnutrition r/t difficulty eating and cholangiocarcinoma aeb 9.4% unintentional weight loss in 6mo, POs <50% x5d, active Covid19 pneumonia requiring heated high flow oxygen 65% at 50L. Interventions: 1. Recc continuing easy chew CCD to encourage intake of meal trays. 2. Continue ONS Ensure Max and Glucerna providing 35% kcal needs and 50% protein needs in addition to meal trays, encourage sips of ONS between meals as snacks. Diet Order: CCD easy chew EER: 2,000kcal (30kcal/kg per malnutrition), 95g PRO (1.4g/kg per malnutrition) Monitoring/Evaluations: POs
[2021-02-14] MEDS: LIPASE PROTEASE AMYLASE 2 EACH PO (17:14)
[2021-02-14] MEDS: guaiFENesin ER 600 MG TAB 1200 MG PO (20:54)
[2021-02-14] MEDS: INSULIN GLARGINE 100 UNIT/ML 3ML PEN 15 UNIT SUBCUT (20:55)
[2021-02-14] MEDS: OXYCODONE IR 10 MG TABLET PO (20:56)
[2021-02-15 00:36] VITALS: BP 113/79; PULSE 73; RESP 16; O2SAT 90
[2021-02-15 03:37] VITALS: PULSE 112; RESP 16; O2SAT 88
[2021-02-15 05:59] VITALS: PULSE 89; RESP 16; O2SAT 93
[2021-02-15 07:00] VITALS: BP 89/64; PULSE 67; RESP 22; O2SAT 92
--- NOTE | 2021-02-15 07:39 | PC.NURSE ---
Addendum entered by Neha Bird R.N. 02/15/21 13:24: Pt family at bedside, educated about risks of visiting patient with Covid + status. and daughter understand and accept risk, and are bedside to say goodbyes. Sangita coordinated final rights at bedside. Pt has been drowsy, wakes to touch. Facial grimacing noted with turning and cares this afternoon. Medicated with Morphine 4mg and good effect. Unable to have PO intake, do to drowsiness. Family at bedside and educated about risk of aspiration. Tele d/c and monitors removed for patient comfort and family request. Turning q2 to offload pressure. Addendum entered by Neha Bird R.N. 02/15/21 07:47: [id number]-UPdate to , she will be in soon to see Pt, questions re 2nd visitor, Will have nursing clinical director address at this time. Original Note: Pt more drowsy at 0700 assessment. unable to hold gaze with this RN. BP low, Pt O2 sats remain 88-92. CBG checked 33. Amp of d50 given. Ubaldo is not drawing well this am, lab to collect lab and verify CBG.
[2021-02-15] MEDS: DEXTROSE 50 % IN WATER 25 GM/50 ML SYRINGE IV ×2 (07:40→17:36)
[2021-02-15 08:26] LABS: Hematocrit 31.7 % (41-53); Hemoglobin 10.6 g/dL (13.5-17.5); Mean Corpuscular HGB Conc 33.5 % (30-36); Mean Corpuscular Hemoglobin 34.3 PG (26-34); Mean Corpuscular Volume 102.4 fL (80-100); Platelet Count 97 X10^3/uL (150-400); Red Blood Cell Count 3.09 X10^6/uL (4.5-5.9); Red Cell Distribution Width 24.3 % (11.6-14.8)
[2021-02-15 08:41] LABS: Blood Urea Nitrogen 24 mg/dL (9-20); Calcium 7.6 mg/dL (8.4-10.2); Carbon Dioxide 30 mmol/L (22-32); Chloride 100 mmol/L (98-107); Estimated Glomerular Filt Rate > 60.0 mL/min (>60); Glucose 122 mg/dL (70-100); HEMOLYSIS < 15 (0-50); Potassium 4.3 mmol/L (3.4-5.1); Sodium 132 mmol/L (137-145)
[2021-02-15] MEDS: MORPHINE 4 MG/ML INJ IV (12:54)
--- NOTE | 2021-02-15 14:15 | P.PN_ITS ---
Subjective Subjective Date Patient Seen: 02/15/21 Time Patient Seen: 14:15 Interval history: Today he is fatigued, denies abdominal pain, fever, chills. He has no appetite, energy. He denies abdominal pain, though he just received some morphine. No chest pain. Exam Vital Signs (past 8 hours): - 02/15/21 07:00 Pulse Rate 67 Respiratory Rate 22 Blood Pressure 89/64 L Pulse Oximetry 92 Fraction of Inspired Oxygen 50 Oxygen Delivery Method Heated High Flow Oxygen Flow Rate 61 Narrative Exam Narrative: Gen: Alert but cachectic and ill appearing 60 y.o. male, on high flow nasal cannula HEENT: normocephalic, atraumatic, conjunctiva clear, sclera non-icteric, oral mucosa pink and moist Neck: supple, full ROM, no JVD, trachea is midline Resp: coarse breath sounds bilaterally, no wheezing bilaterally. shallow breaths Chest: Portacath in place on right upper chest, no erythema or induration. CV: RRR, no m/r/g. Abd: soft, non-tender, normoactive BTs Skin: bilateral hand ecchymoses, and possible purplish purpura though just on the dorsum of hands for now. No other rashes noted. Neuro: Alert, fatigued and speech occasionally strong otherwise mumbles incoherently at most times. No focal deficits. profound fatigue. Extremities: moves all 4 extremities Psyche: normal mood and affect. Objective Labs Result Diagrams: 02/15/21 08:07 02/15/21 08:07 Labs: Laboratory Results - last 24 hr 02/15/21 02/15/21 02/15/21 08:07 08:07 08:07 WBC 14.0 H D RBC 3.09 L Hgb 10.6 L Hct 31.7 L MCV 102.4 H MCH 34.3 H MCHC 33.5 RDW 24.3 H Plt Count 97 L Sodium 132 L Potassium 4.3 Chloride 100 Carbon Dioxide 30 BUN 24 H Creatinine 0.46 L Estimated GFR > 60.0 BUN/Creatinine Ratio 3.0 L Glucose 122 H Cancelled Calcium 7.6 L PFSH Medical History Cholangiocarcinoma COVID-19 vaccine series completed Jbhes-Dgfayqonl-Zuopp syndrome Surgical History History of Whipple procedure Midline sternotomy scar Family History Mother CVA (cerebral vascular accident) Father Lung cancer Social History household members: spouse and family Smoking Status: Former smoker Assessment & Plan Assessment & Plan narrative: Mr. Dai is a 60M admitted with hypoxemic respiratory failure secondary to COVID pneumonia. 1. COVID-19 and superimposed klebsiella, and acute respiratory failure with hypoxia. -patient was vaccinated. -supportive care with pain control, fever suppression, and oxygen to maintain O2 >90% while on supplemental therapy. -currently on heated high flow -sputum cultures with klebsiella, ceftriaxone continued, and now completed course -continue high flow oxygen, proning, dexamethasone -barcitinib started, continue x 14 days if able to tolerate PO intake. -remdesivir course completed after 10 days -despite these therapies patient continues to decline physically, requiring higher levels of oxygen, becoming more fatigued, this is likely due to his poor immune system in setting of cancer and chemotherapy. Prognosis is uncertain, but mortality risk is quite high at this time, especially if he cannot tolerate oral intake. family not interested in feeding tube and he is DNR/DNI. - risking leukocytosis today, unclear cause though no overt symptoms at this time. Will continue to monitor. He completed previous course of antibiotic therapy. 2. Pancytopenia with recent right femoral DVT diagnosed 3 weeks ago and present on admission, also with prior history of ITP and chronic thrombocytopenia. Pancytopenia likely secondary to chemotherapy, possible COVID is contributing as well. -Patient was self administering enoxaparin 120 mg daily which was initially held -platelet count is 26 on admission compared to 63 in July 2020. Also has ? ITP based on oncology note that is scanned, though he does not appear to have any chronic medications related to ITP. -Recommendation is when his platelet count increases to over 50, he can resume his anticoagulation with enoxaparin. Consulted with Dr. Goldsmith, Oncologist at [facility]. -have sent a HIT antibody given thrombosis and apparent worsening of thrombocytopenia and recent initiation of Lovenox. 4T score of 4, however vague presentation and alternative cause could be his acute infection or recent chemo which is more likely. This result was much less than the cutoff of 0.4 at .123 and HIT is highly unlikely. -transfuse for Plt <10, <50 if bleeding develops. No current signs of active bleeding. -restarted his anticoagulation on 02/11 3. Severe hypokalemia, likely in the setting of persistent diarrhea, resolved 4. History of atrial fibrillation, with rvr, resolved -developed afib with rvr on 02/10 and 02/11 and needed increasing doses of metoprolol -had become slightly bradycardic and in sinus on 02/14 so decreased metoprolol to 25mg BID -episodes of junctional rhythm with bradycardia noted earlier in hospitalization 5. Cholangiocarcinoma, s/p whipple procedure - continue creon - has mets to lung based on oncology note from 6 months ago. Chemo was last done on Thursday 01/25 per patient. - C. diff negative, added loperamide to try and slow transit time. 6. Diabetes, new diagnosis - A1c 6.6%, glucose elevated recently in setting of decadron therapy for COVID. Recommend dietary changes as an outpatient. - started on sliding scale insulin therapy, will continue 15 units of long acting this evening. VTE prophylaxis: SCDs, can resume lovenox as noted above when thrombocytopenia improves. Dispo: unclear discharge given progression Code Status: DNR/DNI, as discussed with patient who names his spouse, Adri as surrogate and POA Quality VTE Deep Vein Thrombosis/Pulmonary Embolism Present on Admission: Yes MIPS - Admit I confirm the patient?s Advance Care Plan is present, Code status is documented, Surrogate decision maker is in patient?s record [If Yes, STOP here]: Yes
[2021-02-15] MEDS: LORazepam 2 MG/ML INJ 0.5 MG IV (14:52)
--- NOTE | 2021-02-15 16:12 | RT ---
Patient been on HHFNC for my whole shift 60L and 60%. During my shift wasn't checking HHFNC Q2 on patient due from the monitors being removed for patient's comfort and family request this morning. As it sounds from nursing staff patient maybe going off HHFNC today and placed on comfort care.
[2021-02-15 17:31] VITALS: BP 84/54; PULSE 57; RESP 16; TEMP 37.1; O2SAT 81
--- NOTE | 2021-02-15 18:14 | PC.NURSE ---
Addendum entered by Maisha Lazaro R.N. 02/15/21 22:40: 2200- Patient is resting comfortably and continues to state he does not need pain medication. Patient insulin held due to low blood glucose. ICU TECH Elias aware. Respirations remain 16-20. Will monitor. Original Note: 1730- Decreased Blood Glucose patient treated per orders. Repeat Blood Glucose 162. Patient stable at this time Dr. Willams aware.
[2021-02-15 22:32] VITALS: RESP 18
[2021-02-16] VITALS (15 sets, daily range): BP systolic 89–108; BP diastolic 61–72; PULSE 72–114; RESP 16–27; TEMP 36.7–36.9; O2SAT 83–97
--- NOTE | 2021-02-16 06:33 | PC.NURSE ---
Pt. alert to self and place, lethargic, afebrile, remains on heated hi flow at 60L, 60% Fi02. Lungs with fine crackles to left lobes, diminished on the right. Munoz with 350 clear sunday output. Cont. supportive care.
--- NOTE | 2021-02-16 06:53 | PC.NURSE ---
Cleared 70.6 ml on PCEA pump, new bag hang with 5 ml left in bag and wasted with Varsha, nurse coordinator. Pyxis is not allowing us to waste the 5 ml but for the whole vial.
[2021-02-16] MEDS: BARICITINIB 2 MG TABLET 4 MG PO (08:36)
[2021-02-16] MEDS: SODIUM CHLORIDE 0.9% FLUSH 10 ML IV (08:36)
[2021-02-16] MEDS: guaiFENesin ER 600 MG TAB 1200 MG PO ×2 (08:37→20:33)
[2021-02-16] MEDS: DEXAMETHASONE 10 MG/ML VIAL 6 MG IV (08:37)
[2021-02-16] MEDS: LIPASE PROTEASE AMYLASE 2 EACH PO ×3 (08:38→17:27)
[2021-02-16] MEDS: LORazepam 0.5 MG TABLET PO (10:34)
[2021-02-16] MEDS: ONDANSETRON 4 MG/2 ML INJ IV (10:52)
[2021-02-16] MEDS: METOPROLOL ER 25 MG TABLET PO ×2 (11:11→20:31)
[2021-02-16] MEDS: ENOXAPARIN 100 MG/ML SYRINGE SUBCUT (11:12)
[2021-02-16] MEDS: MORPHINE 4 MG/ML INJ IV ×2 (12:08→18:27)
[2021-02-16] MEDS: METOCLOPRAMIDE 10 MG/2 ML INJ 5 MG IV (12:08)
--- NOTE | 2021-02-16 12:42 | P.PN_ITS ---
Subjective Subjective Date Patient Seen: 02/16/21 Time Patient Seen: 12:42 Interval history: Today he is fatigued, feels warm. denies abdominal pain, fever, chills. He has no appetite, energy. No chest pain. Slightly more alert today, able to get his medications in. His O2 sat is 89% on current heated high flow settings. Exam Vital Signs (past 8 hours): - 02/16/21 06:11 02/16/21 08:15 02/16/21 11:15 Temperature 98.5 F Pulse Rate 72 113 H Respiratory Rate 18 21 27 H Blood Pressure 90/61 89/61 L Pulse Oximetry 92 92 Fraction of Inspired Oxygen 60 Oxygen Delivery Method Heated High Flow Oxygen Flow Rate 60 Narrative Exam Narrative: Gen: Alert but cachectic, fatigued, and ill appearing 60 y.o. male, on high flow nasal cannula HEENT: normocephalic, atraumatic, conjunctiva clear, sclera non-icteric, oral mucosa pink and moist Neck: supple, full ROM, no JVD, trachea is midline Resp: coarse breath sounds bilaterally, no wheezing bilaterally. shallow breaths Chest: Portacath in place on right upper chest, no erythema or induration. CV: RRR, no m/r/g. Abd: soft, non-tender, normoactive BTs Neuro: Alert, fatigued and speech occasionally strong otherwise mumbles incoherently at most times. No focal deficits. profound fatigue. Extremities: moves all 4 extremities Psyche: normal mood and affect. Objective Labs Result Diagrams: 02/15/21 08:07 02/15/21 08:07 [facility] Medical History Cholangiocarcinoma COVID-19 vaccine series completed Stiwn-[id number]-Wepmh syndrome Surgical History History of Whipple procedure Midline sternotomy scar Family History Mother CVA (cerebral vascular accident) Father Lung cancer Social History household members: spouse and family Smoking Status: Former smoker Assessment & Plan Assessment & Plan narrative: Mr. Dai is a 60M admitted with hypoxemic respiratory failure secondary to COVID pneumonia. 1. COVID-19 and superimposed klebsiella, and acute respiratory failure with hypoxia. -patient was vaccinated. -supportive care with pain control, fever suppression, and oxygen to maintain O2 >90% while on supplemental therapy. -currently on heated high flow -sputum cultures with klebsiella, ceftriaxone continued, and now completed course -continue high flow oxygen, proning if able. Completed steroid course. -barcitinib started, continue x 14 days if able to tolerate PO intake. -remdesivir course completed after 10 days -despite these therapies patient continues to decline physically, requiring higher levels of oxygen, becoming more fatigued, this is likely due to his poor immune system in setting of cancer and chemotherapy. Prognosis is uncertain, but mortality risk is quite high at this time, especially if he cannot tolerate oral intake. family not interested in feeding tube and he is DNR/DNI. - risking leukocytosis, unclear cause though no overt symptoms at this time. Will continue to monitor. He completed previous course of antibiotic therapy. No current fever. 2. Pancytopenia with recent right femoral DVT diagnosed 3 weeks ago and present on admission, also with prior history of ITP and chronic thrombocytopenia. Pancytopenia likely secondary to chemotherapy, possible COVID is contributing as well. -Patient was self administering enoxaparin 120 mg daily which was initially held -platelet count is 26 on admission compared to 63 in July 2020. Also has ? ITP based on oncology note that is scanned, though he does not appear to have any chronic medications related to ITP. -Recommendation is when his platelet count increases to over 50, he can resume his anticoagulation with enoxaparin. Consulted with Dr. Goldsmith, Oncologist at [facility]. -have sent a HIT antibody given thrombosis and apparent worsening of thrombocytopenia and recent initiation of Lovenox. 4T score of 4, however vague presentation and alternative cause could be his acute infection or recent chemo which is more likely. This result was much less than the cutoff of 0.4 at .123 and HIT is highly unlikely. -transfuse for Plt <10, <50 if bleeding develops. No current signs of active bleeding. -restarted his anticoagulation on 02/11 3. Severe hypokalemia, likely in the setting of persistent diarrhea, resolved 4. paroxysmal atrial fibrillation, with rvr, resolved -developed afib with rvr on 02/10 and 02/11 and needed increasing doses of metoprolol -had become slightly bradycardic and in sinus on 02/14 so decreased metoprolol to 25mg BID -episodes of junctional rhythm with bradycardia noted earlier in hospitalization -again in afib as of 02/16. 5. Cholangiocarcinoma, s/p whipple procedure - continue creon - has mets to lung based on oncology note from 6 months ago. Chemo was last done on Thursday 01/25 per patient. - C. diff negative, added loperamide to try and slow transit time. 6. Diabetes, new diagnosis - A1c 6.6%, glucose elevated recently in setting of decadron therapy for COVID. Recommend dietary changes as an outpatient. - started on sliding scale insulin therapy, will continue 15 units of long acting this evening. VTE prophylaxis: SCDs, can resume lovenox as noted above when thrombocytopenia improves. Dispo: unclear discharge given progression. Code Status: DNR/DNI, as discussed with patient who names his spouse, Adri as surrogate and POA Quality VTE Deep Vein Thrombosis/Pulmonary Embolism Present on Admission: Yes
[2021-02-16] MEDS: INSULIN LISPRO 100 UNIT/ML 3ML VIAL SUBCUT ×2 (13:19→17:23)
--- NOTE | 2021-02-16 15:36 | CM.DPNOTE ---
DCP Note According to conversation w/Dr Hidalgo this morning, patient and family have not requested full comfort management, so treatment (heated high flow) continues. Patient complains of feeling fatigued and continues to decline physically, according to Dr Hidalgo; mortality risk is quite high at this time, especially if he cannot tolerate oral intake. family not interested in feeding tube and he is DNR/DNI. Prognosis guarded at this time, will continue to follow closely in case [employer] team can be of support to patient and/or family. JW
[2021-02-16] MEDS: LORazepam 2 MG/ML INJ 0.5 MG IV (18:27)
--- NOTE | 2021-02-16 19:37 | PC.NURSE ---
1900: Pt. alert to self and place, lethargic, afebrile, remains on heated hi flow at 60L, 60% Fi02. Lungs with fine crackles to left lobes, diminished on the right. Cont. supportive care. Family at the bedside, requesting MD consult re tube feedings. Hospitalist notified of families wishes.
[2021-02-16] MEDS: LOPERAMIDE 2 MG CAPSULE PO (20:33)
[2021-02-16] MEDS: INSULIN GLARGINE 100 UNIT/ML 3ML PEN 8 UNIT SUBCUT (20:33)
--- NOTE | 2021-02-16 21:12 | PC.NURSE ---
Brief changed, small amount liquid stool noted. Alevyn dressing applied to small area of blanchable redness on coccyx.
--- NOTE | 2021-02-16 21:28 | PC.NURSE ---
checked O2 Sats - 97% on 60L/60%, Resp therapy here to adjust setting, placed on 40L/40%, Sats maintained at 94%
[2021-02-17] VITALS (15 sets, daily range): BP systolic 91–126; BP diastolic 50–75; PULSE 71–114; RESP 16–26; TEMP 36.3–36.6; O2SAT 73–96
[2021-02-17 05:56] LABS: Add Manual Diff / Slide Review NO; Basophils Absolute Auto 100 /uL (0-100); Basophils Percent Auto 0.5 % (0-2); Eosinophils Absolute Auto 0 /uL (0-450); Eosinophils Percent Auto 0.1 % (2-4); Hematocrit 27.7 % (41-53); Hemoglobin 9.4 g/dL (13.5-17.5); Lymphocytes Absolute Auto 400 /uL (1100-4500); Lymphocytes Percent Auto 3.8 % (25-40); Mean Corpuscular HGB Conc 33.8 % (30-36); Mean Corpuscular Volume 103.4 fL (80-100); Monocytes Absolute Auto 1000 /uL (0-900); Monocytes Percent Auto 10.3 % (3-14); Neutrophils Absolute Auto 8600 /uL (1500-7000); Neutrophils Percent Auto 85.3 % (50-75); Platelet Count 89 X10^3/uL (150-400); Red Blood Cell Count 2.68 X10^6/uL (4.5-5.9); Red Cell Distribution Width 24.1 % (11.6-14.8); White Blood Cell Count 10.1 X10^3/uL (4.5-11.0)
[2021-02-17 06:04] LABS: Alanine Aminotransferase 28 IU/L (<50); Albumin 2.1 g/dL (3.5-5.0); Albumin Globulin Ratio 0.7 (1.0-2.8); Alkaline Phosphatase 130 U/L (38-126); Aspartate Aminotransferase 42 IU/L (17-59); BUN Creatinine Ratio 63.3 (6-22); Bilirubin Total 1.1 mg/dL (0.2-1.3); Blood Urea Nitrogen 31 mg/dL (9-20); Calcium 7.9 mg/dL (8.4-10.2); Carbon Dioxide 32 mmol/L (22-32); Chloride 100 mmol/L (98-107); Estimated Glomerular Filt Rate > 60.0 mL/min (>60); Glucose 149 mg/dL (70-100); HEMOLYSIS < 15 (0-50); Magnesium 2.3 mg/dL (1.6-2.3); Potassium 4.3 mmol/L (3.4-5.1); Sodium 132 mmol/L (137-145); Total Protein 5.1 g/dL (6.3-8.2)
[2021-02-17 06:06] LABS: C-Reactive Protein Quant 6.6 mg/dL (<1.0)
[2021-02-17 06:20] LABS: Erythrocyte Sedimentation Rate 34 MM/HR (0-15)
[2021-02-17 06:22] LABS: Platelet Estimate Decreased on smear; Poikilocytosis 1+
[2021-02-17 06:23] LABS: Anisocytosis 2+
[2021-02-17] MEDS: METOPROLOL ER 25 MG TABLET PO ×2 (08:05→20:04)
[2021-02-17] MEDS: guaiFENesin ER 600 MG TAB 1200 MG PO ×2 (08:05→20:03)
[2021-02-17] MEDS: DEXAMETHASONE 10 MG/ML VIAL 6 MG IV (08:05)
[2021-02-17] MEDS: SODIUM CHLORIDE 0.9% FLUSH 10 ML IV ×2 (08:06→10:00)
[2021-02-17] MEDS: INSULIN LISPRO 100 UNIT/ML 3ML VIAL SUBCUT ×4 (08:08→21:15)
[2021-02-17] MEDS: BARICITINIB 2 MG TABLET 4 MG PO (08:09)
[2021-02-17] MEDS: LIPASE PROTEASE AMYLASE 2 EACH PO ×3 (08:09→16:44)
[2021-02-17] MEDS: ENOXAPARIN 100 MG/ML SYRINGE SUBCUT (08:15)
[2021-02-17] MEDS: ONDANSETRON 4 MG/2 ML INJ IV (10:00)
--- NOTE | 2021-02-17 10:25 | PC.NURSE ---
Pt noted to be pushing his overbed table away, sitting forward with O2 removed. Pt states he feels out of sorts. On assessment, pt states I feel sick but is unable to describe the way he feels. He denies any pain. Placed O2 back on. Checked O2 sat which showed 67% with good pleth. BP 103/72 HR 119 RR 25. Administered 100% O2 flush x2 which recovered sats to 92% within 3 minutes. Pt states he feels confused. Provided reoriented to place/time/situation. Explained to pt if he continues to remove O2, he will have increasing difficulties in recovering his oxygen level and that may result in . He is agreeable at this time to leave O2 in place. He would like to get OOB for a BM. RR 22 and SPO2 ranging 88-92%. Assisted pt OOB. While sitting on BSC, pt again removed O2 while trying to have BM and refusing to put nasal prongs back in place at this time. Placed O2 @15L NRB at this time to administered some O2 vs none. Pt noted to have sats sustained in the 70s%. Placed nasal prongs back in place, administered 100% O2 flush x3 and assisted pt back to bed. Sats sustaining low 80s%. Instructed pt to deep breathe and increased fio2 to 50%. Pt c/o nausea, dizziness, and feeling generally unwell. Asking for his . Assessed VS prior to leaving bedside: BP 96/65 HR 89 RR 22 SPO2 90% on HHFNC 40L 50% FIO2. Pt reports feeling a little better after 10 minutes of resting and zofran. Updated RT Meliza in fio2 change. Will call per pt request.
--- NOTE | 2021-02-17 14:15 | PM.PN.1 ---
Subjective Subjective Date Patient Seen: 02/17/21 Time Patient Seen: 14:15 Interval history: Today he feels a bit stronger. now more confused per family. Thinks he is at [facility], unclear as to the current year. He was able to eat some today, but not much. Family states he usually drinks boost at home. Exam Vital Signs (past 8 hours): - 02/17/21 08:04 02/17/21 09:40 02/17/21 09:55 Temperature 97.7 F Pulse Rate 71 114 H 101 H Respiratory Rate 21 26 H 26 H Blood Pressure 117/75 Pulse Oximetry 88 L 73 L 81 L 02/17/21 10:15 02/17/21 12:00 02/17/21 12:30 Temperature 97.8 F Pulse Rate 81 71 73 Respiratory Rate 24 19 Blood Pressure 107/69 Pulse Oximetry 88 L 96 Fraction of Inspired Oxygen 50 Oxygen Delivery Method Heated High Flow Oxygen Flow Rate 40 Narrative Exam Narrative: Gen: Alert but cachectic, fatigued, and ill appearing 60 y.o. male, on high flow nasal cannula HEENT: normocephalic, atraumatic, conjunctiva clear, sclera non-icteric, oral mucosa pink and moist Neck: supple, full ROM, no JVD, trachea is midline Resp: coarse breath sounds bilaterally, no wheezing bilaterally. shallow breaths Chest: Portacath in place on right upper chest, no erythema or induration. CV: RRR, no m/r/g. Abd: soft, non-tender, normoactive BTs Neuro: Alert, fatigued. Oriented to person and hospital. No focal deficits. Extremities: 2+ pedal edema bilaterally, no joint effusions Psyche: normal mood and affect. Objective Labs Result Diagrams: 02/17/21 05:40 02/17/21 05:40 Labs: Laboratory Results - last 24 hr 02/17/21 02/17/21 02/17/21 05:40 05:40 05:40 WBC 10.1 RBC 2.68 L Hgb 9.4 L Hct 27.7 L MCV 103.4 H MCH 35.0 H MCHC 33.8 RDW 24.1 H Plt Count 89 L Neut % (Auto) 85.3 H Lymph % (Auto) 3.8 L Saline % (Auto) 10.3 Eos % (Auto) 0.1 L Baso % (Auto) 0.5 Neut # (Auto) 8600 H Lymph # (Auto) 400 L Saline # (Auto) 1000 H Eos # (Auto) 0 Baso # (Auto) 100 Platelet Estimate Decreased on smear RBC Morphology See below Poikilocytosis 1+ H Anisocytosis 2+ H ESR 34 H Sodium 132 L Potassium 4.3 Chloride 100 Carbon Dioxide 32 BUN 31 H Creatinine 0.49 L Estimated GFR > 60.0 BUN/Creatinine Ratio 63.3 H Glucose 149 H Calcium 7.9 L Magnesium 2.3 Total Bilirubin 1.1 AST 42 ALT 28 Alkaline Phosphatase 130 H C-Reactive Protein Total Protein 5.1 L Albumin 2.1 L Globulin 3.0 Albumin/Globulin Ratio 0.7 L 02/17/21 05:40 WBC RBC Hgb Hct MCV MCH MCHC RDW Plt Count Neut % (Auto) Lymph % (Auto) Saline % (Auto) Eos % (Auto) Baso % (Auto) Neut # (Auto) Lymph # (Auto) Saline # (Auto) Eos # (Auto) Baso # (Auto) Platelet Estimate RBC Morphology Poikilocytosis Anisocytosis ESR Sodium Potassium Chloride Carbon Dioxide BUN Creatinine Estimated GFR BUN/Creatinine Ratio Glucose Calcium Magnesium Total Bilirubin AST ALT Alkaline Phosphatase C-Reactive Protein 6.6 H Total Protein Albumin Globulin Albumin/Globulin Ratio [facility] Medical History Cholangiocarcinoma COVID-19 vaccine series completed Qevuy-Bwpfkxavg-Edxev syndrome Surgical History History of Whipple procedure Midline sternotomy scar Family History Mother CVA (cerebral vascular accident) Father Lung cancer Social History household members: spouse and family Smoking Status: Former smoker Assessment & Plan Assessment & Plan narrative: Mr. Dai is a 60M admitted with hypoxemic respiratory failure secondary to COVID pneumonia. 1. COVID-19 and superimposed klebsiella, and acute respiratory failure with hypoxia. -patient was vaccinated. -supportive care with pain control, fever suppression, and oxygen to maintain O2 >90% while on supplemental therapy. -currently on heated high flow -sputum cultures with klebsiella, ceftriaxone continued, and now completed course -continue high flow oxygen, proning if able. Completed steroid course. -barcitinib started, continue x 14 days as able to tolerate PO intake. -remdesivir course completed after 10 days -despite these therapies patient continues to decline physically, requiring higher levels of oxygen, becoming more fatigued, this is likely due to his poor immune system in setting of cancer and chemotherapy. Prognosis is uncertain, but mortality risk is quite high at this time, especially if he cannot tolerate oral intake. family not interested in feeding tube and he is DNR/DNI. - risking leukocytosis on 02/15 briefly but now improved, unclear cause though no overt symptoms at the time. Will continue to monitor. He completed previous course of antibiotic therapy. No current fevers. 2. Pancytopenia with recent right femoral DVT diagnosed 3 weeks ago and present on admission, also with prior history of ITP and chronic thrombocytopenia. Pancytopenia likely secondary to chemotherapy, possible COVID infection is contributing as well. -Patient was self administering enoxaparin 120 mg daily which was initially held -platelet count is 26 on admission compared to 63 in July 2020. Also has ? ITP based on oncology note that is scanned, though he does not appear to have any chronic medications related to ITP. -Recommendation was when his platelet count increases to over 50, he can resume his anticoagulation with enoxaparin. Consulted with Dr. Goldsmith, Oncologist at [facility]. -sent a HIT antibody given thrombosis and apparent worsening of thrombocytopenia and recent initiation of Lovenox. 4T score of 4, however vague presentation and alternative cause could be his acute infection or recent chemo which is more likely. This result was much less than the cutoff of 0.4 at .123 and HIT is highly unlikely. -transfuse for Plt <10, <50 if bleeding develops. No current signs of active bleeding. -restarted anticoagulation on 02/11 when thrombocytopenia improved. 3. Severe hypokalemia, likely in the setting of persistent diarrhea, resolved 4. paroxysmal atrial fibrillation, with rvr, resolved -developed afib with rvr on 02/10 and 02/11 and needed increasing doses of metoprolol -had become slightly bradycardic and in sinus on 02/14 so decreased metoprolol to 25mg BID -episodes of junctional rhythm with bradycardia noted earlier in hospitalization -again in afib as of 02/16 which improved the following day with continued oral medication. 5. Cholangiocarcinoma, s/p whipple procedure - continue creon - has mets to lung based on oncology note from 6 months ago. Chemo was last done on Thursday 01/25 per patient. - C. diff negative, added loperamide to try and slow transit time. - increased carbohydrate allowance to encourage additional nutrition. 6. Diabetes, new diagnosis - A1c 6.6%, glucose elevated recently in setting of decadron therapy for COVID. Recommend dietary changes as an outpatient. - started on sliding scale insulin therapy, will continue 15 units of long acting this evening. 7. Acute toxic metabolic encephalopathy. - likely secondary to ICU delirium, in combination with steroids and opiate pain medications. No focal deficits but will check head CT to rule out metastases if he comes off of heated high flow. - continue to monitor - encourage PO nutrition. sleep during the night, awake during the day. VTE prophylaxis: SCDs, can resume lovenox as noted above when thrombocytopenia improves. Dispo: unclear discharge given progression. Code Status: DNR/DNI, as discussed with patient who names his spouse, Adri as surrogate and POA COVID-19 COVID-19 status: Negative Quality VTE Deep Vein Thrombosis/Pulmonary Embolism Present on Admission: Yes
[2021-02-17] MEDS: INSULIN GLARGINE 100 UNIT/ML 3ML PEN 8 UNIT SUBCUT (20:03)
[2021-02-17] MEDS: OXYCODONE IR 5 MG TABLET PO (20:04)
--- NOTE | 2021-02-17 22:08 | PC.NURSE ---
end of shift note: Pt states he feels slightly better, homesick and endorses depression. Today was his sons birthday and SPO2 96% on 40L40% HHFNC. Allevyn placed to both heels over blanchable areas
[2021-02-18] VITALS (18 sets, daily range): BP systolic 92–135; BP diastolic 58–80; PULSE 71–115; RESP 14–22; TEMP 36.2–37; O2SAT 88–96
--- NOTE | 2021-02-18 00:51 | PC.NURSE ---
Addendum entered by Maisha Lazaro R.N. 02/18/21 06:11: 0600- Patient repositioned and labs drawn via port. Patient saturation on 40 liter and 40% only 83%. Patient cannula in place. Respiratory Therapy notified and Fi02 increased to 60% and 40Liter. Saturations 92%. Patient awake alert and cooperative with care. Original Note: 0030- Patient is taking his oxygen off periodically. When asked why he is removing the cannula patient is unable to state why. Patient states he knows he needs the oxygen and understands he should be leaving the cannula in place. Saturation on 40 liters and 40% FI02 is 93%. Patient assessed and repositioned for comfort. Patient denies pain. Will monitor.
[2021-02-18] MEDS: LORazepam 0.5 MG TABLET PO ×2 (01:17→16:50)
[2021-02-18 06:19] LABS: Add Manual Diff / Slide Review NO; Basophils Absolute Auto 0 /uL (0-100); Basophils Percent Auto 0.2 % (0-2); Eosinophils Absolute Auto 0 /uL (0-450); Hemoglobin 9.3 g/dL (13.5-17.5); Lymphocytes Absolute Auto 400 /uL (1100-4500); Lymphocytes Percent Auto 3.5 % (25-40); Mean Corpuscular HGB Conc 33.4 % (30-36); Mean Corpuscular Hemoglobin 34.6 PG (26-34); Mean Corpuscular Volume 103.5 fL (80-100); Monocytes Absolute Auto 1100 /uL (0-900); Monocytes Percent Auto 10.2 % (3-14); Neutrophils Absolute Auto 9600 /uL (1500-7000); Neutrophils Percent Auto 86.1 % (50-75); Platelet Count 101 X10^3/uL (150-400); Red Cell Distribution Width 23.6 % (11.6-14.8); White Blood Cell Count 11.1 X10^3/uL (4.5-11.0)
[2021-02-18 06:25] LABS: Alanine Aminotransferase 34 IU/L (<50); Albumin 2.1 g/dL (3.5-5.0); Albumin Globulin Ratio 0.7 (1.0-2.8); Alkaline Phosphatase 129 U/L (38-126); Aspartate Aminotransferase 48 IU/L (17-59); BUN Creatinine Ratio 72.9 (6-22); Bilirubin Total 0.8 mg/dL (0.2-1.3); Blood Urea Nitrogen 35 mg/dL (9-20); Calcium 7.9 mg/dL (8.4-10.2); Carbon Dioxide 32 mmol/L (22-32); Chloride 98 mmol/L (98-107); Estimated Glomerular Filt Rate > 60.0 mL/min (>60); Globulin 3.2 g/dL (1.7-4.1); Glucose 157 mg/dL (70-100); HEMOLYSIS < 15 (0-50); Magnesium 2.2 mg/dL (1.6-2.3); Potassium 4.2 mmol/L (3.4-5.1); Sodium 131 mmol/L (137-145); Total Protein 5.3 g/dL (6.3-8.2)
[2021-02-18 07:02] LABS: Anisocytosis 2+; Poikilocytosis 1+
[2021-02-18] MEDS: HYDROCORTISONE 10 MG TABLET PO (08:16)
[2021-02-18] MEDS: ENOXAPARIN 100 MG/ML SYRINGE SUBCUT (08:17)
[2021-02-18] MEDS: guaiFENesin ER 600 MG TAB 1200 MG PO ×2 (08:17→21:37)
[2021-02-18] MEDS: METOPROLOL ER 25 MG TABLET PO ×2 (08:17→21:38)
[2021-02-18] MEDS: BARICITINIB 2 MG TABLET 4 MG PO (08:17)
[2021-02-18] MEDS: LIPASE PROTEASE AMYLASE 2 EACH PO ×3 (08:19→16:50)
[2021-02-18] MEDS: INSULIN LISPRO 100 UNIT/ML 3ML VIAL SUBCUT ×2 (08:19→16:54)
--- NOTE | 2021-02-18 15:14 | DIET.PN ---
Dietary Progress Note RD f/u on this pt c ongoing Covid19 pneumonia on LOS day 17. Per nursing pts bringing in favorite foods for pt. RD spoke c pts today on phone. She states pt drinking all of ONS when she is present. Per nursing, pt refusing most POs when not present with weekend POs 0-5%. Hospitalist liberalizing pts diet to [facility] large and kitchen to send fresh fruit and veggies per pt preference to encourage PO intake for strength and healing. HT: 167.6cm WT: 67kg (-12% in 6mo, severe malnutrition) UBW: 75.7kg BMI: 23.8 Nutrition Diagnosis: Acute on Chronic Severe Malnutrition r/t difficulty eating and cholangiocarcinoma aeb 12% unintentional weight loss in 6mo, POs <50% x10d, active Covid19 pneumonia on LOS day 17 requiring heated high flow oxygen 65% at 50L, pt refusing most meals unless present. Interventions: 1. Encouraged pts to help him take small sips and bites throughout the day when she is onsite and continue bringing in his favorite foods and ONS Boost per pt preference. 2. Continue ONS Ensure Max and Glucerna providing 35% kcal needs and 50% protein needs in addition to meal trays, encourage sips of ONS between meals as snacks. 3. Trialing chocolate banana yogurt smoothie this evening with dinner meal for tolerance and likability. Diet Order: CCD 1/2 portions EER: 2,000kcal (30kcal/kg per malnutrition), 95g PRO (1.4g/kg per malnutrition) Monitoring/Evaluations: POs
--- NOTE | 2021-02-18 15:30 | PM.PN.1 ---
Subjective Subjective Date Patient Seen: 02/18/21 Time Patient Seen: 15:30 Interval history: Today he feels a bit stronger. improved confusion today. He was able to eat. No chest pain. Overnight took off supplemental O2 to go to the bathroom and had prolonged desatruation, has spent most of the day trying to reduce settings back to 40% and 40L where he was yesterday, currently on 50/50. Exam Vital Signs (past 8 hours): - 02/18/21 07:45 02/18/21 07:50 02/18/21 09:01 Temperature 98.1 F Pulse Rate 101 H 103 H Respiratory Rate 20 19 20 Blood Pressure 103/75 Pulse Oximetry 90 L 88 L 93 02/18/21 09:46 02/18/21 13:00 02/18/21 14:29 Temperature Pulse Rate 87 77 Respiratory Rate 20 20 20 Blood Pressure Pulse Oximetry 94 93 92 Fraction of Inspired Oxygen 60 Oxygen Delivery Method Heated High Flow Oxygen Flow Rate 40 Narrative Exam Narrative: Gen: Alert but cachectic, fatigued, and ill appearing 60 y.o. male, on high flow nasal cannula HEENT: normocephalic, atraumatic, conjunctiva clear, sclera non-icteric, oral mucosa pink and moist Neck: supple, full ROM, no JVD, trachea is midline Resp: coarse breath sounds bilaterally, no wheezing bilaterally. shallow breaths Chest: Portacath in place on right upper chest, no erythema or induration. CV: RRR, no m/r/g. Abd: soft, non-tender, normoactive BTs Neuro: Alert, fatigued. Oriented to person and hospital. No focal deficits. Extremities: 2+ pedal edema bilaterally, no joint effusions Psyche: normal mood and affect. Objective Labs Result Diagrams: 02/18/21 06:00 02/18/21 06:00 Labs: Laboratory Results - last 24 hr 02/18/21 02/18/21 06:00 06:00 WBC 11.1 H RBC 2.70 L Hgb 9.3 L Hct 28.0 L MCV 103.5 H MCH 34.6 H MCHC 33.4 RDW 23.6 H Plt Count 101 L Neut % (Auto) 86.1 H Lymph % (Auto) 3.5 L [place] % (Auto) 10.2 Eos % (Auto) 0.0 L Baso % (Auto) 0.2 Neut # (Auto) 9600 H Lymph # (Auto) 400 L [place] # (Auto) 1100 H Eos # (Auto) 0 Baso # (Auto) 0 RBC Morphology Not Reportable Poikilocytosis 1+ H Anisocytosis 2+ H Sodium 131 L Potassium 4.2 Chloride 98 Carbon Dioxide 32 BUN 35 H Creatinine 0.48 L Estimated GFR > 60.0 BUN/Creatinine Ratio 72.9 H Glucose 157 H Calcium 7.9 L Magnesium 2.2 Total Bilirubin 0.8 AST 48 ALT 34 Alkaline Phosphatase 129 H Total Protein 5.3 L Albumin 2.1 L Globulin 3.2 Albumin/Globulin Ratio 0.7 L PFSH Medical History Cholangiocarcinoma COVID-19 vaccine series completed Azoum-Jennqdtfy-Cnccr syndrome Surgical History History of Whipple procedure Midline sternotomy scar Family History Mother CVA (cerebral vascular accident) Father Lung cancer Social History household members: spouse and family Smoking Status: Former smoker Assessment & Plan Assessment & Plan narrative: Mr. Dai is a 60M admitted with hypoxemic respiratory failure secondary to COVID pneumonia. 1. COVID-19 and superimposed klebsiella, and acute respiratory failure with hypoxia. -patient was vaccinated. -supportive care with pain control, fever suppression, and oxygen to maintain O2 >90% while on supplemental therapy. -currently on heated high flow -sputum cultures with klebsiella, ceftriaxone continued, and now completed course -continue high flow oxygen, proning if able. Completed steroid course. -barcitinib started, continue x 14 days as able to tolerate PO intake. -remdesivir course completed after 10 days -despite these therapies patient continues to decline physically, requiring higher levels of oxygen, becoming more fatigued, this is likely due to his poor immune system in setting of cancer and chemotherapy. Prognosis is uncertain, but mortality risk is quite high at this time, especially if he cannot tolerate oral intake. family not interested in feeding tube and he is DNR/DNI. - risking leukocytosis on 02/15 briefly but now improved, unclear cause though no overt symptoms at the time. Will continue to monitor. He completed previous course of antibiotic therapy. No current fevers. 2. Pancytopenia with recent right femoral DVT diagnosed 3 weeks ago and present on admission, also with prior history of ITP and chronic thrombocytopenia. Pancytopenia likely secondary to chemotherapy, possible COVID infection is contributing as well. -Patient was self administering enoxaparin 120 mg daily which was initially held -platelet count is 26 on admission compared to 63 in July 2020. Also has ? ITP based on oncology note that is scanned, though he does not appear to have any chronic medications related to ITP. -Recommendation was when his platelet count increases to over 50, he can resume his anticoagulation with enoxaparin. Consulted with Dr. Glodsmith, Oncologist at [facility]. -sent a HIT antibody given thrombosis and apparent worsening of thrombocytopenia and recent initiation of Lovenox. 4T score of 4, however vague presentation and alternative cause could be his acute infection or recent chemo which is more likely. This result was much less than the cutoff of 0.4 at .123 and HIT is highly unlikely. -transfuse for Plt <10, <50 if bleeding develops. No current signs of active bleeding. -restarted anticoagulation on 02/11 when thrombocytopenia improved. 3. Severe hypokalemia, likely in the setting of persistent diarrhea, resolved 4. paroxysmal atrial fibrillation, with rvr, resolved -developed afib with rvr on 02/10 and 02/11 and needed increasing doses of metoprolol -had become slightly bradycardic and in sinus on 02/14 so decreased metoprolol to 25mg BID -episodes of junctional rhythm with bradycardia noted earlier in hospitalization -again in afib as of 02/16 which improved the following day with continued oral medication. 5. Cholangiocarcinoma, s/p whipple procedure - continue creon - has mets to lung based on oncology note from 6 months ago. Chemo was last done on Thursday 01/25 per patient. - C. diff negative, added loperamide to try and slow transit time. - increased carbohydrate allowance to encourage additional nutrition. 6. Diabetes, new diagnosis - A1c 6.6%, glucose elevated recently in setting of decadron therapy for COVID. Recommend dietary changes as an outpatient. - started on sliding scale insulin therapy, will continue 15 units of long acting this evening. 7. Acute toxic metabolic encephalopathy. - likely secondary to ICU delirium, in combination with steroids and opiate pain medications. Now improving today and more alert. No focal deficits to suggest CVA, but will check head CT to rule out metastases if he comes off of heated high flow. - continue to monitor - encourage PO nutrition. sleep during the night, awake during the day. VTE prophylaxis: again on Lovenox Dispo: likely prolonged hospitalization even from this point, possible transfer to breakfast attendant care (ghazal), SNF (if able), or home with significant assistance. Code Status: DNR/DNI, as discussed with patient who names his spouse, Adri as surrogate and POA Quality VTE Deep Vein Thrombosis/Pulmonary Embolism Present on Admission: Yes
[2021-02-18] MEDS: SODIUM CHLORIDE 0.9% FLUSH 10 ML IV ×2 (21:38→23:37)
[2021-02-18] MEDS: INSULIN GLARGINE 100 UNIT/ML 3ML PEN 8 UNIT SUBCUT (21:38)
[2021-02-18] MEDS: OXYCODONE IR 5 MG TABLET PO (22:47)
[2021-02-18] MEDS: LORazepam 2 MG/ML INJ 0.5 MG IV (23:37)
[2021-02-19] VITALS (14 sets, daily range): BP systolic 95–122; BP diastolic 68–74; PULSE 70–113; RESP 16–26; TEMP 36.1–36.5; O2SAT 88–99
--- NOTE | 2021-02-19 01:28 | PC.NURSE ---
Addendum entered by Arcelia Trammell R.N. 02/19/21 06:39: Patient has slept since IV Ativan given, SpO2 88-98%. CBG checked at [id number]. 450 sunday UOP. Original Note: 0000-Patient repeatedly takes HHF cannula off, restless, forgetful, mildly confused, and intermittently hallucinates, asked is this the baseball league? HR 60s to 130s, regular to irregular, desats to 70s on RA, recovers to 90s fairly quick with 100% O2 flushes. 5mg oxycodone given for back pain. Wanted to sit on BSC, but when he stood at side of bed with 2 person assist, he became dizzy and nauseous, IV Ativan given. Brief changed, no BM
[2021-02-19] MEDS: SODIUM CHLORIDE 0.9% FLUSH 10 ML IV (05:40)
[2021-02-19 06:39] LABS: Hematocrit 27.5 % (41-53); Hemoglobin 9.3 g/dL (13.5-17.5); Mean Corpuscular HGB Conc 33.9 % (30-36); Mean Corpuscular Volume 103.4 fL (80-100); Platelet Count 82 X10^3/uL (150-400); Red Blood Cell Count 2.66 X10^6/uL (4.5-5.9); White Blood Cell Count 7.1 X10^3/uL (4.5-11.0)
[2021-02-19 06:44] LABS: Add Manual Diff / Slide Review YES
[2021-02-19 06:46] LABS: Alanine Aminotransferase 35 IU/L (<50); Albumin Globulin Ratio 0.7 (1.0-2.8); Alkaline Phosphatase 124 U/L (38-126); Aspartate Aminotransferase 44 IU/L (17-59); BUN Creatinine Ratio 59.5 (6-22); Bilirubin Total 0.8 mg/dL (0.2-1.3); Blood Urea Nitrogen 25 mg/dL (9-20); Calcium 7.5 mg/dL (8.4-10.2); Carbon Dioxide 29 mmol/L (22-32); Chloride 103 mmol/L (98-107); Estimated Glomerular Filt Rate > 60.0 mL/min (>60); Globulin 2.9 g/dL (1.7-4.1); Glucose 66 mg/dL (70-100); HEMOLYSIS < 15 (0-50); Potassium 3.9 mmol/L (3.4-5.1); Sodium 133 mmol/L (137-145); Total Protein 4.9 g/dL (6.3-8.2)
[2021-02-19 07:10] LABS: Anisocytosis 2+; Neutrophils Absolute Manual 6248 /uL (3000-5900); Poikilocytosis 1+; Total Cells Counted 100
[2021-02-19] MEDS: METOPROLOL ER 25 MG TABLET PO ×2 (08:40→22:04)
[2021-02-19] MEDS: ENOXAPARIN 100 MG/ML SYRINGE SUBCUT (08:41)
[2021-02-19] MEDS: BARICITINIB 2 MG TABLET 4 MG PO (08:42)
[2021-02-19] MEDS: HYDROCORTISONE 10 MG TABLET PO (08:43)
--- NOTE | 2021-02-19 09:07 | CM.DPNOTE ---
Faxed referral packet to [facility] and received fax conf. Jeanne Potts CM Asst.
--- NOTE | 2021-02-19 14:37 | PM.PN.1 ---
Subjective Subjective Date Patient Seen: 02/19/21 Time Patient Seen: 14:38 Interval history: Today he feels quite fatigued, has slept much of the day. Denies pain today. No nausea or vomiting but did not eat much at all. Exam Vital Signs (past 8 hours): - 02/19/21 07:00 02/19/21 07:58 02/19/21 09:21 Temperature 97.7 F Pulse Rate 111 H 111 H 113 H Respiratory Rate 19 20 26 H Blood Pressure 108/74 Pulse Oximetry 93 88 L 93 02/19/21 10:48 02/19/21 11:27 02/19/21 14:32 Temperature 97 F L Pulse Rate 105 H 102 H 97 H Respiratory Rate 20 20 Blood Pressure 95/68 Pulse Oximetry 96 99 Fraction of Inspired Oxygen 75 Oxygen Delivery Method Heated High Flow Oxygen Flow Rate 50 Narrative Exam Narrative: Gen: Alert but cachectic, fatigued, and ill appearing 60 y.o. male, on high flow nasal cannula HEENT: normocephalic, atraumatic, conjunctiva clear, sclera non-icteric, oral mucosa pink and moist Neck: supple, full ROM, no JVD, trachea is midline Resp: coarse breath sounds bilaterally, no wheezing bilaterally. shallow breaths Chest: Portacath in place on right upper chest, no erythema or induration. CV: RRR, no m/r/g. Abd: soft, non-tender, normoactive BTs Neuro: Alert, fatigued. Oriented to person and hospital. No focal deficits. Extremities: 2+ pedal edema bilaterally, no joint effusions Psyche: normal mood and affect. Objective Labs Result Diagrams: 02/19/21 06:00 02/19/21 06:00 Labs: Laboratory Results - last 24 hr 02/19/21 02/19/21 06:00 06:00 WBC 7.1 RBC 2.66 L Hgb 9.3 L Hct 27.5 L MCV 103.4 H MCH 35.0 H MCHC 33.9 RDW 24.0 H Plt Count 82 L Neut % (Auto) Not Reportable Lymph % (Auto) Not Reportable [place] % (Auto) Not Reportable Eos % (Auto) Not Reportable Baso % (Auto) Not Reportable Lymph # (Auto) Not Reportable [place] # (Auto) Not Reportable Baso # (Auto) Not Reportable Total Counted 100 Seg Neutrophils % 88.0 H Lymphocytes % (Manual) 5.0 L Atypical Lymphs % 1.0 H Monocytes % (Manual) 6.0 Neutrophils # (Manual) 6248 H RBC Morphology Not Reportable Poikilocytosis 1+ H Anisocytosis 2+ H Sodium 133 L Potassium 3.9 Chloride 103 Carbon Dioxide 29 BUN 25 H Creatinine 0.42 L Estimated GFR > 60.0 BUN/Creatinine Ratio 59.5 H Glucose 66 L Calcium 7.5 L Magnesium 2.0 Total Bilirubin 0.8 AST 44 ALT 35 Alkaline Phosphatase 124 Total Protein 4.9 L Albumin 2.0 L Globulin 2.9 Albumin/Globulin Ratio 0.7 L PFSH Medical History Cholangiocarcinoma COVID-19 vaccine series completed Slcxu-Ufkirgnzz-Cqvhs syndrome Surgical History History of Whipple procedure Midline sternotomy scar Family History Mother CVA (cerebral vascular accident) Father Lung cancer Social History household members: spouse and family Smoking Status: Former smoker Assessment & Plan Assessment & Plan narrative: Mr. Dai is a 60M admitted with hypoxemic respiratory failure secondary to COVID pneumonia. 1. COVID-19 and superimposed klebsiella, and acute respiratory failure with hypoxia. -patient was vaccinated. -supportive care with pain control, fever suppression, and oxygen to maintain O2 >90% while on supplemental therapy. -currently on heated high flow, waxing and waning oxygen requirements since admission. -sputum cultures with klebsiella, ceftriaxone continued, and now completed course -continue high flow oxygen, proning if able. Completed steroid course. -barcitinib started, continue x 14 days as able to tolerate PO intake. -remdesivir course completed after 10 days -despite these therapies patient continues to decline physically, requiring higher levels of oxygen, becoming more fatigued, this is likely due to his poor immune system in setting of cancer and chemotherapy. Prognosis is uncertain, but mortality risk is quite high at this time, especially if he cannot tolerate oral intake. family not interested in feeding tube and he is DNR/DNI. - risking leukocytosis on 02/15 briefly but now improved, unclear cause though no overt symptoms at the time. Will continue to monitor. He completed previous course of antibiotic therapy. No current fevers. 2. Pancytopenia with recent right femoral DVT diagnosed 3 weeks ago and present on admission, also with prior history of ITP and chronic thrombocytopenia. Pancytopenia likely secondary to chemotherapy, possible COVID infection is contributing as well, now improved. -Patient was self administering enoxaparin 120 mg daily which was initially held -platelet count is 26 on admission compared to 63 in July 2020. Also has ? ITP based on oncology note that is scanned, though he does not appear to have any chronic medications related to ITP. -Recommendation was when his platelet count increases to over 50, he can resume his anticoagulation with enoxaparin. Consulted with Dr. Goldsmith, Oncologist at [facility]. -sent a HIT antibody given thrombosis and apparent worsening of thrombocytopenia and recent initiation of Lovenox. 4T score of 4, however vague presentation and alternative cause could be his acute infection or recent chemo which is more likely. This result was much less than the cutoff of 0.4 at .123 and HIT is highly unlikely. -transfuse for Plt <10, <50 if bleeding develops. No current signs of active bleeding. -restarted anticoagulation on 02/11 when thrombocytopenia improved. 3. Severe hypokalemia, likely in the setting of persistent diarrhea, resolved 4. paroxysmal atrial fibrillation, with rvr, resolved -developed afib with rvr on 02/10 and 02/11 and needed increasing doses of metoprolol -had become slightly bradycardic and in sinus on 02/14 so decreased metoprolol to 25mg BID -episodes of junctional rhythm with bradycardia noted earlier in hospitalization -again in afib as of 02/16 which improved the following day with continued oral medication. 5. Cholangiocarcinoma, s/p whipple procedure - continue creon - has mets to lung based on oncology note from 6 months ago. Chemo was last done on Thursday 01/25 per patient. - C. diff negative, added loperamide to try and slow transit time. - increased carbohydrate allowance to encourage additional nutrition. 6. Diabetes, new diagnosis - A1c 6.6%, glucose elevated recently in setting of decadron therapy for COVID. Recommend dietary changes as an outpatient. - started on sliding scale insulin therapy, will continue 15 units of long acting this evening. 7. Acute toxic metabolic encephalopathy. - likely secondary to ICU delirium, in combination with steroids and opiate pain medications. Now improving. No focal deficits to suggest CVA, but will check head CT to rule out metastases if he comes off of heated high flow. - continue to monitor - encourage PO nutrition. sleep during the night, awake during the day. VTE prophylaxis: again on Lovenox Dispo: likely continued prolonged hospitalization even from this point, possible transfer to truck terminal manager care (ghazal), SNF (if able), or home with significant assistance. Code Status: DNR/DNI, as discussed with patient who names his spouse, Adri as surrogate and POA Quality VTE Deep Vein Thrombosis/Pulmonary Embolism Present on Admission: Yes
[2021-02-19] MEDS: LIPASE PROTEASE AMYLASE 2 EACH PO (18:22)
[2021-02-19] MEDS: guaiFENesin ER 600 MG TAB 1200 MG PO (22:03)
[2021-02-19] MEDS: INSULIN GLARGINE 100 UNIT/ML 3ML PEN 8 UNIT SUBCUT (22:05)
[2021-02-20] VITALS (14 sets, daily range): BP systolic 99–128; BP diastolic 63–76; PULSE 67–97; RESP 16–24; TEMP 36.6–36.9; O2SAT 92–100
[2021-02-20] MEDS: DEXTROSE 50 % IN WATER 25 GM/50 ML SYRINGE IV (05:21)
--- NOTE | 2021-02-20 05:31 | PC.NURSE ---
At RN's request to check BG
--- NOTE | 2021-02-20 05:41 | PC.NURSE ---
0530- Patient acting confused and he is taking his oxygen off. He took his gown off. BG 71 patient unable to track and conversate. D50 given per order. LIZZY Trevino notified. Glargine to be placed on hold.
[2021-02-20 08:49] LABS: Add Manual Diff / Slide Review NO; Basophils Absolute Auto 0 /uL (0-100); Basophils Percent Auto 0.4 % (0-2); Eosinophils Absolute Auto 0 /uL (0-450); Eosinophils Percent Auto 0.5 % (2-4); Hematocrit 26.9 % (41-53); Hemoglobin 9.2 g/dL (13.5-17.5); Lymphocytes Absolute Auto 300 /uL (1100-4500); Lymphocytes Percent Auto 4.2 % (25-40); Mean Corpuscular HGB Conc 34.2 % (30-36); Mean Corpuscular Hemoglobin 35.5 PG (26-34); Mean Corpuscular Volume 103.9 fL (80-100); Monocytes Absolute Auto 500 /uL (0-900); Monocytes Percent Auto 8.3 % (3-14); Neutrophils Absolute Auto 5200 /uL (1500-7000); Neutrophils Percent Auto 86.6 % (50-75); Platelet Count 73 X10^3/uL (150-400); Red Blood Cell Count 2.58 X10^6/uL (4.5-5.9); Red Cell Distribution Width 23.4 % (11.6-14.8)
[2021-02-20] MEDS: ENOXAPARIN 100 MG/ML SYRINGE SUBCUT (08:57)
[2021-02-20] MEDS: BARICITINIB 2 MG TABLET 4 MG PO (08:57)
[2021-02-20] MEDS: SENNOSIDES 8.6 MG TABLET PO (08:57)
[2021-02-20] MEDS: buPROPion XL 150 MG TAB PO (08:57)
[2021-02-20] MEDS: METOPROLOL ER 25 MG TABLET PO ×2 (08:57→21:09)
[2021-02-20 08:58] LABS: BUN Creatinine Ratio 53.8 (6-22); Blood Urea Nitrogen 21 mg/dL (9-20); Calcium 7.4 mg/dL (8.4-10.2); Carbon Dioxide 26 mmol/L (22-32); Chloride 102 mmol/L (98-107); Estimated Glomerular Filt Rate > 60.0 mL/min (>60); Glucose 105 mg/dL (70-100); HEMOLYSIS < 15 (0-50); Potassium 3.4 mmol/L (3.4-5.1); Sodium 131 mmol/L (137-145)
[2021-02-20 09:02] LABS: C-Reactive Protein Quant 2.8 mg/dL (<1.0)
[2021-02-20] MEDS: HYDROCORTISONE 10 MG TABLET PO (09:02)
[2021-02-20 09:03] LABS: Anisocytosis 2+; Poikilocytosis 1+
[2021-02-20 09:12] LABS: D Dimer 2651 ng/mL (<230)
[2021-02-20] MEDS: OXYCODONE IR 10 MG TABLET PO (09:24)
--- NOTE | 2021-02-20 11:20 | CM.DANOTE ---
Addendum entered by Mirtha Nolan 02/20/21 12:01: Patient uses CPAP at night. Original Note: DCP/Continued: Reviewed chart. Patient continues to need ICU level care. Patient COVID positive at time of admit. Currently patient is DNR/DNI. Spoke with Dr. Grace in AM rounds about next steps. Clinical faxed to [facility] at the beginning of the week for review. Dr. Grace requesting CM team check with [facility] on whether or not they can accept patient on heated high flow 02 and COVID positive. Placed call to Rosita at [facility] re: above. Rosita reports that they did review the clinical and that they could accept if patient did not have [employer] [place]. Rosita indicates that they currently do not have contract with any [place] plans. [facility] working on contract. In the meantime there are no additional long-term acute care facilities in [place]. Patient currently high acuity and SNF level would not be appropriate. Dr. Grace updated. P: Unable to coordinate d/c plan while patient due to medical acuity. No discussion at this time re: goals of care. CM team following closely. RASHID Davidson
[2021-02-20] MEDS: FUROSEMIDE 20 MG/2 ML VIAL IV ×2 (14:22→21:08)
--- NOTE | 2021-02-20 14:43 | PM.PN.1 ---
Subjective Subjective Interval history: 60 y/o male admitted with acute respiratory failure secondary to Covid-19 pneumonia. Patient continues to require high flow oxygen despite full dose remedesivir/decdron Patient also on baricitnib as well to continue a 14 day course. Exam Vital Signs (past 8 hours): - 02/20/21 08:00 02/20/21 09:41 02/20/21 12:59 Temperature 98.1 F Pulse Rate 81 75 86 Respiratory Rate 20 24 24 Blood Pressure 118/73 118/73 Pulse Oximetry 97 93 95 Fraction of Inspired Oxygen 0.75 Oxygen Delivery Method Heated High Flow Oxygen Flow Rate 55 Narrative Exam Narrative: ill appearing male lying in bed Resp Other: Lungs: decreased breath sounds with occassional crackles Cardio Other: RRR nlSl S2 GI Other: Abd: soft/ non tender/ non distended Extrem Other: 3+ edema bilaterally Objective Labs Result Diagrams: 02/20/21 08:36 02/20/21 08:36 Labs: Laboratory Results - last 24 hr 02/20/21 02/20/21 02/20/21 08:36 08:36 08:36 WBC 6.0 RBC 2.58 L Hgb 9.2 L Hct 26.9 L MCV 103.9 H MCH 35.5 H MCHC 34.2 RDW 23.4 H Plt Count 73 L Neut % (Auto) 86.6 H Lymph % (Auto) 4.2 L [place] % (Auto) 8.3 Eos % (Auto) 0.5 L Baso % (Auto) 0.4 Neut # (Auto) 5200 Lymph # (Auto) 300 L [place] # (Auto) 500 Eos # (Auto) 0 Baso # (Auto) 0 RBC Morphology Not Reportable Poikilocytosis 1+ H Anisocytosis 2+ H D-Dimer 2651 H Sodium Potassium Chloride Carbon Dioxide BUN Creatinine Estimated GFR BUN/Creatinine Ratio Glucose Calcium C-Reactive Protein 2.8 H 02/20/21 08:36 WBC RBC Hgb Hct MCV MCH MCHC RDW Plt Count Neut % (Auto) Lymph % (Auto) [place] % (Auto) Eos % (Auto) Baso % (Auto) Neut # (Auto) Lymph # (Auto) [place] # (Auto) Eos # (Auto) Baso # (Auto) RBC Morphology Poikilocytosis Anisocytosis D-Dimer Sodium 131 L Potassium 3.4 Chloride 102 Carbon Dioxide 26 BUN 21 H Creatinine 0.39 L Estimated GFR > 60.0 BUN/Creatinine Ratio 53.8 H Glucose 105 H Calcium 7.4 L C-Reactive Protein [facility] Medical History Cholangiocarcinoma COVID-19 vaccine series completed Mvtwz-Lzoxdjyap-Pezwy syndrome Surgical History History of Whipple procedure Midline sternotomy scar Family History Mother CVA (cerebral vascular accident) Father Lung cancer Social History household members: spouse and family Smoking Status: Former smoker Assessment & Plan Assessment & Plan narrative: COVID-19 and superimposed klebsiella, and acute respiratory failure with hypoxia. -patient was vaccinated. -supportive care with pain control, fever suppression, and oxygen to maintain O2 >90% while on supplemental therapy. -currently on heated high flow, waxing and waning oxygen requirements since admission. -sputum cultures with klebsiella, ceftriaxone continued, and now completed course -continue high flow oxygen, proning if able. Completed steroid course. -barcitinib started, continue x 14 days as able to tolerate PO intake. -remdesivir course completed after 10 days -despite these therapies patient continues to decline physically, requiring higher levels of oxygen, becoming more fatigued, this is likely due to his poor immune system in setting of cancer and chemotherapy. Prognosis is uncertain, but mortality risk is quite high at this time, especially if he cannot tolerate oral intake. family not interested in feeding tube and he is DNR/DNI. - risking leukocytosis on 02/15 briefly but now improved, unclear cause though no overt symptoms at the time. Will continue to monitor. He completed previous course of antibiotic therapy. No current fevers. - patient is a long hauler, it may take weeks before he improves. For now will try gentle diuresis to see if we can wean oxygen -Will also resume prednisone as some patients develope ILD post Covid-, given 19 day hospitilaztion and continued hypoxemia will resume sterodis. 2. Pancytopenia with recent right femoral DVT diagnosed 3 weeks ago and present on admission, also with prior history of ITP and chronic thrombocytopenia. Pancytopenia likely secondary to chemotherapy, possible COVID infection is contributing as well, now improved. -Patient was self administering enoxaparin 120 mg daily which was initially held -platelet count is 26 on admission compared to 63 in July 2020. Also has ? ITP based on oncology note that is scanned, though he does not appear to have any chronic medications related to ITP. -Recommendation was when his platelet count increases to over 50, he can resume his anticoagulation with enoxaparin. Consulted with Dr. Goldsmith, Oncologist at [facility]. -sent a HIT antibody given thrombosis and apparent worsening of thrombocytopenia and recent initiation of Lovenox. 4T score of 4, however vague presentation and alternative cause could be his acute infection or recent chemo which is more likely. This result was much less than the cutoff of 0.4 at .123 and HIT is highly unlikely. -transfuse for Plt <10, <50 if bleeding develops. No current signs of active bleeding. -restarted anticoagulation on 02/11 when thrombocytopenia improved. done D-Dimer 2651, at high risk for DVT, as patient here for weeks, will defer daily labs and suggest pediatric tubes 3. Severe hypokalemia, likely in the setting of persistent diarrhea, resolved 4. paroxysmal atrial fibrillation, with rvr, resolved -developed afib with rvr on 02/10 and 02/11 and needed increasing doses of metoprolol -had become slightly bradycardic and in sinus on 02/14 so decreased metoprolol to 25mg BID -episodes of junctional rhythm with bradycardia noted earlier in hospitalization -again in afib as of 02/16 which improved the following day with continued oral medication. 5. Cholangiocarcinoma, s/p whipple procedure - continue creon - has mets to lung based on oncology note from 6 months ago. Chemo was last done on Thursday 01/25 per patient. - C. diff negative, added loperamide to try and slow transit time. - increased carbohydrate allowance to encourage additional nutrition. 6. Diabetes, new diagnosis - A1c 6.6%, glucose elevated recently in setting of decadron therapy for COVID. Recommend dietary changes as an outpatient. - started on sliding scale insulin therapy, will continue 15 units of long acting this evening. 7. Acute toxic metabolic encephalopathy. - likely secondary to ICU delirium, in combination with steroids and opiate pain medications. Now improving. No focal deficits to suggest CVA, but will check head CT to rule out metastases if he comes off of heated high flow. - continue to monitor - encourage PO nutrition. sleep during the night, awake during the day. VTE prophylaxis: again on Lovenox Quality VTE Deep Vein Thrombosis/Pulmonary Embolism Present on Admission: Yes
[2021-02-20 14:51] LABS: COVID19 -Nasal RAPID POSITIVE (Negative)
--- NOTE | 2021-02-20 17:11 | DIET.PN ---
Dietary Progress Note Pts recorded POs <50% despite dietary trialing wide variety of meal, snack, ONS options, liberalized CHO allowances, and bringing in favorite foods. Pt remains on heated high flow O2. Pt and family do not desire nutrition support via TPN/EN. Nutrition Diagnosis: Acute on Chronic Severe Malnutrition r/t difficulty eating and cholangiocarcinoma aeb 12% unintentional weight loss in 6mo, POs <50% x10d, active Covid19 pneumonia on LOS day 17 requiring heated high flow oxygen 65% at 50L, pt refusing most meals unless present. Recc continued encouragement of POs, sips ONS throughout day.
--- NOTE | 2021-02-20 17:41 | PC.NURSE ---
Shift Note Pt very fatigued and withdrawn. Oriented to self and place, slow to answer. Reports feeling foggy. Took AM pills this morning but did not eat breakfast or dinner, always willing to try but does not touch tray before falling asleep. Currently sitting up with dinner in bed, took some sips of ONS and smoothie. Repositioning per pt request as refusing most turns, preferring to sleep, attempting goal of every 2 hours. Allevyn dressing in place C/D/I. Audible crackles/congestion to upper airway this afternoon, administered 20 mg Lasix IV per MD order with good results via Munoz catheter. Lungs sounds improved on evening assessment. On heated HFNC 55L and 60% FiO2, SPO2 94% at rest, desats to low 80s with activity (turns) with 100% O2 flush administered x1 after changing brief in bed. Port needle changed per protocol without issue, good blood return noted. Call light within reach, using appropriately to make needs known.
[2021-02-20] MEDS: LIPASE PROTEASE AMYLASE 2 EACH PO (18:04)
[2021-02-20] MEDS: SODIUM CHLORIDE 0.9% FLUSH 10 ML IV (21:09)
[2021-02-21] VITALS (15 sets, daily range): BP systolic 80–90; BP diastolic 56–61; PULSE 67–676; RESP 18–26; TEMP 35.9–36.7; O2SAT 86–98
[2021-02-21] MEDS: LORazepam 0.5 MG TABLET PO ×3 (00:09→21:10)
[2021-02-21 05:44] LABS: BUN Creatinine Ratio 65.1 (6-22); Blood Urea Nitrogen 28 mg/dL (9-20); Calcium 7.6 mg/dL (8.4-10.2); Carbon Dioxide 29 mmol/L (22-32); Chloride 99 mmol/L (98-107); Estimated Glomerular Filt Rate > 60.0 mL/min (>60); Glucose 103 mg/dL (70-100); HEMOLYSIS < 15 (0-50); Potassium 3.2 mmol/L (3.4-5.1); Sodium 129 mmol/L (137-145)
[2021-02-21] MEDS: BARICITINIB 2 MG TABLET 4 MG PO (08:40)
[2021-02-21] MEDS: LIPASE PROTEASE AMYLASE 2 EACH PO ×3 (08:40→18:00)
[2021-02-21] MEDS: predniSONE 20 MG TABLET 40 MG PO (08:40)
[2021-02-21] MEDS: guaiFENesin ER 600 MG TAB 1200 MG PO (08:40)
[2021-02-21] MEDS: SENNOSIDES 8.6 MG TABLET PO (08:40)
[2021-02-21] MEDS: buPROPion XL 150 MG TAB PO (08:40)
[2021-02-21] MEDS: ENOXAPARIN 100 MG/ML SYRINGE SUBCUT (08:41)
[2021-02-21] MEDS: BISACODYL 10 MG SUPP PR (09:25)
--- NOTE | 2021-02-21 10:40 | P.PN_ITS ---
Subjective Subjective Interval history: Patient is frustrated and despondent over lack of progress. He recieved lasix last night with good output. Unfortunately his oxygenation has not improved significantly. He has a poor appetite, He continues to have lower extremity edema Exam Vital Signs (past 8 hours): - 02/21/21 04:06 02/21/21 06:14 02/21/21 08:50 Temperature 97 F L Pulse Rate 89 85 121 H Respiratory Rate 18 18 18 Blood Pressure 90/56 L 85/61 L Pulse Oximetry 92 91 95 Fraction of Inspired Oxygen 67 Oxygen Delivery Method Heated High Flow Oxygen Flow Rate 55 Narrative Exam Narrative: Ill appearing male lying in bed Resp Other: Decreased breath sounds with occassional scattered crackles Cardio Other: RRR nl Sl S2 GI Other: Abd: soft/ non tender/ non distended Extrem Other: 2-3+ edema Objective Labs Result Diagrams: 02/20/21 08:36 02/21/21 05:25 Labs: Laboratory Results - last 24 hr 02/20/21 02/21/21 12:35 05:25 Sodium 129 L Potassium 3.2 L Chloride 99 Carbon Dioxide 29 BUN 28 H Creatinine 0.43 L Estimated GFR > 60.0 BUN/Creatinine Ratio 65.1 H Glucose 103 H Calcium 7.6 L SARS-CoV-2 (PCR) Positive H [facility] Medical History Cholangiocarcinoma COVID-19 vaccine series completed Sacmx-Jqreryfrk-Jqbou syndrome Surgical History History of Whipple procedure Midline sternotomy scar Family History Mother CVA (cerebral vascular accident) Father Lung cancer Social History household members: spouse and family Smoking Status: Former smoker Assessment & Plan Assessment & Plan narrative: 1. Acute Hypoxic Respiratory Failure secondary to Covid-19 pneumona -Patient completed REmdesivir and Decadron for 10 days -He is completing day 12/14 of Baricitinib -He remains hypoxic despite lasix -Patient now on steroids to treat post Covid Interstitial lung disease -Need to reinforce self proning -Continue oxygen taper 2. Pancytopenia with recent right femoral DVT diagnosed 3 weeks ago and present on admission, also with prior history of ITP and chronic thrombocytopenia. Panc ytopenia likely secondary to chemotherapy, possible COVID infection is contributing as well, now improved. -Patient was self administering enoxaparin 120 mg daily which was initially held -platelet count is 26 on admission compared to 63 in July 2020. Also has ? ITP based on oncology note that is scanned, though he does not appear to have any chronic medications related to ITP. -Recommendation was when his platelet count increases to over 50, he can resume his anticoagulation with enoxaparin. Consulted with Dr. Goldsmith, Oncologist at [facility]. -sent a HIT antibody given thrombosis and apparent worsening of thrombocytopenia and recent initiation of Lovenox. 4T score of 4, however vague presentation and alternative cause could be his acute infection or recent chemo which is more lik kasey. This result was much less than the cutoff of 0.4 at .123 and HIT is highly unlikely. -transfuse for Plt <10, <50 if bleeding develops. No current signs of active bleeding. -restarted anticoagulation on 02/11 when thrombocytopenia improved. done D-Dimer 2651, at high risk for DVT, as patient here for weeks, will defer daily labs and suggest pediatric tubes Continue Lovenox for DVT as above 3. Hypokalemia-secondary to diuresis, will replace potassium -no further diuresis 4. paroxysmal atrial fibrillation, with rvr, resolved -developed afib with rvr on 02/10 and 02/11 and needed increasing doses of metoprolol -had become slightly bradycardic and in sinus on 02/14 so decreased metoprolol to 25mg BID -episodes of junctional rhythm with bradycardia noted earlier in hospitalization -again in afib as of 02/16 which improved the following day with continued oral medication. -d/c lasix, continue metoprolol BID for rate control 5. Cholangiocarcinoma, s/p whipple procedure - continue creon - has mets to lung based on oncology note from 6 months ago. Chemo was last done on Thursday 01/25 per patient. - C. diff negative, added loperamide to try and slow transit time. - increased carbohydrate allowance to encourage additional nutrition. 6. Diabetes, new diagnosis - A1c 6.6%, glucose elevated recently in setting of decadron therapy for COVID. Recommend dietary changes as an outpatient. - started on sliding scale insulin therapy, will continue 15 units of long acting this evening. 7. Acute toxic metabolic encephalopathy. - likely secondary to ICU delirium, in combination with steroids and opiate pain medications. Now improving. No focal deficits to suggest CVA, but will check head CT to rule out metastases if he comes off of heated high flow. - continue to monitor - encourage PO nutrition. sleep during the night, awake during the day. Quality VTE Deep Vein Thrombosis/Pulmonary Embolism Present on Admission: Yes
[2021-02-21] MEDS: POTASSIUM CHLORIDE 20 MEQ TAB 40 MEQ PO (11:34)
[2021-02-21] MEDS: INSULIN LISPRO 100 UNIT/ML 3ML VIAL SUBCUT ×2 (11:46→17:45)
--- NOTE | 2021-02-21 14:38 | PC.NURSE ---
Attempt x2 to assist pt to prone positioning. Pt is agreeable to prone and each time but moves himself to side lying both times after about 10 minutes. Pt is forgetful/confused and unable to be directed to maintain prone positioning for greater than 10 minutes. SPO2 88% during brief proning session. Currently left side-lying. SPO2 decreased to 86% on 55L and 60% FIO2 HHFNC. Increase FIO2 to 65% yielding SPO2 of 88-90%.
[2021-02-21] MEDS: LOPERAMIDE 2 MG CAPSULE PO (18:07)
--- NOTE | 2021-02-21 22:14 | PC.NURSE ---
Pt presents fatigued and confused. Pt feebly moves self with 2 person assist for bed turning. Pt is oriented to name and situation but forgetful of location and year. Pt is able to have simple conversations about his care and asks appropriate questions. Pt is on heated high flow at 55L 65% and has maintained an SpO2 above 90% the entire shift. Stat probe is on earlobe. Pt sleeps most of shift. With RN sitting at bedside and continuous verbal encouragement pt ate half an apple sauce, 1.5 Ensures and half a fruit cup. When discussing plan of care with pt, pt states, I won't give up. Pt brief changed once with a smear BM. Stage 2 pressure sore to coccyx was cleaned, dried and covered with allevyn dressing.
[2021-02-22] VITALS (18 sets, daily range): BP systolic 88–100; BP diastolic 54–67; PULSE 72–114; RESP 10–28; TEMP 36.4–36.6; O2SAT 78–97
[2021-02-22] MEDS: LACTATED RINGERS 500 ML 1000 ML IV (08:30)
[2021-02-22] MEDS: buPROPion XL 150 MG TAB PO (08:58)
[2021-02-22] MEDS: predniSONE 20 MG TABLET 40 MG PO (08:58)
[2021-02-22] MEDS: ENOXAPARIN 100 MG/ML SYRINGE SUBCUT (08:58)
[2021-02-22] MEDS: BARICITINIB 2 MG TABLET 4 MG PO (08:59)
[2021-02-22] MEDS: INSULIN LISPRO 100 UNIT/ML 3ML VIAL SUBCUT (09:00)
[2021-02-22] MEDS: LIPASE PROTEASE AMYLASE 2 EACH PO (09:00)
[2021-02-22 09:33] LABS: Fractionated Inspired Oxygen 100; HCO3 ABG 28 mmol/L (22-26); Oxygen Saturation ABG 93 % (95-100); PCO2 ABG 30.3 mmHg (35-45); PO2 ABG 57 mmHg (80-100); TCO2 ABG 29 mmol/L (21-31); pH ABG 7.57 (7.35-7.45)
--- NOTE | 2021-02-22 10:07 | PC.NURSE ---
Addendum entered by Alexander Corral R.N. 02/22/21 14:09: Notified Dr. [facility] that pt is resting comfortably at this time. Ordered for NOW is PO K+. Clarified if med could be given at dinner time. Orders received. Addendum entered by Alexander Corral R.N. 02/22/21 14:04: Pt failed CPAP and BIPAP (see RT note). Remains on HHFNC 60L 100% FIO2 with sats 87-92%. Morphine and lorazepam both given for pt c/o difficulty breathing. Pt now resting comfortably with eyes closed. Spouse at bedside. Plan is to monitor pt another 24 hours for improvement. Addendum entered by Alexander Corral R.N. 02/22/21 10:46: Reviewed with Dr. [facility] VS including HR, RR, pt c/o of shortness of breath, dyspnea. RT to start CPAP. Dr. [facility] states she will order morphine to help with air hunger. Original Note: Pt began dropping sats shortly after change of shift. RR mid 20s with sats 80-85%. Initially, pt able to recover sats to 88% with 100% O2 flush; however, unable to maintain sat goal of 88-92% on FIO2 65%. Titrated FIO2 up to 80% and notified RT of desats and titration of HHFNC. RT increased flow to 60L. Placed pt on bedside telemetry monitoring as pulse ox rate noted to be variable 80s-140s. Bedside monitoring showing Afib RVR BBB 130s. Pt denying shortness of breath at this time. RR mid 20s. Denying chest pain/pressure, dizziness/lightheadedness, palpitations. Notified Dr. [facility] of pt's increasing O2 needs, HR/rhythm, BP 92/62 (73). Dr. [facility] instructed to hold PO metoprolol and give 500 ML LR Bolus x1. Orders for ABG received. RT notified of order. After obtaining order, pt began stating he felt short of breath and dyspneic. Why can't I breathe? Provided repositioning and instructed in deep breathing maneuvers. Pt is tearful. Emotional support provided. Pt requested his be notified. States This is the beginning of the end. Updated Dr. [facility] on pt request to notify spouse as well as ABG results. Dr. [facility] states she will notify spouse and discuss with RT the option of cpap.
[2021-02-22] MEDS: MORPHINE 4 MG/ML INJ IV ×2 (11:36→18:56)
--- NOTE | 2021-02-22 11:36 | RT ---
ATTEMPTED BIPAP SETTING POST CPAP SETTING, PER VERBAL ORDER BY DR. BENOIT TO TRY TO IMPROVE PT'S SPO2 AND DECREASE FIO2 REQUIREMENTS. O2 SAT DECREASED WITH BOTH CPAP 10-14 AND BIPAP 20/12, FIO2 100%. DR. BENOIT PRESENT. PT IS BACK ON HHFNC 60 LPM AND 100% FIO2.
[2021-02-22] MEDS: LORazepam 2 MG/ML INJ 1 MG IV (12:45)
--- NOTE | 2021-02-22 13:25 | PM.PN.1 ---
Subjective Subjective Interval history: The patient is a 60-year-old male admitted to the hospital with acute hypoxic respiratory failure secondary to COVID-19 pneumonia. Overnight the patient has become progressively more hypoxic. He is now requiring FiO2 of 100% to maintain oxygen saturation of greater than 90%. The patient's was informed that he has taken a precipitous decline. He was hypotensive earlier and he remains tachycardic. The reiterated their discussion that the patient would not be intubated if he developed respiratory failure. However we will continue to focus on comfort. The patient was tried on CPAP to determine if his oxygenation could improve. Unfortunately he did not tolerate CPAP and decompensated significantly with worsening hypoxia. Exam Vital Signs (past 8 hours): - 02/22/21 06:10 02/22/21 07:30 02/22/21 08:22 Temperature 97.9 F Pulse Rate 88 112 H 103 H Respiratory Rate 24 26 H Blood Pressure 92/62 92/62 Pulse Oximetry 89 L 83 L 89 L 02/22/21 09:47 02/22/21 11:31 Temperature Pulse Rate 99 H 114 H Respiratory Rate 28 H 28 H Blood Pressure 92/62 92/54 L Pulse Oximetry 89 L 85 L Fraction of Inspired Oxygen 100 Oxygen Delivery Method Heated High Flow Oxygen Flow Rate 55 Narrative Exam Narrative: Frail ill-appearing male lying in bed Const Other: The patient is cachectic, wasted, frail in appearance Resp Other: Lungs: Decreased breath sounds with occasional scattered crackles Cardio Other: Cardiac exam: Tachycardic regular rate and rhythm normal S1-S2 GI Other: Abdomen: Soft nontender nondistended Extrem Other: Extremities: 2+ edema Objective Labs Result Diagrams: 02/20/21 08:36 02/21/21 05:25 Labs: Laboratory Results - last 24 hr 02/22/21 09:12 ABG pH 7.57 H ABG pCO2 30.3 L ABG pO2 57 L ABG HCO3 28 H ABG Total CO2 29 ABG O2 Saturation 93 L ABG Base Excess 6.0 H FiO2 100 PFSH Medical History Cholangiocarcinoma COVID-19 vaccine series completed Xyftl-Kjhiulbct-Pcijy syndrome Surgical History History of Whipple procedure Midline sternotomy scar Family History Mother CVA (cerebral vascular accident) Father Lung cancer Social History household members: spouse and family Smoking Status: Former smoker Assessment & Plan Assessment & Plan narrative: Acute Hypoxic Respiratory Failure secondary to Covid-19 pneumona -Patient completed REmdesivir and Decadron for 10 days -He is completing day 06/25 of Baricitinib -He remains hypoxic despite lasix -Patient now on steroids to treat post Covid Interstitial lung disease -Need to reinforce self proning -Continue oxygen taper -patient has developed significant hypoxia, is now on 100% FiO2, -given hypotension he was given 500 cc bolus of IV fluids, his metoprolol is being held -I discussed with his the prognosis, the patient has been here for 21 days and despite maximum treatment with therapy to include Decadron remdesivir, varices neb he continues to have progressive hypoxemia. His reiterated and confirmed that they would like for her to remain DNR DNI. We discussed the option of transitioning to comfort if maximum support she was not able to achieve improved oxygenation. Patient is placed on morphine 4 mg q.2 hours as needed in addition to Ativan 1 mg q.4 hours as needed for comfort. The patient developed worsening hypoxia will discuss with the transitioning to comfort measures only. 2. Pancytopenia with recent right femoral DVT diagnosed 3 weeks ago and present on admission, also with prior history of ITP and chronic thrombocytopenia. Pancytopenia likely secondary to chemotherapy, possible COVID infection is contributing as well, now improved. -Patient was self administering enoxaparin 120 mg daily which was initially held -platelet count is 26 on admission compared to 63 in July 2020. Also has ? ITP based on oncology note that is scanned, though he does not appear to have any chronic medications related to ITP. -Recommendation was when his platelet count increases to over 50, he can resume his anticoagulation with enoxaparin. Consulted with Dr. Goldsmith, Oncologist at [facility]. -sent a HIT antibody given thrombosis and apparent worsening of thrombocytopenia and recent initiation of Lovenox. 4T score of 4, however vague presentation and alternative cause could be his acute infection or recent chemo which is more likely. This result was much less than the cutoff of 0.4 at .123 and HIT is highly unlikely. -transfuse for Plt <10, <50 if bleeding develops. No current signs of active bleeding. -restarted anticoagulation on 02/11 when thrombocytopenia improved. done D-Dimer 2651, at high risk for DVT, as patient here for weeks, will defer daily labs and suggest pediatric tubes Continue Lovenox for DVT as above 3. Hypokalemia-secondary to diuresis, will replace potassium -no further diuresis -replace potassium 4. paroxysmal atrial fibrillation, with rvr, resolved -developed afib with rvr on 02/10 and 02/11 and needed increasing doses of metoprolol -had become slightly bradycardic and in sinus on 02/14 so decreased metoprolol to 25mg BID -episodes of junctional rhythm with bradycardia noted earlier in hospitalization -again in afib as of 02/16 which improved the following day with continued oral medication. -d/c lasix, continue metoprolol BID for rate control -patient is hypotensive, will hold metoprolol and resume as blood pressure tolerates 5. Cholangiocarcinoma, s/p whipple procedure - continue creon - has mets to lung based on oncology note from 6 months ago. Chemo was last done on Thursday 01/25 per patient. - C. diff negative, added loperamide to try and slow transit time. - increased carbohydrate allowance to encourage additional nutrition. 6. Diabetes, new diagnosis - A1c 6.6%, glucose elevated recently in setting of decadron therapy for COVID. Recommend dietary changes as an outpatient. - started on sliding scale insulin therapy, will continue 15 units of long acting this evening. 7. Acute toxic metabolic encephalopathy. - likely secondary to ICU delirium, in combination with steroids and opiate pain medications. Now improving. No focal deficits to suggest CVA, but will check head CT to rule out metastases if he comes off of heated high flow. - continue to monitor - encourage PO nutrition. sleep during the night, awake during the day. 8. Severe protein calorie malnutrition -will continue to encourage p.o. as tolerated Quality VTE Deep Vein Thrombosis/Pulmonary Embolism Present on Admission: Yes
--- NOTE | 2021-02-22 15:54 | CM.DPC ---
DCP Cont: Per MD, pt continues to have full tx for COVID and still not oxygenating and could not tolerate CPAP and therefore lengthy discussion with spouse and decision for pt to remain DNR/DNI and no intubation and now to keep pt comfortable with morphine as he has been treated for 21 days and continues to decline in his health and not improve with full COVID tx. Pt also not really tolerating oral intake and quite emaciated. Plan: SW to follow in the morning to determine how pt tolerated more comfort focused tx and how well pt does overnight. Mohini Schroeder, CUSTOMER ORDERS CLERK
--- NOTE | 2021-02-22 22:28 | PC.NURSE ---
At beginning of shift pt presents lethargic and oriented to self and situation. Pt's responses are one word delayed responses. Pt sleeps for most of shift and spouse Violet attempts to get pt do drink ensure when he wakes up. Pt turned Q 2 hours with total assist. Pt drank two sips of ensure for entire shift and has been unable to swallow any of hi PO medications. Towards the evening pt would grab his forehead or grimace occasionally. Pt is unable to give details in regards to his reported pain. Pt has been given 4mg IV morphine at 1856. Pt on heated high flow at 60L and 100% for entire shift. SpO2 has remained above 92%. Pt was tachyopneic in the beginning shift with the greatest RR at 28bpm. Post morphine administration pt's RR has decreased to 10bpm. SpO2 remains above 92%. Pt continues to be responsive to verbal stimuli and when asked how he is doing he reports, I think I'm good. Spouse Violet and son plan to return in the am.
[2021-02-23 00:35] VITALS: BP 100/63; PULSE 80; RESP 17; O2SAT 100
[2021-02-23 03:22] VITALS: PULSE 90; RESP 16; O2SAT 97
[2021-02-23 05:03] LABS: Basophils Absolute Auto 0 /uL (0-100); Basophils Percent Auto 0.6 % (0-2); Eosinophils Absolute Auto 0 /uL (0-450); Eosinophils Percent Auto 0.1 % (2-4); Hematocrit 24.9 % (41-53); Hemoglobin 8.4 g/dL (13.5-17.5); Lymphocytes Absolute Auto 400 /uL (1100-4500); Lymphocytes Percent Auto 5.6 % (25-40); Mean Corpuscular HGB Conc 33.8 % (30-36); Mean Corpuscular Hemoglobin 35.1 PG (26-34); Mean Corpuscular Volume 103.6 fL (80-100); Monocytes Absolute Auto 400 /uL (0-900); Monocytes Percent Auto 6.5 % (3-14); Neutrophils Absolute Auto 5800 /uL (1500-7000); Neutrophils Percent Auto 87.2 % (50-75); Platelet Count 89 X10^3/uL (150-400); Red Blood Cell Count 2.41 X10^6/uL (4.5-5.9); White Blood Cell Count 6.7 X10^3/uL (4.5-11.0)
[2021-02-23 05:08] LABS: Add Manual Diff / Slide Review SLIDE REVIEW
[2021-02-23 05:12] LABS: BUN Creatinine Ratio 66.7 (6-22); Blood Urea Nitrogen 36 mg/dL (9-20); Calcium 7.8 mg/dL (8.4-10.2); Carbon Dioxide 30 mmol/L (22-32); Chloride 102 mmol/L (98-107); Estimated Glomerular Filt Rate > 60.0 mL/min (>60); Glucose 98 mg/dL (70-100); HEMOLYSIS < 15 (0-50); Potassium 3.9 mmol/L (3.4-5.1); Sodium 131 mmol/L (137-145)
[2021-02-23 06:51] LABS: Hypochromasia 2+
[2021-02-23 06:52] LABS: Anisocytosis 3+; Macrocytosis 1+
[2021-02-23 07:48] VITALS: PULSE 72; RESP 16; O2SAT 98
[2021-02-23 08:00] VITALS: BP 94/69; PULSE 68; RESP 16; TEMP 36.7; O2SAT 98
[2021-02-23] MEDS: predniSONE 20 MG TABLET 40 MG PO (08:40)
[2021-02-23] MEDS: ENOXAPARIN 100 MG/ML SYRINGE SUBCUT (08:41)
[2021-02-23] MEDS: METOPROLOL ER 25 MG TABLET PO (08:41)
[2021-02-23] MEDS: buPROPion XL 150 MG TAB PO (08:45)
[2021-02-23] MEDS: BARICITINIB 2 MG TABLET 4 MG PO (08:45)
[2021-02-23 10:30] VITALS: RESP 16; O2SAT 96
[2021-02-23] MEDS: MORPHINE 4 MG/ML INJ IV ×2 (10:54→14:19)
[2021-02-23 13:47] VITALS: PULSE 81; RESP 20; O2SAT 96
[2021-02-23] MEDS: MORPHINE 50 MG in DEXTROSE 5 % IN WATER 45 ML 5 ML IV (14:54)
--- NOTE | 2021-02-23 15:04 | PC.NURSE ---
Day Shift Note Dr. Grace spoke with family this afternoon about plan of care. Decision made at about 1350 by pt and pt's family (son and ) to transition to comfort care. Pt explicitly requesting a morphine gtt to combat air hunger and to be comfortable. Plan is to switch from heated HFNC to NC after initiation of morphine gtt per family and pt discussion in order to facilitate pt comfort. Morphine gtt started at 5 mg/hr. Appears comfortable at this time.
--- NOTE | 2021-02-23 15:36 | CM.DPC ---
DCP Comfort Care Per MD, pt was not able to tolerate trial of CPAP yesterday. Per RT, pt still on heated high flow 90-100% oxygen FIO2 without improvement. Spouse confirmed with MD yesterday that intubation would not be an option they would choose. Per RN, after spouse and son bedside with pt today decision made to change pt to comfort care with morphine drip for comfort from air hunger and change from FIO2 to NC oxygen once morphine started. Anticipated that pt will in the hospital once oxygen decreased. Plan: SW to follow closely for plan of pt to in the hospital likely overnight or tomorrow and any further d/c planning needs. RASHID Brower
--- NOTE | 2021-02-23 16:43 | PM.PN.1 ---
Subjective Subjective Interval history: The patient is a 60-year-old male who was admitted to the hospital with COVID pneumonia, he continues to have respiratory failure requiring high-flow oxygen. Since yesterday the patient has been maintained on 90% to 100% FiO2. He has been relatively hypotensive as well. He appears to be declining somewhat. Patient's and son are at the bedside and we have discussed prognosis and plans going forward. Patient denies any pain at this time. He does note morphine seems to help his breathing. Exam Vital Signs (past 8 hours): - 02/23/21 10:30 02/23/21 13:47 Pulse Rate 81 Respiratory Rate 16 20 Pulse Oximetry 96 96 Fraction of Inspired Oxygen 0.94 Oxygen Delivery Method Heated High Flow Oxygen Flow Rate 60 Narrative Exam Narrative: Ill-appearing male lying in bed Resp Other: Decreased breath sounds with occasional crackles Cardio Other: Cardiac exam: Regular rate and rhythm normal S1-S2 GI Other: Abdomen: Soft nontender nondistended Extrem Other: Extremity 2+ edema Objective Labs Result Diagrams: 02/23/21 04:50 02/23/21 04:50 Labs: Laboratory Results - last 24 hr 02/23/21 02/23/21 04:50 04:50 WBC 6.7 RBC 2.41 L Hgb 8.4 L Hct 24.9 L MCV 103.6 H MCH 35.1 H MCHC 33.8 RDW 23.0 H Plt Count 89 L Neut % (Auto) 87.2 H Lymph % (Auto) 5.6 L [place] % (Auto) 6.5 Eos % (Auto) 0.1 L Baso % (Auto) 0.6 Neut # (Auto) 5800 Lymph # (Auto) 400 L [place] # (Auto) 400 Eos # (Auto) 0 Baso # (Auto) 0 RBC Morphology See below Hypochromasia 2+ H Anisocytosis 3+ H Macrocytosis 1+ H Sodium 131 L Potassium 3.9 Chloride 102 Carbon Dioxide 30 BUN 36 H Creatinine 0.54 L Estimated GFR > 60.0 BUN/Creatinine Ratio 66.7 H Glucose 98 Calcium 7.8 L [facility] Medical History Cholangiocarcinoma COVID-19 vaccine series completed Rgxjk-Usyeqquzw-Igdpr syndrome Surgical History History of Whipple procedure Midline sternotomy scar Family History Mother CVA (cerebral vascular accident) Father Lung cancer Social History household members: spouse and family Smoking Status: Former smoker Assessment & Plan Assessment & Plan narrative: Acute Hypoxic Respiratory Failure secondary to Covid-19 pneumona -Patient completed REmdesivir and Decadron for 10 days -He is completing day 06/25 of Baricitinib -He remains hypoxic despite lasix -Patient now on steroids to treat post Covid Interstitial lung disease -Need to reinforce self proning -Continue oxygen taper -patient has developed significant hypoxia, is now on 100% FiO2, -given hypotension he was given 500 cc bolus of IV fluids, his metoprolol is being held -I discussed with his the prognosis, the patient has been here for 21 days and despite maximum treatment with therapy to include Decadron remdesivir, varices neb he continues to have progressive hypoxemia. His reiterated and confirmed that they would like for her to remain DNR DNI. We discussed the option of transitioning to comfort if maximum support she was not able to achieve improved oxygenation. Patient is placed on morphine 4 mg q.2 hours as needed in addition to Ativan 1 mg q.4 hours as needed for comfort. The patient developed worsening hypoxia will discuss with the transitioning to comfort measures only. Patient continues to require high-flow oxygen, he is indicated to his family that he is tired, he understands that he likely will not survive this. After discussion with the the patient will be moved to comfort measures. He will be started on a continuous morphine infusion. Once the patient is deemed to be comfortable he will be taken off high-flow oxygen, he will be placed on nasal prongs, it is anticipated that is imminent and the patient will be managed accordingly. He also will be given IV Ativan as needed for anxiety as well. All blood draws oral medications and other treatments will be discontinued. 2. Pancytopenia with recent right femoral DVT diagnosed 3 weeks ago and present on admission, also with prior history of ITP and chronic thrombocytopenia. Pancytopenia likely secondary to chemotherapy, possible COVID infection is contributing as well, now improved. -Patient was self administering enoxaparin 120 mg daily which was initially held -platelet count is 26 on admission compared to 63 in July 2020. Also has ? ITP based on oncology note that is scanned, though he does not appear to have any chronic medications related to ITP. -Recommendation was when his platelet count increases to over 50, he can resume his anticoagulation with enoxaparin. Consulted with Dr. Goldsmith, Oncologist at [facility]. -sent a HIT antibody given thrombosis and apparent worsening of thrombocytopenia and recent initiation of Lovenox. 4T score of 4, however vague presentation and alternative cause could be his acute infection or recent chemo which is more likely. This result was much less than the cutoff of 0.4 at .123 and HIT is highly unlikely. -transfuse for Plt <10, <50 if bleeding develops. No current signs of active bleeding. -restarted anticoagulation on 02/11 when thrombocytopenia improved. done D-Dimer 2651, at high risk for DVT, as patient here for weeks, will defer daily labs and suggest pediatric tubes All medications will be discontinued as the patient is on comfort care 3. Hypokalemia-secondary to diuresis, will replace potassium -no further diuresis -replace potassium All meds will be discontinued as the patient is on comfort care 4. paroxysmal atrial fibrillation, with rvr, resolved -developed afib with rvr on 02/10 and 02/11 and needed increasing doses of metoprolol -had become slightly bradycardic and in sinus on 02/14 so decreased metoprolol to 25mg BID -episodes of junctional rhythm with bradycardia noted earlier in hospitalization -again in afib as of 02/16 which improved the following day with continued oral medication. -d/c lasix, continue metoprolol BID for rate control -patient is hypotensive, will hold metoprolol and resume as blood pressure tolerates Will continue comfort care measures 5. Cholangiocarcinoma, s/p whipple procedure -comfort care 6. Diabetes, new diagnosis - A1c 6.6%, glucose elevated recently in setting of decadron therapy for COVID. Recommend dietary changes as an outpatient. - started on sliding scale insulin therapy, will continue 15 units of long acting this evening. All meds discontinued will focus on comfort 7. Acute toxic metabolic encephalopathy. - likely secondary to ICU delirium, in combination with steroids and opiate pain medications. Now improving. No focal deficits to suggest CVA, but will check head CT to rule out metastases if he comes off of heated high flow. - continue to monitor - encourage PO nutrition. sleep during the night, awake during the day. 8. Severe protein calorie malnutrition -will continue to encourage p.o. as tolerated Quality VTE Deep Vein Thrombosis/Pulmonary Embolism Present on Admission: Yes
[2021-02-23] MEDS: LORazepam 2 MG/ML INJ 1 MG IV ×3 (19:12→22:00)
[2021-02-23] MEDS: MORPHINE 50 MG in DEXTROSE 5 % IN WATER 45 ML 6 ML IV (19:33)
[2021-02-23] MEDS: SCOPOLAMINE 1 PATCH TOP (22:01)
[2021-02-24] MEDS: SODIUM CHLORIDE 0.9% 250 ML 21 ML IV (00:35)
[2021-02-24] MEDS: LORazepam 2 MG/ML INJ 1 MG IV ×8 (00:35→12:23)
[2021-02-24] MEDS: MORPHINE 50 MG in DEXTROSE 5 % IN WATER 45 ML 7 ML IV (01:41)
--- NOTE | 2021-02-24 06:52 | PC.NURSE ---
Pt. remains on 7 ml of continuous Morphine gtt with Lorazepam 1 mg almost q1h until 0300 per family's request. VS and physical assessment deferred per family. Pt. remains unresponsive with Rodolfo Yanez respiration. Pt. appears comfortable at the moment. Cont. comfort care.
--- NOTE | 2021-02-24 07:27 | P.PN_ITS ---
Subjective Subjective Date Patient Seen: 02/24/21 Interval history: He is comatose, breathing in a Rodolfo-Yanez fashion, clearly terminal. His family are by his side. He is dying of his cholangiocarcinoma after being taken off high-flow oxygen for his COVID and now only mildly hypoxic. Exam Vital Signs (past 8 hours): Fraction of Inspired Oxygen 0.94 Oxygen Delivery Method Nasal Cannula Oxygen Flow Rate 4 Narrative Exam Narrative: He is breathing about 6 times per minute and looks quite comfortable and comatose. His family are seated by his side calmly waiting for the end. His heart is faint and his pulse is difficult to find. His limbs are warm. Objective Labs Result Diagrams: 02/23/21 04:50 02/23/21 04:50 [facility] Medical History Cholangiocarcinoma COVID-19 vaccine series completed Cnyvd-Hqliqjpes-Iraow syndrome Surgical History History of Whipple procedure Midline sternotomy scar Family History Mother CVA (cerebral vascular accident) Father Lung cancer Social History household members: spouse and family Smoking Status: Former smoker Assessment & Plan Assessment & Plan narrative: Acute Hypoxic Respiratory Failure secondary to Covid-19 pneumona -he completed the standard range of treatment with remdesivir, Decadron and Baricitinib -after discussing with his children and his the prognosis, the patient has been here for 21 days and despite maximum treatment he continues to have progressive hypoxemia. His reiterated and confirmed that they would like for her to remain DNR DNI. We discussed the option of transitioning to comfort if maximum support she was not able to achieve improved oxygenation. Patient is placed on morphine 4 mg q.2 hours as needed in addition to Ativan 1 mg q.4 hours as needed for comfort. Mid day on 02/24 his Rodolfo-Yanez breathing stopped and he lost heartbeat and was pronounced. 2. Pancytopenia with recent right femoral DVT All medications were discontinued as the patient is on comfort care 3. Hypokalemia-secondary to diuresis All meds discontinued as the patient is on comfort care 4. Atrial Fibrillation Will continue comfort care measures 5. Cholangiocarcinoma, s/p whipple procedure -comfort care 6. Diabetes, new diagnosis All meds discontinued will focus on comfort 7. Acute toxic metabolic encephalopathy. - likely secondary to ICU delirium 8. Severe protein calorie malnutrition Quality VTE Deep Vein Thrombosis/Pulmonary Embolism Present on Admission: Yes
[2021-02-24] MEDS: MORPHINE 4 MG/ML INJ IV ×3 (07:55→12:23)
[2021-02-24] MEDS: MORPHINE 50 MG in DEXTROSE 5 % IN WATER 45 ML 10 ML IV (09:11)
--- NOTE | 2021-02-24 12:38 | PC.NURSE ---
Addendum entered by Whitney Arellano R.N. 02/24/21 17:46: Port a cath deaccessed and motta catheter removed. Pt picked up by [facility] at 1745. Addendum entered by Whitney Arellano R.N. 02/24/21 13:48: Summoned to bedside by family at 1335. Absence of breathing and absence of pulse/heartbeat confirmed at bedside. Dr. White notified. and son took all pt's belongings with them including pt's necklace. Pt to go to [facility] in [place] per . Coordinator aware. Original Note: Day Shift Note Pt nonresponsive and agonal breathing 4-6 bpm. Pt's and son are at bedside. Grimace noted at patient's brows and family relayed that they thought pt had been looking uncomfortable. Morphine gtt titrated to 10 mg/hr and prn Ativan administered. 4L HFNC remains in place for pt comfort and scope patch visibly in place below left ear. Pt now appears comfortable this afternoon with unfurrowed brow. Pt pale with some slight mottling noted to extremities and nose.
== END 2021-02-24 17:45 | disposition expired | DRG 177 ==
LOC: ED 20:23 → AC 20:46 → ICU 02-05 09:47
PROVIDERS: Internal Medicine; Admitting Provider Nurse Practitioner Family; Emergency Provider Emergency Medicine; PCP Physician Assistant; Referring Provider Emergency Medicine; Visit Provider Nurse Practitioner Family
DX: U07.1 COVID-19 (principal); J12.82 Pneumonia due to coronavirus disease 2019; J96.01 Acute respiratory failure with hypoxia; D61.810 Antineoplastic chemotherapy induced pancytopenia; J15.0 Pneumonia due to Klebsiella pneumoniae; G92 Toxic encephalopathy; E43 Unspecified severe protein-calorie malnutrition; C22.1 Intrahepatic bile duct carcinoma; E87.3 Alkalosis; C78.00 Secondary malignant neoplasm of unspecified lung; I48.91 Unspecified atrial fibrillation; D69.6 Thrombocytopenia, unspecified; E87.6 Hypokalemia; I45.6 Pre-excitation syndrome; K52.89 Other specified noninfective gastroenteritis and colitis; Z87.891 Personal history of nicotine dependence; Z68.24 Body mass index [BMI] 24.0-24.9, adult
CPT/HCPCS: 36415; 36591; 36600; 71045; 80048; 80053; 80076; 82550; 82728; 82805; 82962; 83036; 83605; 83615; 83735; 84145; 84484; 85007; 85025; 85027; 85379; 85651; 86022; 86140; 87040; 87070; 87077; 87186; 87205; 87493; 87635; 87797; 93005; 93010; 94660; 94760; 94762; 96365; 96368; 96375; 99284; 99285; C9803; J0696; J1100; J1160; J1642; J1650; J1815; J1940; J2060; J2270; J2405; J2765